=== PATIENT | male | born 1970 | race Caucasian/White ===

== ENCOUNTER 2016-02-21 12:49 | Emergency (ER) | payer OTHER ==
[2016-02-21] MEDS ORDERED: ASPIRIN 81 MG CHEW TABLET As Ordered ONE (13:20)
[2016-02-21] MEDS ORDERED: MORPHINE 2 MG/ML 1ML SYRINGE As Ordered ONE (13:23)
[2016-02-21] MEDS ORDERED: ONDANSETRON 4MG/2ML VIAL (J2405) As Ordered ONE (13:23)
[2016-02-21 13:38] LABS: BASO # 0.1 K/mm3 (0.0-0.2); BASO % 1.3 % (0.0-1.0); EOS # 0.2 K/mm3 (0.0-0.50); EOS % 2.4 % (0.0-3.0); LARGE UNSTAINED CELL # 0.2 K/mm3 (0.0-0.4); LARGE UNSTAINED CELL % 2.2 % (0.0-4.0); LYMPH # 1.9 K/mm3 (1.5-4.5); LYMPH % 17.8 % (24.0-44.0); MEAN CORPUSCULAR HEMOGLOBIN 30.2 pg (27.0-33.0); MEAN CORPUSCULAR HGB CONC 32.9 g/dl (32.0-36.5); MEAN CORPUSCULAR VOLUME 91.7 fl (80.0-96.0); MONO # 0.6 K/mm3 (0.0-0.8); MONO % 6.5 % (0.0-5.0); NEUTROPHILS # 6.6 K/mm3 (1.8-7.7); NEUTROPHILS % 69.8 % (36.0-66.0); PLATELET COUNT, AUTOMATED 184 k/mm3 (150-450); RED CELL DISTRIBUTION WIDTH 13.4 % (11.5-14.5); WHITE BLOOD COUNT 9.4 K/mm3 (4.0-10.0)
[2016-02-21 13:40] LABS: INR 0.96
[2016-02-21 13:46] LABS: ALBUMIN 4.4 GM/DL (3.2-5.2); ALBUMIN/GLOBULIN RATIO 1.76 (1.00-1.93); BILIRUBIN,DIRECT 0.2 MG/DL (0.0-0.2); BILIRUBIN,TOTAL 0.5 MG/DL (0.2-1.0); TOTAL PROTEIN 6.9 GM/DL (6.4-8.2)
[2016-02-21 13:47] LABS: ANION GAP 10 MEQ/L (8-16); BLOOD UREA NITROGEN 21 MG/DL (7-18); CALCIUM LEVEL 8.7 MG/DL (8.5-10.1); CARBON DIOXIDE LEVEL 25 MEQ/L (21-32); CHLORIDE LEVEL 108 MEQ/L (98-107); CREATININE FOR GFR 1.28 MG/DL (0.70-1.30); GLOMERULAR FILTRATION RATE > 60.0 (>60); GLUCOSE, FASTING 128 MG/DL (70-105); POTASSIUM SERUM 3.6 MEQ/L (3.5-5.1); SODIUM LEVEL 143 MEQ/L (136-145)
--- NOTE | 2016-02-21 13:57 | REP ---
Portable chest: Single view. History: Chest pain. Comparison study: October 26, 2015. Findings: EKG monitoring electrodes overlie the chest. Lungs are well inflated and clear. Heart size is normal. Pulmonary vasculature is not increased. Pleural angles are sharp. Impression: No active disease. Signed by Khanh Rizo MD 02/21/2016 01:47 P
[2016-02-21] MEDS ORDERED: ISOVUE-370 76% 100ML VIAL (Q9967) As Ordered ONE (14:23)
--- NOTE | 2016-02-21 17:08 | REP ---
CT pulmonary angiogram: With IV contrast. History: Chest pain. Comparison studies: November 20, 2013. Contrast dose: 75 cc's of Isovue [address] technique: Helical scanning is acquired and overlapping 1.5 mm and contiguous 3 mm axial images are reformatted. In addition, a 3-D work station is deployed to generate thick slab maximum intensity projection images in sagittal and coronal imaging projections. CT pulmonary angiographic findings: There is good opacification of the pulmonary arterial tree. There is no CT evidence of pulmonary embolism. Thoracic aorta enhances homogeneously and is normal in caliber and contour. There is no evidence of pleural or pericardial effusion. No hilar or mediastinal mass or adenopathy is appreciated. No extrathoracic mass or adenopathy is seen. No adrenal lesion is observed. The visualized upper abdominal structures are unremarkable. No infiltrate, atelectasis or mass lesion is seen in the lung natarajan. Bone window settings show no evidence of fracture or bony destructive lesion. Impression: Negative CT pulmonary angiogram. No CT evidence of pulmonary embolism. Signed by Khanh Rizo MD 02/21/2016 05:35 P
[2016-02-21] MEDS ORDERED: CLOPIDOGREL 300 MG TAB (PLAVIX) As Ordered ONE (18:10)
[2016-02-21] MEDS ORDERED: ENOXAPARIN 100MG/1ML SYRINGE (J1650) As Ordered ONE (18:10)
[2016-02-21] MEDS ORDERED: NITROGLYCERIN 2% OINT 1 GM *U/D* PKT As Ordered ONE (18:20)
[2016-02-21] MEDS ORDERED: LORazepam 2 MG/ML VIAL (J2060) As Ordered ONE (18:56)
--- NOTE | 2016-02-21 19:04 | EDDOCDS ---
Nurse's Notes [facility] [employer] Name: Scar Dinh Age: 45 yrs Sex: Male : 1970 Arrival Date: 02/21/2016 Time: 12:49 Bed 19 Private MD: Fernanda Chaney E Diagnosis: Non-ST elevation (NSTEMI) myocardial infarction Presentation: 02/20 12:56 Red Flag criteria, patient assessed and taken directly to a bed. dls 13:09 Presenting complaint: Patient states: Patient states he was out shoveling when at 1130 js13 he started feeling a pressure in his chest that radiated to his jaw with both arm becoming numb and tingly. Aspirin was not taken prior to arrival. Adult Sepsis Screening: The patient does not have new or worsening altered mentation. Patient's respiratory rate is less than 22. Systolic blood pressure is greater than 100. Patient has a qSOFA score of 0- Negative Sepsis Screen. Suicide/Homicide risk assessment- the patient denies having any suicidal and/or homicidal ideations and does not present with any other emotional, behavioral or mental health complaints. Status: . Transition of care: patient was not received from another setting of care. 13:09 Acuity: PITER Level 2 js13 13:09 Method Of Arrival: Walkin/Carried/Asstd js13 Triage Assessment: 13:12 General: Appears in no apparent distress, Behavior is appropriate for age, cooperative. js13 Pain: Location: chest. Pt Declines HIV testing. Neurological: Level of Consciousness is awake, alert. Cardiovascular: Rhythm is sinus rhythm Chest pain is described as mild, quality is pressure, radiates jaw(s) episodes are continuous began 2 hours prior to arrival. Respiratory: Airway is patent Respiratory effort is even, unlabored, Respiratory pattern is regular, symmetrical. Derm: Skin is pink, warm & dry. Historical: - Allergies: Codeine Sulfate (Anaphylaxis); - Home Meds: 1. Celexa 20 mg Oral tab 1 tab once daily 2. clonazepam 1 mg Oral tab 1 tab daily 3. multivitamin Oral tab 1 tab daily 4. Tricor 145 mg Oral tab 1 tab once daily - PMHx: Anxiety; Chronic Low Back Pain; Hypercholesterolemia; PTSD; - PSHx: Tonsillectomy; Hernia repair- Left inguinal; Hernia repair- Right inguinal; Arthroscopy, Knee- Right; repair right fifth finger; - Social history: Smoking status: Patient uses tobacco products, heavy tobacco smoker. No barriers to communication noted, The patient speaks fluent [place]. - Family history: Pertinent for heart disease. - : The pt / caregiver states he / she is not on anticoagulants. Home medication list is obtained from the patient. - Exposure Risk Screening:: None identified. Screenin:51 Screening information is obtained from the patient. Fall risk: No risks identified. ld5 Assistance ADL's: requires no assistance with activities of daily living. Abuse/DV Screen: The patient / caregiver reports he/she is: not in a situation that causes fear, pain or injury. Nutritional screening: No deficits noted. Advance Directives: There is no active DNR order. home support is adequate. Assessment: 13:14 General: Appears in no apparent distress, Behavior is cooperative, pleasant. Pain: ld5 Location: mid-sternal area Pain currently is 5 out of 10 on a pain scale. Pain radiates to neck Quality of pain is described as aching, pressure. Neurological: Level of Consciousness is awake, alert. 13:14 Cardiovascular: Chest pain is described as mild, quality is pressure, radiates to right ld5 to left jaw(s) began 1130. Cardiovascular: Capillary refill < 3 seconds in bilateral fingers Edema is absent. Respiratory: Airway is patent Respiratory effort is even, unlabored, Breath sounds are clear bilaterally. Reports shortness of breath. GI: Abdomen is non- distended Bowel sounds present X 4 quads. Abd is soft and non tender X 4 quads. Denies nausea, vomiting. Derm: Skin is intact, Skin is dry, flaking skin to face Skin is flushed, on face. Musculoskeletal: Range of motion intact in all extremities. 13:25 General: Pt reports headache after nitro. Will monitor to assess. ld5 14:00 General: Pt reports 0.5/10 pain. Second nitro given by Dr. Sal. Pt resting comfortably ld5 in bed. SO at bedside. Call barry within reach. Will continue to monitor. 14:45 General: Pt up to bedside to urinate. Tolerated well. Provider gave permission for ld5 clear fluids. Pt requested water and water given. Pt reports chest pressure has resolved but discomfort to jaw is back. Call barry within reach. Will continue to monitor. 15:27 General: Appears in no apparent distress, Behavior is cooperative, pleasant. ld5 Neurological: Level of Consciousness is awake, alert. Respiratory: Airway is patent Respiratory effort is even, unlabored. 15:47 General: Pt resting comfortably in bed. Aware of plan for repeat blood work and EKG. ld5 Will continue to monitor. 16:50 General: Appears in no apparent distress, Behavior is cooperative, No return of ld5 symptoms. Will continue to monitor. 17:35 General: Blood work sent to lab and EKG repeated. Pt resting comfortably in bed. Denies ld5 any needs. Will continue to monitor. 18:07 General: Pt sitting up in bed watching TV. Denies pain. SO at bedside. Will continue to ld5 monitor. 18:51 General: Pt continues to deny pain. Aware of plan for transport to [facility]. Denies any ld5 needs. Fluids started for transport. Will continue to monitor. 19:01 General: Pt appears anxious. Reports feeling nervous about the diagnosis. Requesting ld5 medication to help relax. BP elevated. Provider aware and med given. Vital Signs: 12:51 BP 169 / 108; Pulse 73; Resp 16; Pulse Ox 98% ; elp 13:22 BP 150 / 84 (auto/); ld5 13:22 Pulse 80 MON; Pulse Ox 97% ; ld5 13:34 BP 143 / 80 (auto/); ld5 13:35 Pulse 70 MON; Pulse Ox 97% ; ld5 13:47 Temp 97.6(O); Weight 97.52 kg (R); Height 72 in. (182.88 cm) (R); ct3 13:58 BP 149 / 84; Pulse 69; ld5 14:03 Pulse 68 MON; Pulse Ox 95% ; ld5 14:04 BP 138 / 80 (auto/); ld5 14:19 BP 129 / 82 (auto/); ld5 14:19 Pulse 64 MON; Pulse Ox 96% ; ld5 14:34 BP 132 / 81 (auto/); ld5 14:37 Pulse 70 MON; Pulse Ox 96% ; ld5 14:49 BP 138 / 82 (auto/); ld5 14:50 Pulse 76 MON; Pulse Ox 95% ; ld5 15:19 BP 114 / 74 (auto/); ld5 15:19 Pulse 56 MON; Pulse Ox 96% ; ld5 15:34 BP 134 / 86 (auto/); ld5 15:34 Pulse 60 MON; Pulse Ox 96% ; ld5 15:49 BP 138 / 85 (auto/); ld5 15:49 Pulse 58 MON; Pulse Ox 94% ; ld5 16:04 BP 130 / 83 (auto/); ld5 16:04 Pulse 58 MON; Resp 16; Pulse Ox 94% ; Pain 0/10; ld5 16:49 BP 126 / 75 (auto/); ld5 16:49 Pulse 58 MON; Pulse Ox 95% ; ld5 17:04 BP 119 / 75 (auto/); ld5 17:05 Pulse 58 MON; Pulse Ox 96% ; ld5 18:04 BP 128 / 83 (auto/); ld5 18:04 Pulse 58 MON; Resp 16; Temp 96.4(O); Pulse Ox 95% ; Pain 0/10; ld5 18:43 BP 164 / 102 (auto/); ld5 18:43 Pulse 64 MON; Pulse Ox 97% ; ld5 18:49 BP 166 / 104 (auto/); ld5 18:49 Pulse 64 MON; Pulse Ox 97% ; ld5 18:53 BP 167 / 102 (auto/); ld5 18:53 Pulse 64 MON; Pulse Ox 97% ; ld5 19:02 BP 161 / 101; Pulse 61; Resp 16; Temp 96.6; Pulse Ox 98% on R/A; Pain 0/10; ld5 13:47 Body Mass Index 29.16 (97.52 kg, 182.88 cm) ct3 Vitals: 12:51 Log In Time: February 21, 2016 at 12:48. RN notified that patient meets Red Flag elp criteria. ED Course: 12:51 Patient visited by Gi Byers PCA. elp 12:51 Fernanda Chaney is Private Physician. elp 12:51 Patient moved to Waiting elp 12:52 Patient visited by Gi Byers PCA. elp 12:52 Patient moved to 19 elp 12:58 Accompanied by Family Member, Patient has correct armband on for positive ct3 identification. Placed in gown. Bed in low position. Call light in reach. Side rails up X2. provisioning analyst on. Pulse ox on. NIBP on. 12:58 EKG done. (by ED staff). Reviewed by Eric Gonzalez MD. ct3 13:05 Patient visited by Maria Elena Payne PCA. ct3 13:10 Robert Roth MD is Attending Physician. ml 13:10 Patient visited by Robert Roth MD. ml 13:11 Triage Initiated js13 13:42 Inserted saline lock: 20 gauge in right antecubital area and blood collected. The ld5 patient tolerated the procedure well. Labs drawn. (by ED staff). Sent per order to lab. 13:43 Patient visited by Fernanda David RN. ld5 13:47 Patient visited by Maria Elena Payne PCA. ct3 14:12 Patient visited by Fernanda David RN. ld5 14:18 [facility] Payment Agreement was scanned into [employer] and attached to record. dm19 14:20 Patient visited by Fernanda David RN. ld5 14:30 Chest, 1 View Returned. EDMS 14:56 Patient visited by Fernanda David RN. ld5 15:03 Patient visited by Fernanda David RN. ld5 15:28 Patient visited by Fernanda David RN. ld5 15:48 Patient visited by Fernanda David RN. ld5 16:18 Patient visited by Fernanda David RN. ld5 16:51 Patient visited by Fernanda David RN. ld5 17:10 CT Chest Angio R/O PE Returned. EDMS 17:24 Patient visited by Fernanda David RN. ld5 17:33 EKG done. (by ED staff). Reviewed by Robert Roth MD. ct3 17:42 Patient visited by Maria Elena Payne PCA. ct3 18:08 Patient visited by Fernanda David RN. ld5 18:36 No procedures done that require assistance. ld5 18:54 Patient visited by Fernanda David RN. ld5 18:54 The patient / caregiver is instructed regarding the plan of care and ED course. ld5 19:02 Patient visited by Fernanda David RN. ld5 Administered Medications: 13:15 Drug: NS 0.9% 1000 ml [sodium chloride 0.9 % intravenous solution] Route: IV; Rate: ld5 bolus; Site: right antecubital; 15:03 Follow up: IV Status: Completed infusion; IV Intake: 1000ml ld5 13:20 Drug: Nitrostat 0.4 mg [Nitrostat 0.4 mg sublingual tablet (1 tabs)] Route: Sublingual; ld5 13:58 Follow up: BP 149 / 84; Pulse 69 bpm ld5 13:27 Drug: Aspirin 243 mg [aspirin 81 mg chewable tablet (3 tabs)] Route: PO; ld5 13:29 Drug: Ondansetron 4 mg [ondansetron HCl 2 mg/mL intravenous solution (2 mL)] Route: ld5 IVP; Site: right antecubital; 13:35 Drug: morphine 2 mg [morphine 2 mg/mL intravenous cartridge (1 mL)] Route: IVP; Site: ld5 right antecubital; 14:05 Follow up: Response: Pain is decreased; see vital record. Pain of 0.5/10 ld5 14:00 Drug: Nitrostat 0.4 mg [Nitrostat 0.4 mg sublingual tablet (1 tabs)] {Note: given by ld5 Dr. Sal.} Route: Sublingual; 14:18 Follow up: pt reports jaw pain has resolved but continues with some intermittent chest ld5 pressure. 3rd nitro held per Dr. Sal 18:22 Drug: Plavix - Clopidogrel 600 mg [clopidogrel 75 mg tablet (8 tabs)] {Note: 2 300 mg ld5 tablets.} Route: PO; 18:22 Drug: Enoxaparin (1mg/kg) 100 mg [enoxaparin 100 mg/mL subcutaneous syringe (1 mL)] ld5 {Co-Signature: pml (Lola Hyde RN).} Route: Sub-Q; Site: left lower abdomen; 18:51 Drug: Nitro-Bid 0.5 inches [Nitro-Bid 2 % transdermal ointment (0.5 inches)] Route: ld5 Transdermal; Site: anterior chest wall; 18:51 Drug: NS 0.9% 1000 ml [sodium chloride 0.9 % intravenous solution] Route: IV; Rate: 100 ld5 mL/hr; Site: right antecubital; 18:51 Follow up: IV Status: Infusion continued on transport ld5 19:00 Drug: LORazepam 1 mg [lorazepam 2 mg/mL injection solution (0.5 mL)] Route: IVP; Site: ld5 right antecubital; Intake: 15:03 IV: 1000.00ml; Total: 1000.00ml. ld5 Output: 14:56 Urine: 550.00ml (Voided); Total: 550.00ml. ld5 Order Results: Lab Order: CBC with Diff; SPEC'M 02/21/16 13:12 Test: WHITE BLOOD COUNT; Value: 9.4; Range: 4.0-10.0; Units: K/mm3; Status: F Test: RED BLOOD COUNT; Value: 5.24; Range: 4.30-6.10; Units: M/mm3; Status: F Test: HEMOGLOBIN; Value: 15.8; Range: 14.0-18.0; Units: g/dl; Status: F Test: HEMATOCRIT; Value: 48.0; Range: 42.0-52.0; Units: %; Status: F Test: MEAN CORPUSCULAR VOLUME; Value: 91.7; Range: 80.0-96.0; Units: fl; Status: F Test: MEAN CORPUSCULAR HEMOGLOBIN; Value: 30.2; Range: 27.0-33.0; Units: pg; Status: F Test: MEAN CORPUSCULAR HGB CONC; Value: 32.9; Range: 32.0-36.5; Units: g/dl; Status: F Test: RED CELL DISTRIBUTION WIDTH; Value: 13.4; Range: 11.5-14.5; Units: %; Status: F Test: PLATELET COUNT, AUTOMATED; Value: 184; Range: 150-450; Units: k/mm3; Status: F Test: NEUTROPHILS %; Value: 69.8; Range: 36.0-66.0; Abnormal: Above high normal; Units: %; Status: F Test: LYMPH %; Value: 17.8; Range: 24.0-44.0; Abnormal: Below low normal; Units: %; Status: F Test: MONO %; Value: 6.5; Range: 0.0-5.0; Abnormal: Above high normal; Units: %; Status: F Test: EOS %; Value: 2.4; Range: 0.0-3.0; Units: %; Status: F Test: BASO %; Value: 1.3; Range: 0.0-1.0; Abnormal: Above high normal; Units: %; Status: F Test: LARGE UNSTAINED CELL %; Value: 2.2; Range: 0.0-4.0; Units: %; Status: F Test: NEUTROPHILS #; Value: 6.6; Range: 1.8-7.7; Units: K/mm3; Status: F Test: LYMPH #; Value: 1.9; Range: 1.5-4.5; Units: K/mm3; Status: F Test: MONO #; Value: 0.6; Range: 0.0-0.8; Units: K/mm3; Status: F Test: EOS #; Value: 0.2; Range: 0.0-0.50; Units: K/mm3; Status: F Test: BASO #; Value: 0.1; Range: 0.0-0.2; Units: K/mm3; Status: F Test: LARGE UNSTAINED CELL #; Value: 0.2; Range: 0.0-0.4; Units: K/mm3; Status: F Lab Order: MED Profile; [facility]' 02/21/16 13:12 Test: GLUCOSE, FASTING; Value: 128; Range: 70-105; Abnormal: Above high normal; Units: MG/DL; Status: F Test: BLOOD UREA NITROGEN; Value: 21; Range: 7-18; Abnormal: Above high normal; Units: MG/DL; Status: F Test: CREATININE FOR GFR; Value: 1.28; Range: 0.70-1.30; Units: MG/DL; Status: F Test: GLOMERULAR FILTRATION RATE; Value: > 60.0; Range: >60; Status: F Test: SODIUM LEVEL; Value: 143; Range: 136-145; Units: MEQ/L; Status: F Test: POTASSIUM SERUM; Value: 3.6; Range: 3.5-5.1; Units: MEQ/L; Status: F Test: CHLORIDE LEVEL; Value: 108; Range: 98-107; Abnormal: Above high normal; Units: MEQ/L; Status: F Test: CARBON DIOXIDE LEVEL; Value: 25; Range: 21-32; Units: MEQ/L; Status: F Test: ANION GAP; Value: 10; Range: 8-16; Units: MEQ/L; Status: F Test: CALCIUM LEVEL; Value: 8.7; Range: 8.5-10.1; Units: MG/DL; Status: F Test Note: ; Units are mL/min/1.73 m2 Chronic Kidney Disease Staging per NKF: Stage I & II GFR >=60 Normal to Mildly Decreased Stage III GFR 30-59 Moderately Decreased Stage IV GFR 15-29 Severely Decreased Stage V GFR <15 Very Little GFR Left ESRD GFR <15 on LOT ASSOCIATE Lab Order: CIP; SPEC'02/21/16 13:12 Test: CPK CREATINE PHOSPHOKINASE; Value: 172; Range: 39-308; Units: U/L; Status: F Test: CK-MB VALUE MASS; Value: 1.3; Range: 0.0-3.6; Units: NG/ML; Status: F Test: MB/CK RELATIVE INDEX; Value: 0.75; Range: < OR =4; Status: F Test Note: ; DIAGNOSIS CRITERIA MMB ng/ml Relative Index (RI) NON-AMI < or = 5 N/A SAL ZONE > 5 < or = 4 AMI > 5 > 4 Lab Order: Troponin; SPEC02/21/16 13:12 Test: TROPONIN I; Value: < 0.02; Range: < 0.10; Units: NG/ML; Status: F Test Note: ; Troponin I Reference Interval for [place] LOCI: 99th Percentile= 0.00-0.045 ng/ml Risk Stratification: <= 0.10 ng/ml Decreased Risk for Adverse Clinical Events. 0.10-1.50 ng/ml Increased Risk for Adverse Clinical Events. Evaluation of additional criterion and/or repeat testing in 2-6 hours is suggested to rule out myocardial damage. >= 1.50 ng/ml Indicative of Myocardial Injury. Lab Order: PT/INR; SPEC02/21/16 13:12 Test: PROTHROMBIN TIME; Value: 12.9; Range: 12.3-14.5; Units: SECONDS; Status: F Test: INR; Value: 0.96; Status: F Test Note: ; THERAPUTIC HUMAN INR VALUES INDICATIONS NORMAL RANGES PROPHYLAXIS/TREATMENT OF: VENOUS THROMBOSIS 2.0-3.0 PULMONARY EMBOLISM 2.0-3.0 PREVENTION OF SYSTEMIC EMBOLISM FROM: TISSUE HEART VALVES 2.0-3.0 ACUTE MYOCARDIAL INFARCTION 2.0-3.0 VALVULAR HEART DISEASE 2.0-3.0 ATRIAL FIBRILLATION 2.0-3.0 MECHANICAL VALVES(HIGH RISK) 2.5-3.5 RECURRENT MYOCARDIAL INFARCTION 2.5-3.5 Lab Order: PTT; [facility] 02/21/16 13:12 Test: PARTIAL THROMBOPLASTIN TIME; Value: 41.4; Range: 26.6-37.1; Abnormal: Above high normal; Units: SECONDS; Status: F Lab Order: Liver Profile; [facility] 02/21/16 13:12 Test: AST/SGOT; Value: 19; Range: 15-37; Units: U/L; Status: F Test: ALT/SGPT; Value: 36; Range: 12-78; Units: U/L; Status: F Test: ALKALINE PHOSPHATASE; Value: 77; Range: 45-117; Units: U/L; Status: F Test: BILIRUBIN,TOTAL; Value: 0.5; Range: 0.2-1.0; Units: MG/DL; Status: F Test: BILIRUBIN,DIRECT; Value: 0.2; Range: 0.0-0.2; Units: MG/DL; Status: F Test: TOTAL PROTEIN; Value: 6.9; Range: 6.4-8.2; Units: GM/DL; Status: F Test: ALBUMIN; Value: 4.4; Range: 3.2-5.2; Units: GM/DL; Status: F Test: ALBUMIN/GLOBULIN RATIO; Value: 1.76; Range: 1.00-1.93; Status: F Lab Order: CARDIAC MARKER PANEL; [facility] 02/21/16 17:15 Test: CPK CREATINE PHOSPHOKINASE; Value: 180; Range: 39-308; Units: U/L; Status: F Test: CK-MB VALUE MASS; Value: 5.5; Range: 0.0-3.6; Abnormal: Above high normal; Units: NG/ML; Status: F Test: MB/CK RELATIVE INDEX; Value: 3.05; Range: < OR =4; Status: F Test: TROPONIN I; Value: 0.96; Range: < 0.10; Abnormal: High; Units: NG/ML; Status: F Test Note: ; DIAGNOSIS CRITERIA MMB ng/ml Relative Index (RI) NON-AMI < or = 5 N/A SAL ZONE > 5 < or = 4 AMI > 5 > 4 Radiology Order: Chest, 1 View Test: Chest, 1 View REASON FOR EXAMINATION: cp; Portable chest: Single view.; ; History: Chest pain.; ; Comparison study: October 26, 2015.; ; Findings: EKG monitoring electrodes overlie the chest. Lungs are well inflated; and clear. Heart size is normal. Pulmonary vasculature is not increased.; Pleural angles are sharp.; ; Impression:; ; No active disease.; ; ; Signed by; Khanh Rizo MD 02/21/2016 01:47 P; Radiology Order: CT Chest Angio R/O PE Test: CT Chest Angio R/O PE REASON FOR EXAMINATION: Chest Pain; CT pulmonary angiogram: With IV contrast.; ; History: Chest pain.; ; Comparison studies: November 20, 2013.; ; Contrast dose: 75 cc's of Isovue 370 are administered intravenously.; ; CT technique: Helical scanning is acquired and overlapping 1.5 mm and contiguous; 3 mm axial images are reformatted. In addition, a 3-D work station is deployed; to generate thick slab maximum intensity projection images in sagittal and; coronal imaging projections.; ; CT pulmonary angiographic findings: There is good opacification of the pulmonary; arterial tree. There is no CT evidence of pulmonary embolism. Thoracic aorta; enhances homogeneously and is normal in caliber and contour. There is no; evidence of pleural or pericardial effusion. No hilar or mediastinal mass or; adenopathy is appreciated. No extrathoracic mass or adenopathy is seen. No; adrenal lesion is observed. The visualized upper abdominal structures are; unremarkable. No infiltrate, atelectasis or mass lesion is seen in the lung; natarajan. Bone window settings show no evidence of fracture or bony destructive; lesion.; ; Impression:; ; Negative CT pulmonary angiogram. No CT evidence of pulmonary embolism.; ; ; Signed by; Khanh Rizo MD 02/21/2016 05:35 P; Outcome: 18:28 ER care complete, transfer ordered by Provider. ml 18:36 CT Study completed. Admission hand-off: Report called to Teena Mejia RN at [facility]. ld5 18:53 Discharge Assessment: Patient awake, alert and oriented x 3. No cognitive and/or ld5 functional deficits noted. Patient verbalized understanding of disposition instructions. patient administered narcotics - yes. Patient was admitted to the hospital or transferred to another facility. [facility] to accompanying personnel Miles Faith. Condition: stable. Property :Personal belongings accompany Pt. 19:02 Patient left the ED. ld5 Signatures: Dispatcher [employer] EDNV Robert Roth MD MD Mary Dejesus RN RN Fernanda Riddle RN RN ld5 Maria Elena Payne, DATA INTEGRATION ANALYST DATA INTEGRATION ANALYST ct3 Zaida ToureRN RN js13 Gi Byers, DATA INTEGRATION ANALYST DATA INTEGRATION ANALYST elp Kierra Gresham dm19 Lola Hyde RN pml MTDD
--- NOTE | 2016-02-21 19:04 | EDDOCDS ---
Physician Documentation [facility] Name: Scar Dinh Age: 45 yrs Sex: Male : 1970 Arrival Date: 02/21/2016 Time: 12:49 Bed 19 Private MD: Fernanda Chaney E Disposition: 02/20 18:28 Critical Care:. ml Disposition: 02/21/16 18:28 Transfer ordered to [facility]. Diagnosis is Non-ST elevation (NSTEMI) myocardial infarction. - Reason for transfer: Higher level of care. - Accepting physician is dr mortensen. - Condition is Stable. - Problem is new. - Symptoms have improved. Historical: - Allergies: Codeine Sulfate (Anaphylaxis); - Home Meds: 1. Celexa 20 mg Oral tab 1 tab once daily 2. clonazepam 1 mg Oral tab 1 tab daily 3. multivitamin Oral tab 1 tab daily 4. Tricor 145 mg Oral tab 1 tab once daily - PMHx: Anxiety; Chronic Low Back Pain; Hypercholesterolemia; PTSD; - PSHx: Tonsillectomy; Hernia repair- Left inguinal; Hernia repair- Right inguinal; Arthroscopy, Knee- Right; repair right fifth finger; - Social history: Smoking status: Patient uses tobacco products, heavy tobacco smoker. No barriers to communication noted, The patient speaks fluent Croatian. - Family history: Pertinent for heart disease. - : The pt / caregiver states he / she is not on anticoagulants. Home medication list is obtained from the patient. - Exposure Risk Screening:: None identified. Vital Signs: 12:51 BP 169 / 108; Pulse 73; Resp 16; Pulse Ox 98% ; elp 13:22 BP 150 / 84 (auto/); ld5 13:22 Pulse 80 MON; Pulse Ox 97% ; ld5 13:34 BP 143 / 80 (auto/); ld5 13:35 Pulse 70 MON; Pulse Ox 97% ; ld5 13:47 Temp 97.6(O); Weight 97.52 kg / 214.99 lbs (R); Height 72 in. (182.88 cm) (R); ct3 13:58 BP 149 / 84; Pulse 69; ld5 14:03 Pulse 68 MON; Pulse Ox 95% ; ld5 14:04 BP 138 / 80 (auto/); ld5 14:19 BP 129 / 82 (auto/); ld5 14:19 Pulse 64 MON; Pulse Ox 96% ; ld5 14:34 BP 132 / 81 (auto/); ld5 14:37 Pulse 70 MON; Pulse Ox 96% ; ld5 14:49 BP 138 / 82 (auto/); ld5 14:50 Pulse 76 MON; Pulse Ox 95% ; ld5 15:19 BP 114 / 74 (auto/); ld5 15:19 Pulse 56 MON; Pulse Ox 96% ; ld5 15:34 BP 134 / 86 (auto/); ld5 15:34 Pulse 60 MON; Pulse Ox 96% ; ld5 15:49 BP 138 / 85 (auto/); ld5 15:49 Pulse 58 MON; Pulse Ox 94% ; ld5 16:04 BP 130 / 83 (auto/); ld5 16:04 Pulse 58 MON; Resp 16; Pulse Ox 94% ; Pain 0/10; ld5 16:49 BP 126 / 75 (auto/); ld5 16:49 Pulse 58 MON; Pulse Ox 95% ; ld5 17:04 BP 119 / 75 (auto/); ld5 17:05 Pulse 58 MON; Pulse Ox 96% ; ld5 18:04 BP 128 / 83 (auto/); ld5 18:04 Pulse 58 MON; Resp 16; Temp 96.4(O); Pulse Ox 95% ; Pain 0/10; ld5 18:43 BP 164 / 102 (auto/); ld5 18:43 Pulse 64 MON; Pulse Ox 97% ; ld5 18:49 BP 166 / 104 (auto/); ld5 18:49 Pulse 64 MON; Pulse Ox 97% ; ld5 18:53 BP 167 / 102 (auto/); ld5 18:53 Pulse 64 MON; Pulse Ox 97% ; ld5 19:02 BP 161 / 101; Pulse 61; Resp 16; Temp 96.6; Pulse Ox 98% on R/A; Pain 0/10; ld5 13:47 Body Mass Index 29.16 (97.52 kg, 182.88 cm) ct3 MDM: 12:55 ECG WITH READING ER PHYS+CARDIAG ordered. EDMS 13:27 IV Saline Lock ordered. ml 13:27 Actor Understudy/Pulse Ox/q 15 min VS ordered. ml 13:27 Rhythm Strip to chart ordered. ml 13:27 Aspirin Chewable Tablet 243 mg PO once ordered. ml 13:27 Nitrostat 0.4 mg Sublingual every 5 minutes; hold if SBP<90mmHg.Document Pain Score ml Response to Each Dose x3 ordered. 13:27 morphine 2 mg IVP once ordered. ml 13:27 Ondansetron 4 mg IVP once ordered. ml 13:28 NS 0.9% 1000 ml IV at bolus once ordered. ml 13:28 Oral Temp ordered. ml 13:28 CBC with Diff Ordered. EDMS 13:28 MED Profile Ordered. EDMS 13:28 CIP Ordered. EDMS 13:29 Troponin Ordered. EDMS 13:29 PT/INR Ordered. EDMS 13:29 PTT Ordered. EDMS 13:29 Chest, 1 View Ordered. EDMS 13:29 Liver Profile Ordered. EDMS 13:52 CBC with Diff Reviewed. ml 13:52 MED Profile Reviewed. ml 13:52 PTT Reviewed. ml 13:52 CIP Reviewed. ml 13:52 Troponin Reviewed. ml 13:52 PT/INR Reviewed. ml 13:52 Liver Profile Reviewed. ml 13:53 Misc. Nursing Order ordered. ml 13:54 Repeat EKG (put time details section) ordered. ml 13:54 Redraw CIP &Troponin (put time in details section) ordered. ml 13:57 Redraw CIP &Troponin (put time in details section) complete. ar3 13:57 Repeat EKG (put time details section) complete. ar3 13:58 ECG WITH READING ER PHYS ordered. EDMS 13:58 CARDIAC MARKER PANEL Ordered. EDMS 14:17 Redraw CIP &Troponin (put time in details section) ordered. ml 14:17 Repeat EKG (put time details section) ordered. ml 14:18 [facility] [place] was scanned into [employer] and attached to record. dm19 14:18 Financial registration complete. dm19 14:18 CT Chest Angio R/O PE Ordered. EDMS 14:25 Repeat EKG (put time details section) complete. ar3 14:25 Redraw CIP &Troponin (put time in details section) complete. ar3 14:26 ECG WITH READING ER PHYS ordered. EDMS 18:03 CARDIAC MARKER PANEL Reviewed. ml 18:03 Chest, 1 View Reviewed. ml 18:03 CT Chest Angio R/O PE Reviewed. ml 18:06 Plavix - Clopidogrel 600 mg PO once ordered. ml 18:07 Enoxaparin (1mg/kg) 100 mg Sub-Q once; Ensure no Heparin in past 6hrs. Ensure any ml baseline labs are drawn. ordered. 18:44 Nitro-Bid Ointment 2 % 0.5 inches Transdermal once ordered. ml 18:51 NS 0.9% 1000 ml IV at 100 mL/hr continuous ordered. ld5 19:00 LORazepam 1 mg IVP once ordered. ld5 Administered Medications: 13:15 Drug: NS 0.9% 1000 ml [sodium chloride 0.9 % intravenous solution] Route: IV; Rate: ld5 bolus; Site: right antecubital; 15:03 Follow up: IV Status: Completed infusion; IV Intake: 1000ml ld5 13:20 Drug: Nitrostat 0.4 mg [Nitrostat 0.4 mg sublingual tablet (1 tabs)] Route: Sublingual; ld5 13:58 Follow up: BP 149 / 84; Pulse 69 bpm ld5 13:27 Drug: Aspirin 243 mg [aspirin 81 mg chewable tablet (3 tabs)] Route: PO; ld5 13:29 Drug: Ondansetron 4 mg [ondansetron HCl 2 mg/mL intravenous solution (2 mL)] Route: ld5 IVP; Site: right antecubital; 13:35 Drug: morphine 2 mg [morphine 2 mg/mL intravenous cartridge (1 mL)] Route: IVP; Site: ld5 right antecubital; 14:05 Follow up: Response: Pain is decreased; see vital record. Pain of 0.5/10 ld5 14:00 Drug: Nitrostat 0.4 mg [Nitrostat 0.4 mg sublingual tablet (1 tabs)] {Note: given by ld5 Dr. Sal.} Route: Sublingual; 14:18 Follow up: pt reports jaw pain has resolved but continues with some intermittent chest ld5 pressure. 3rd nitro held per Dr. Sal 18:22 Drug: Plavix - Clopidogrel 600 mg [clopidogrel 75 mg tablet (8 tabs)] {Note: 2 300 mg ld5 tablets.} Route: PO; 18:22 Drug: Enoxaparin (1mg/kg) 100 mg [enoxaparin 100 mg/mL subcutaneous syringe (1 mL)] ld5 {Co-Signature: pml (Lola Hyde RN).} Route: Sub-Q; Site: left lower abdomen; 18:51 Drug: Nitro-Bid 0.5 inches [Nitro-Bid 2 % transdermal ointment (0.5 inches)] Route: ld5 Transdermal; Site: anterior chest wall; 18:51 Drug: NS 0.9% 1000 ml [sodium chloride 0.9 % intravenous solution] Route: IV; Rate: 100 ld5 mL/hr; Site: right antecubital; 18:51 Follow up: IV Status: Infusion continued on transport ld5 19:00 Drug: LORazepam 1 mg [lorazepam 2 mg/mL injection solution (0.5 mL)] Route: IVP; Site: ld5 right antecubital; Critical Care Time: 18:28 Critical care time: Bedside Care: 120 minutes, Consultation: 20 minutes. Total time: ml 140 minutes Signatures: Dispatcher [employer] EDMS Rboert Roth MD MD ml Rabon, Alicia, RASHIDA CHEMOTHERAPIST ar3 Fernanda David RN RN ld5 Zaida Toure RN RN [id number] Kierra Gresham dm19 Lola Hyde RN pml The chart was reviewed and I authenticate all verbal orders and agree with the evaluation and treatment provided.Corrections: (The following items were deleted from the chart) 14:22 14:17 Repeat EKG (put time details section) ordered. ar3 14:22 14:17 Redraw CIP &Troponin (put time in details section) ordered. cox monett3 19:00 14:25 CARDIAC MARKER PANEL ordered. EDMI EDMS Attachments: 14:18 [facility] Payment Agreement dm19 MTDD
--- NOTE | 2016-02-21 23:02 | ECGEPIP ---
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
--- NOTE | 2016-02-21 23:06 | ECGEPIP ---
Stationary ECG Study [facility] - ED Test Date: 2016-02-21 Pat Name: JOHANN STOKES Department: Room: - Gender: M Deadener: ct : 1970 Requested By: Robert Roth Order Number: [id number] Reading MD: Eric Gonzalez Measurements Intervals [place] Rate: 53 P: 39 MN: 148 QRS: 20 QRSD: 88 T: 13 QT: 454 QTc: 428 Interpretive Statements SINUS BRADYCARDIA Electronically Signed On 02-21-2016 23:05:49 EST by Eric Gonzalez
--- NOTE | 2016-02-24 11:33 | EDDOCDS ---
Nurse's Notes [facility] Name: Scar Stokes Age: 45 yrs Sex: Male : 1970 Arrival Date: 02/21/2016 Time: 12:49 Bed 19 Private MD: Fernanda Chaney E Diagnosis: Non-ST elevation (NSTEMI) myocardial infarction Presentation: 02/20 12:56 Red Flag criteria, patient assessed and taken directly to a bed. dls 13:09 Presenting complaint: Patient states: Patient states he was out shoveling when at 1130 js13 he started feeling a pressure in his chest that radiated to his jaw with both arm becoming numb and tingly. Aspirin was not taken prior to arrival. Adult Sepsis Screening: The patient does not have new or worsening altered mentation. Patient's respiratory rate is less than 22. Systolic blood pressure is greater than 100. Patient has a qSOFA score of 0- Negative Sepsis Screen. Suicide/Homicide risk assessment- the patient denies having any suicidal and/or homicidal ideations and does not present with any other emotional, behavioral or mental health complaints. Status: . Transition of care: patient was not received from another setting of care. 13:09 Acuity: PITER Level 2 js13 13:09 Method Of Arrival: Walkin/Carried/Asstd js13 Triage Assessment: 13:12 General: Appears in no apparent distress, Behavior is appropriate for age, cooperative. js13 Pain: Location: chest. Pt Declines HIV testing. Neurological: Level of Consciousness is awake, alert. Cardiovascular: Rhythm is sinus rhythm Chest pain is described as mild, quality is pressure, radiates jaw(s) episodes are continuous began 2 hours prior to arrival. Respiratory: Airway is patent Respiratory effort is even, unlabored, Respiratory pattern is regular, symmetrical. Derm: Skin is pink, warm & dry. Historical: - Allergies: Codeine Sulfate (Anaphylaxis); - Home Meds: 1. Celexa 20 mg Oral tab 1 tab once daily 2. clonazepam 1 mg Oral tab 1 tab daily 3. multivitamin Oral tab 1 tab daily 4. Tricor 145 mg Oral tab 1 tab once daily - PMHx: Anxiety; Chronic Low Back Pain; Hypercholesterolemia; PTSD; - PSHx: Tonsillectomy; Hernia repair- Left inguinal; Hernia repair- Right inguinal; Arthroscopy, Knee- Right; repair right fifth finger; - Social history: Smoking status: Patient uses tobacco products, heavy tobacco smoker. No barriers to communication noted, The patient speaks fluent Polish. - Family history: Pertinent for heart disease. - : The pt / caregiver states he / she is not on anticoagulants. Home medication list is obtained from the patient. - Exposure Risk Screening:: None identified. Screenin:51 Screening information is obtained from the patient. Fall risk: No risks identified. ld5 Assistance ADL's: requires no assistance with activities of daily living. Abuse/DV Screen: The patient / caregiver reports he/she is: not in a situation that causes fear, pain or injury. Nutritional screening: No deficits noted. Advance Directives: There is no active DNR order. home support is adequate. Assessment: 13:14 General: Appears in no apparent distress, Behavior is cooperative, pleasant. Pain: ld5 Location: mid-sternal area Pain currently is 5 out of 10 on a pain scale. Pain radiates to neck Quality of pain is described as aching, pressure. Neurological: Level of Consciousness is awake, alert. 13:14 Cardiovascular: Chest pain is described as mild, quality is pressure, radiates to right ld5 to left jaw(s) began 1130. Cardiovascular: Capillary refill < 3 seconds in bilateral fingers Edema is absent. Respiratory: Airway is patent Respiratory effort is even, unlabored, Breath sounds are clear bilaterally. Reports shortness of breath. GI: Abdomen is non- distended Bowel sounds present X 4 quads. Abd is soft and non tender X 4 quads. Denies nausea, vomiting. Derm: Skin is intact, Skin is dry, flaking skin to face Skin is flushed, on face. Musculoskeletal: Range of motion intact in all extremities. 13:25 General: Pt reports headache after nitro. Will monitor to assess. ld5 14:00 General: Pt reports 0.5/10 pain. Second nitro given by Dr. Sal. Pt resting comfortably ld5 in bed. SO at bedside. Call barry within reach. Will continue to monitor. 14:45 General: Pt up to bedside to urinate. Tolerated well. Provider gave permission for ld5 clear fluids. Pt requested water and water given. Pt reports chest pressure has resolved but discomfort to jaw is back. Call barry within reach. Will continue to monitor. 15:27 General: Appears in no apparent distress, Behavior is cooperative, pleasant. ld5 Neurological: Level of Consciousness is awake, alert. Respiratory: Airway is patent Respiratory effort is even, unlabored. 15:47 General: Pt resting comfortably in bed. Aware of plan for repeat blood work and EKG. ld5 Will continue to monitor. 16:50 General: Appears in no apparent distress, Behavior is cooperative, No return of ld5 symptoms. Will continue to monitor. 17:35 General: Blood work sent to lab and EKG repeated. Pt resting comfortably in bed. Denies ld5 any needs. Will continue to monitor. 18:07 General: Pt sitting up in bed watching TV. Denies pain. SO at bedside. Will continue to ld5 monitor. 18:51 General: Pt continues to deny pain. Aware [facility]. Denies any ld5 needs. Fluids started for transport. Will continue to monitor. 19:01 General: Pt appears anxious. Reports feeling nervous about the diagnosis. Requesting ld5 medication to help relax. BP elevated. Provider aware and med given. Vital Signs: 12:51 BP 169 / 108; Pulse 73; Resp 16; Pulse Ox 98% ; elp 13:22 BP 150 / 84 (auto/); ld5 13:22 Pulse 80 MON; Pulse Ox 97% ; ld5 13:34 BP 143 / 80 (auto/); ld5 13:35 Pulse 70 MON; Pulse Ox 97% ; ld5 13:47 Temp 97.6(O); Weight 97.52 kg (R); Height 72 in. (182.88 cm) (R); ct3 13:58 BP 149 / 84; Pulse 69; ld5 14:03 Pulse 68 MON; Pulse Ox 95% ; ld5 14:04 BP 138 / 80 (auto/); ld5 14:19 BP 129 / 82 (auto/); ld5 14:19 Pulse 64 MON; Pulse Ox 96% ; ld5 14:34 BP 132 / 81 (auto/); ld5 14:37 Pulse 70 MON; Pulse Ox 96% ; ld5 14:49 BP 138 / 82 (auto/); ld5 14:50 Pulse 76 MON; Pulse Ox 95% ; ld5 15:19 BP 114 / 74 (auto/); ld5 15:19 Pulse 56 MON; Pulse Ox 96% ; ld5 15:34 BP 134 / 86 (auto/); ld5 15:34 Pulse 60 MON; Pulse Ox 96% ; ld5 15:49 BP 138 / 85 (auto/); ld5 15:49 Pulse 58 MON; Pulse Ox 94% ; ld5 16:04 BP 130 / 83 (auto/); ld5 16:04 Pulse 58 MON; Resp 16; Pulse Ox 94% ; Pain 0/10; ld5 16:49 BP 126 / 75 (auto/); ld5 16:49 Pulse 58 MON; Pulse Ox 95% ; ld5 17:04 BP 119 / 75 (auto/); ld5 17:05 Pulse 58 MON; Pulse Ox 96% ; ld5 18:04 BP 128 / 83 (auto/); ld5 18:04 Pulse 58 MON; Resp 16; Temp 96.4(O); Pulse Ox 95% ; Pain 0/10; ld5 18:43 BP 164 / 102 (auto/); ld5 18:43 Pulse 64 MON; Pulse Ox 97% ; ld5 18:49 BP 166 / 104 (auto/); ld5 18:49 Pulse 64 MON; Pulse Ox 97% ; ld5 18:53 BP 167 / 102 (auto/); ld5 18:53 Pulse 64 MON; Pulse Ox 97% ; ld5 19:02 BP 161 / 101; Pulse 61; Resp 16; Temp 96.6; Pulse Ox 98% on R/A; Pain 0/10; ld5 13:47 Body Mass Index 29.16 (97.52 kg, 182.88 cm) ct3 Vitals: 12:51 Log In Time: February 21, 2016 at 12:48. RN notified that patient meets Red Flag elp criteria. ED Course: 12:51 Patient visited by Gi Byers PCA. elp 12:51 Fernanda Chaney is Private Physician. elp 12:51 Patient moved to Waiting elp 12:52 Patient visited by Gi Byers PCA. elp 12:52 Patient moved to 19 elp 12:58 Accompanied by Family Member, Patient has correct armband on for positive ct3 identification. Placed in gown. Bed in low position. Call light in reach. Side rails up X2. quality assurance monitor on. Pulse ox on. NIBP on. 12:58 EKG done. (by ED staff). Reviewed by Eric Gonzalez MD. ct3 13:05 Patient visited by Maria Elena Payne PCA. ct3 13:10 Robert Roth MD is Attending Physician. ml 13:10 Patient visited by Robert Roth MD. ml 13:11 Triage Initiated js13 13:42 Inserted saline lock: 20 gauge in right antecubital area and blood collected. The ld5 patient tolerated the procedure well. Labs drawn. (by ED staff). Sent per order to lab. 13:43 Patient visited by Fernanda David RN. ld5 13:47 Patient visited by Maria Elena Payne PCA. ct3 14:12 Patient visited by Fernanda David RN. ld5 14:18 [facility] Payment Agreement was scanned into [employer] and attached to record. dm19 14:20 Patient visited by Fernanda David RN. ld5 14:30 Chest, 1 View Returned. EDMS 14:56 Patient visited by Fernanda David RN. ld5 15:03 Patient visited by Fernanda David RN. ld5 15:28 Patient visited by Fernanda David RN. ld5 15:48 Patient visited by Fernanda David RN. ld5 16:18 Patient visited by Fernanda David RN. ld5 16:51 Patient visited by Fernanda David RN. ld5 17:10 CT Chest Angio R/O PE Returned. EDMS 17:24 Patient visited by Fernanda David RN. ld5 17:33 EKG done. (by ED staff). Reviewed by Robert Roth MD. ct3 17:42 Patient visited by Maria Elena Payne PCA. ct3 18:08 Patient visited by Fernanda David RN. ld5 18:36 No procedures done that require assistance. ld5 18:54 Patient visited by Fernanda David RN. ld5 18:54 The patient / caregiver is instructed regarding the plan of care and ED course. ld5 19:02 Patient visited by Fernanda David RN. ld5 20:40 T-Sheet-- Draft Copy was scanned into [employer] and attached to record. klr 23:42 EKG-ADULT Returned. EDMS 23:42 ECG WITH READING ER PHYS Returned. EDMS 02/21 09:15 ECG/EKG was scanned into [employer] and attached to record. gb Administered Medications: 02/20 13:15 Drug: NS 0.9% 1000 ml [sodium chloride 0.9 % intravenous solution] Route: IV; Rate: ld5 bolus; Site: right antecubital; 15:03 Follow up: IV Status: Completed infusion; IV Intake: 1000ml ld5 13:20 Drug: Nitrostat 0.4 mg [Nitrostat 0.4 mg sublingual tablet (1 tabs)] Route: Sublingual; ld5 13:58 Follow up: BP 149 / 84; Pulse 69 bpm ld5 13:27 Drug: Aspirin 243 mg [aspirin 81 mg chewable tablet (3 tabs)] Route: PO; ld5 13:29 Drug: Ondansetron 4 mg [ondansetron HCl 2 mg/mL intravenous solution (2 mL)] Route: ld5 IVP; Site: right antecubital; 13:35 Drug: morphine 2 mg [morphine 2 mg/mL intravenous cartridge (1 mL)] Route: IVP; Site: ld5 right antecubital; 14:05 Follow up: Response: Pain is decreased; see vital record. Pain of 0.5/10 ld5 14:00 Drug: Nitrostat 0.4 mg [Nitrostat 0.4 mg sublingual tablet (1 tabs)] {Note: given by ld5 Dr. Sal.} Route: Sublingual; 14:18 Follow up: pt reports jaw pain has resolved but continues with some intermittent chest ld5 pressure. 3rd nitro held per Dr. Sal 18:22 Drug: Plavix - Clopidogrel 600 mg [clopidogrel 75 mg tablet (8 tabs)] {Note: 2 300 mg ld5 tablets.} Route: PO; 18:22 Drug: Enoxaparin (1mg/kg) 100 mg [enoxaparin 100 mg/mL subcutaneous syringe (1 mL)] ld5 {Co-Signature: pml (Lola Hyde RN).} Route: Sub-Q; Site: left lower abdomen; 18:51 Drug: Nitro-Bid 0.5 inches [Nitro-Bid 2 % transdermal ointment (0.5 inches)] Route: ld5 Transdermal; Site: anterior chest wall; 18:51 Drug: NS 0.9% 1000 ml [sodium chloride 0.9 % intravenous solution] Route: IV; Rate: 100 ld5 mL/hr; Site: right antecubital; 18:51 Follow up: IV Status: Infusion continued on transport ld5 19:00 Drug: LORazepam 1 mg [lorazepam 2 mg/mL injection solution (0.5 mL)] Route: IVP; Site: ld5 right antecubital; Intake: 15:03 IV: 1000.00ml; Total: 1000.00ml. ld5 Output: 14:56 Urine: 550.00ml (Voided); Total: 550.00ml. ld5 Order Results: Lab Order: CBC with Diff; SPEC'M 02/21/16 13:12 Test: WHITE BLOOD COUNT; Value: 9.4; Range: 4.0-10.0; Units: K/mm3; Status: F Test: RED BLOOD COUNT; Value: 5.24; Range: 4.30-6.10; Units: M/mm3; Status: F Test: HEMOGLOBIN; Value: 15.8; Range: 14.0-18.0; Units: g/dl; Status: F Test: HEMATOCRIT; Value: 48.0; Range: 42.0-52.0; Units: %; Status: F Test: MEAN CORPUSCULAR VOLUME; Value: 91.7; Range: 80.0-96.0; Units: fl; Status: F Test: MEAN CORPUSCULAR HEMOGLOBIN; Value: 30.2; Range: 27.0-33.0; Units: pg; Status: F Test: MEAN CORPUSCULAR HGB CONC; Value: 32.9; Range: 32.0-36.5; Units: g/dl; Status: F Test: RED CELL DISTRIBUTION WIDTH; Value: 13.4; Range: 11.5-14.5; Units: %; Status: F Test: PLATELET COUNT, AUTOMATED; Value: 184; Range: 150-450; Units: k/mm3; Status: F Test: NEUTROPHILS %; Value: 69.8; Range: 36.0-66.0; Abnormal: Above high normal; Units: %; Status: F Test: LYMPH %; Value: 17.8; Range: 24.0-44.0; Abnormal: Below low normal; Units: %; Status: F Test: MONO %; Value: 6.5; Range: 0.0-5.0; Abnormal: Above high normal; Units: %; Status: F Test: EOS %; Value: 2.4; Range: 0.0-3.0; Units: %; Status: F Test: BASO %; Value: 1.3; Range: 0.0-1.0; Abnormal: Above high normal; Units: %; Status: F Test: LARGE UNSTAINED CELL %; Value: 2.2; Range: 0.0-4.0; Units: %; Status: F Test: NEUTROPHILS #; Value: 6.6; Range: 1.8-7.7; Units: K/mm3; Status: F Test: LYMPH #; Value: 1.9; Range: 1.5-4.5; Units: K/mm3; Status: F Test: MONO #; Value: 0.6; Range: 0.0-0.8; Units: K/mm3; Status: F Test: EOS #; Value: 0.2; Range: 0.0-0.50; Units: K/mm3; Status: F Test: BASO #; Value: 0.1; Range: 0.0-0.2; Units: K/mm3; Status: F Test: LARGE UNSTAINED CELL #; Value: 0.2; Range: 0.0-0.4; Units: K/mm3; Status: F Lab Order: [facility] Profile; [facility]'M 02/21/16 13:12 Test: GLUCOSE, FASTING; Value: 128; Range: 70-105; Abnormal: Above high normal; Units: MG/DL; Status: F Test: BLOOD UREA NITROGEN; Value: 21; Range: 7-18; Abnormal: Above high normal; Units: MG/DL; Status: F Test: CREATININE FOR GFR; Value: 1.28; Range: 0.70-1.30; Units: MG/DL; Status: F Test: GLOMERULAR FILTRATION RATE; Value: > 60.0; Range: >60; Status: F Test: SODIUM LEVEL; Value: 143; Range: 136-145; Units: MEQ/L; Status: F Test: POTASSIUM SERUM; Value: 3.6; Range: 3.5-5.1; Units: MEQ/L; Status: F Test: CHLORIDE LEVEL; Value: 108; Range: 98-107; Abnormal: Above high normal; Units: MEQ/L; Status: F Test: CARBON DIOXIDE LEVEL; Value: 25; Range: 21-32; Units: MEQ/L; Status: F Test: ANION GAP; Value: 10; Range: 8-16; Units: MEQ/L; Status: F Test: CALCIUM LEVEL; Value: 8.7; Range: 8.5-10.1; Units: MG/DL; Status: F Test Note: ; Units are mL/min/1.73 m2 Chronic Kidney Disease Staging per NKF: Stage I & II GFR >=60 Normal to Mildly Decreased Stage III GFR 30-59 Moderately Decreased Stage IV GFR 15-29 Severely Decreased Stage V GFR <15 Very Little GFR Left ESRD GFR <15 on DIRECTOR OF BLOOD Lab Order: CIP; SPEC' 02/21/16 13:12 Test: CPK CREATINE PHOSPHOKINASE; Value: 172; Range: 39-308; Units: U/L; Status: F Test: CK-MB VALUE MASS; Value: 1.3; Range: 0.0-3.6; Units: NG/ML; Status: F Test: MB/CK RELATIVE INDEX; Value: 0.75; Range: < OR =4; Status: F Test Note: ; DIAGNOSIS CRITERIA MMB ng/ml Relative Index (RI) NON-AMI < or = 5 N/A SAL ZONE > 5 < or = 4 AMI > 5 > 4 Lab Order: Troponin; SPEC' 02/21/16 13:12 Test: TROPONIN I; Value: < 0.02; Range: < 0.10; Units: NG/ML; Status: F Test Note: ; Troponin I Reference Interval for [place] LOCI: 99th Percentile= 0.00-0.045 ng/ml Risk Stratification: <= 0.10 ng/ml Decreased Risk for Adverse Clinical Events. 0.10-1.50 ng/ml Increased Risk for Adverse Clinical Events. Evaluation of additional criterion and/or repeat testing in 2-6 hours is suggested to rule out myocardial damage. >= 1.50 ng/ml Indicative of Myocardial Injury. Lab Order: PT/INR; SPEC' 02/21/16 13:12 Test: PROTHROMBIN TIME; Value: 12.9; Range: 12.3-14.5; Units: SECONDS; Status: F Test: INR; Value: 0.96; Status: F Test Note: ; THERAPUTIC HUMAN INR VALUES INDICATIONS NORMAL RANGES PROPHYLAXIS/TREATMENT OF: VENOUS THROMBOSIS 2.0-3.0 PULMONARY EMBOLISM 2.0-3.0 PREVENTION OF SYSTEMIC EMBOLISM FROM: TISSUE HEART VALVES 2.0-3.0 ACUTE MYOCARDIAL INFARCTION 2.0-3.0 VALVULAR HEART DISEASE 2.0-3.0 ATRIAL FIBRILLATION 2.0-3.0 MECHANICAL VALVES(HIGH RISK) 2.5-3.5 RECURRENT MYOCARDIAL INFARCTION 2.5-3.5 Lab Order: PTT; [facility]' 02/21/16 13:12 Test: PARTIAL THROMBOPLASTIN TIME; Value: 41.4; Range: 26.6-37.1; Abnormal: Above high normal; Units: SECONDS; Status: F Lab Order: Liver Profile; [facility]' 02/21/16 13:12 Test: AST/SGOT; Value: 19; Range: 15-37; Units: U/L; Status: F Test: ALT/SGPT; Value: 36; Range: 12-78; Units: U/L; Status: F Test: ALKALINE PHOSPHATASE; Value: 77; Range: 45-117; Units: U/L; Status: F Test: BILIRUBIN,TOTAL; Value: 0.5; Range: 0.2-1.0; Units: MG/DL; Status: F Test: BILIRUBIN,DIRECT; Value: 0.2; Range: 0.0-0.2; Units: MG/DL; Status: F Test: TOTAL PROTEIN; Value: 6.9; Range: 6.4-8.2; Units: GM/DL; Status: F Test: ALBUMIN; Value: 4.4; Range: 3.2-5.2; Units: GM/DL; Status: F Test: ALBUMIN/GLOBULIN RATIO; Value: 1.76; Range: 1.00-1.93; Status: F Lab Order: CARDIAC MARKER PANEL; [facility] 02/21/16 17:15 Test: CPK CREATINE PHOSPHOKINASE; Value: 180; Range: 39-308; Units: U/L; Status: F Test: CK-MB VALUE MASS; Value: 5.5; Range: 0.0-3.6; Abnormal: Above high normal; Units: NG/ML; Status: F Test: MB/CK RELATIVE INDEX; Value: 3.05; Range: < OR =4; Status: F Test: TROPONIN I; Value: 0.96; Range: < 0.10; Abnormal: High; Units: NG/ML; Status: F Test Note: ; DIAGNOSIS CRITERIA MMB ng/ml Relative Index (RI) NON-AMI < or = 5 N/A SAL ZONE > 5 < or = 4 AMI > 5 > 4 Radiology Order: EKG-ADULT Test: EKG-ADULT REASON FOR EXAMINATION: Chest Pain; Stationary ECG Study; [facility] ED; ; Test Date: 2016-02-21; Pat Name: SCAR STOKES Department:; Room: -; 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 Lungs are well inflated; and clear. Heart size is normal. 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; : 1970 Requested By: Robert Roth; Order Number: [id number] Reading MD: Eric Gonzalez; Measurements; Intervals [place]; Rate: 53 P: 39; MN: 148 QRS: 20; QRSD: 88 T: 13; QT: 454; QTc: 428; Interpretive Statements; SINUS BRADYCARDIA; ; Electronically Signed On 02-21-2016 23:05:49 EST by Eric Gonzalez; Radiology Order: CT Chest Angio R/O PE Test: CT Chest Angio R/O PE REASON FOR EXAMINATION: Chest Pain; CT pulmonary angiogram: With IV contrast.; ; History: Chest pain.; ; Comparison studies: November 20, 2013.; ; Contrast dose: 75 cc's of Isovue 370 are administered intravenously.; ; CT technique: Helical scanning is acquired and overlapping 1.5 mm and contiguous; 3 mm axial images are reformatted. In addition, a 3-D work station is deployed; to generate thick slab maximum intensity projection images in sagittal and; coronal imaging projections.; ; CT pulmonary angiographic findings: There is good opacification of the pulmonary; arterial tree. There is no CT evidence of pulmonary embolism. Thoracic aorta; enhances homogeneously and is normal in caliber and contour. There is no; evidence of pleural or pericardial effusion. No hilar or mediastinal mass or; adenopathy is appreciated. No extrathoracic mass or adenopathy is seen. No; adrenal lesion is observed. The visualized upper abdominal structures are; unremarkable. No infiltrate, atelectasis or mass lesion is seen in the lung; natarajan. Bone window settings show no evidence of fracture or bony destructive; lesion.; ; Impression:; ; Negative CT pulmonary angiogram. No CT evidence of pulmonary embolism.; ; ; Signed by; Khanh Rizo MD 02/21/2016 05:35 P; Outcome: 18:28 ER care complete, transfer ordered by Provider. ml 18:36 CT Study completed. Admission hand-off: Report called to Teena Mejia RN at [facility]. ld5 18:53 Discharge Assessment: Patient awake, alert and oriented x 3. No cognitive and/or ld5 functional deficits noted. Patient verbalized understanding of disposition instructions. patient administered narcotics - yes. Patient was admitted to the hospital or transferred to another facility. Transferred to [facility]. by EMS ground [place] ambulance report to accompanying personnel Miles Faith. Condition: stable. Property :Personal belongings accompany Pt. 19:02 Patient left the ED. ld5 Signatures: Dispatcher [employer] [facility] Robert Roth MD MD ml Scott, Debra, RN RN dls Alyce Moraes, Fernanda Winslow RN RN ld5 Maria Elena Payne, INSULATION MECHANIC INSULATION MECHANIC ct3 [place],MAT Cerda RN js13 Gi Byers, INSULATION MECHANIC INSULATION MECHANIC elp Thelma Mora, Kierra dm19 Lola Hyde RN pml Chart Complete MTDD
--- NOTE | 2016-02-24 11:33 | EDDOCDS ---
Physician Documentation [facility] Name: Scar Dinh Age: 45 yrs Sex: Male : 1970 Arrival Date: 02/21/2016 Time: 12:49 Bed 19 Private MD: Fernanda Chaney E Disposition: 02/20 18:28 Critical Care:. ml Disposition: 02/21/16 18:28 Transfer ordered to [facility]. Diagnosis is Non-ST elevation (NSTEMI) myocardial infarction. - Reason for transfer: Higher level of care. - Accepting physician is dr mortensen. - Condition is Stable. - Problem is new. - Symptoms have improved. Historical: - Allergies: Codeine Sulfate (Anaphylaxis); - Home Meds: 1. Celexa 20 mg Oral tab 1 tab once daily 2. clonazepam 1 mg Oral tab 1 tab daily 3. multivitamin Oral tab 1 tab daily 4. Tricor 145 mg Oral tab 1 tab once daily - PMHx: Anxiety; Chronic Low Back Pain; Hypercholesterolemia; PTSD; - PSHx: Tonsillectomy; Hernia repair- Left inguinal; Hernia repair- Right inguinal; Arthroscopy, Knee- Right; repair right fifth finger; - Social history: Smoking status: Patient uses tobacco products, heavy tobacco smoker. No barriers to communication noted, The patient speaks fluent Mexican. - Family history: Pertinent for heart disease. - : The pt / caregiver states he / she is not on anticoagulants. Home medication list is obtained from the patient. - Exposure Risk Screening:: None identified. Vital Signs: 12:51 BP 169 / 108; Pulse 73; Resp 16; Pulse Ox 98% ; elp 13:22 BP 150 / 84 (auto/); ld5 13:22 Pulse 80 MON; Pulse Ox 97% ; ld5 13:34 BP 143 / 80 (auto/); ld5 13:35 Pulse 70 MON; Pulse Ox 97% ; ld5 13:47 Temp 97.6(O); Weight 97.52 kg / 214.99 lbs (R); Height 72 in. (182.88 cm) (R); ct3 13:58 BP 149 / 84; Pulse 69; ld5 14:03 Pulse 68 MON; Pulse Ox 95% ; ld5 14:04 BP 138 / 80 (auto/); ld5 14:19 BP 129 / 82 (auto/); ld5 14:19 Pulse 64 MON; Pulse Ox 96% ; ld5 14:34 BP 132 / 81 (auto/); ld5 14:37 Pulse 70 MON; Pulse Ox 96% ; ld5 14:49 BP 138 / 82 (auto/); ld5 14:50 Pulse 76 MON; Pulse Ox 95% ; ld5 15:19 BP 114 / 74 (auto/); ld5 15:19 Pulse 56 MON; Pulse Ox 96% ; ld5 15:34 BP 134 / 86 (auto/); ld5 15:34 Pulse 60 MON; Pulse Ox 96% ; ld5 15:49 BP 138 / 85 (auto/); ld5 15:49 Pulse 58 MON; Pulse Ox 94% ; ld5 16:04 BP 130 / 83 (auto/); ld5 16:04 Pulse 58 MON; Resp 16; Pulse Ox 94% ; Pain 0/10; ld5 16:49 BP 126 / 75 (auto/); ld5 16:49 Pulse 58 MON; Pulse Ox 95% ; ld5 17:04 BP 119 / 75 (auto/); ld5 17:05 Pulse 58 MON; Pulse Ox 96% ; ld5 18:04 BP 128 / 83 (auto/); ld5 18:04 Pulse 58 MON; Resp 16; Temp 96.4(O); Pulse Ox 95% ; Pain 0/10; ld5 18:43 BP 164 / 102 (auto/); ld5 18:43 Pulse 64 MON; Pulse Ox 97% ; ld5 18:49 BP 166 / 104 (auto/); ld5 18:49 Pulse 64 MON; Pulse Ox 97% ; ld5 18:53 BP 167 / 102 (auto/); ld5 18:53 Pulse 64 MON; Pulse Ox 97% ; ld5 19:02 BP 161 / 101; Pulse 61; Resp 16; Temp 96.6; Pulse Ox 98% on R/A; Pain 0/10; ld5 13:47 Body Mass Index 29.16 (97.52 kg, 182.88 cm) ct3 MDM: 12:55 ECG WITH READING ER PHYS+CARDIAG ordered. EDMS 13:27 IV Saline Lock ordered. ml 13:27 Emergency Department Clinician/Pulse Ox/q 15 min VS ordered. ml 13:27 Rhythm Strip to chart ordered. ml 13:27 Aspirin Chewable Tablet 243 mg PO once ordered. ml 13:27 Nitrostat 0.4 mg Sublingual every 5 minutes; hold if SBP<90mmHg.Document Pain Score ml Response to Each Dose x3 ordered. 13:27 morphine 2 mg IVP once ordered. ml 13:27 Ondansetron 4 mg IVP once ordered. ml 13:28 NS 0.9% 1000 ml IV at bolus once ordered. ml 13:28 Oral Temp ordered. ml 13:28 CBC with Diff Ordered. EDMS 13:28 MED Profile Ordered. EDMS 13:28 CIP Ordered. EDMS 13:29 Troponin Ordered. EDMS 13:29 PT/INR Ordered. EDMS 13:29 PTT Ordered. EDMS 13:29 Chest, 1 View Ordered. EDMS 13:29 Liver Profile Ordered. EDMS 13:52 CBC with Diff Reviewed. ml 13:52 MED Profile Reviewed. ml 13:52 PTT Reviewed. ml 13:52 CIP Reviewed. ml 13:52 Troponin Reviewed. ml 13:52 PT/INR Reviewed. ml 13:52 Liver Profile Reviewed. ml 13:53 Misc. Nursing Order ordered. ml 13:54 Repeat EKG (put time details section) ordered. ml 13:54 Redraw CIP &Troponin (put time in details section) ordered. ml 13:57 Redraw CIP &Troponin (put time in details section) complete. ar3 13:57 Repeat EKG (put time details section) complete. ar3 13:58 ECG WITH READING ER PHYS ordered. EDMS 13:58 CARDIAC MARKER PANEL Ordered. EDMS 14:17 Redraw CIP &Troponin (put time in details section) ordered. ml 14:17 Repeat EKG (put time details section) ordered. ml 14:18 [facility] Payment Agreement was scanned into [employer] and attached to record. dm19 14:18 Financial registration complete. dm19 14:18 CT Chest Angio R/O PE Ordered. EDMS 14:25 Repeat EKG (put time details section) complete. ar3 14:25 Redraw CIP &Troponin (put time in details section) complete. ar3 14:26 ECG WITH READING ER PHYS ordered. EDMS 18:03 CARDIAC MARKER PANEL Reviewed. ml 18:03 Chest, 1 View Reviewed. ml 18:03 CT Chest Angio R/O PE Reviewed. ml 18:06 Plavix - Clopidogrel 600 mg PO once ordered. ml 18:07 Enoxaparin (1mg/kg) 100 mg Sub-Q once; Ensure no Heparin in past 6hrs. Ensure any ml baseline labs are drawn. ordered. 18:44 Nitro-Bid Ointment 2 % 0.5 inches Transdermal once ordered. ml 18:51 NS 0.9% 1000 ml IV at 100 mL/hr continuous ordered. ld5 19:00 LORazepam 1 mg IVP once ordered. ld5 20:40 T-Sheet-- Draft Copy was scanned into [employer] and attached to record. klr 02/21 09:15 ECG/EKG was scanned into [employer] and attached to record. gb Administered Medications: 02/20 13:15 Drug: NS 0.9% 1000 ml [sodium chloride 0.9 % intravenous solution] Route: IV; Rate: ld5 bolus; Site: right antecubital; 15:03 Follow up: IV Status: Completed infusion; IV Intake: 1000ml ld5 13:20 Drug: Nitrostat 0.4 mg [Nitrostat 0.4 mg sublingual tablet (1 tabs)] Route: Sublingual; ld5 13:58 Follow up: BP 149 / 84; Pulse 69 bpm ld5 13:27 Drug: Aspirin 243 mg [aspirin 81 mg chewable tablet (3 tabs)] Route: PO; ld5 13:29 Drug: Ondansetron 4 mg [ondansetron HCl 2 mg/mL intravenous solution (2 mL)] Route: ld5 IVP; Site: right antecubital; 13:35 Drug: morphine 2 mg [morphine 2 mg/mL intravenous cartridge (1 mL)] Route: IVP; Site: ld5 right antecubital; 14:05 Follow up: Response: Pain is decreased; see vital record. Pain of 0.5/10 ld5 14:00 Drug: Nitrostat 0.4 mg [Nitrostat 0.4 mg sublingual tablet (1 tabs)] {Note: given by ld5 Dr. Sal.} Route: Sublingual; 14:18 Follow up: pt reports jaw pain has resolved but continues with some intermittent chest ld5 pressure. 3rd nitro held per Dr. Sal 18:22 Drug: Plavix - Clopidogrel 600 mg [clopidogrel 75 mg tablet (8 tabs)] {Note: 2 300 mg ld5 tablets.} Route: PO; 18:22 Drug: Enoxaparin (1mg/kg) 100 mg [enoxaparin 100 mg/mL subcutaneous syringe (1 mL)] ld5 {Co-Signature: pml (Lola Hyde RN).} Route: Sub-Q; Site: left lower abdomen; 18:51 Drug: Nitro-Bid 0.5 inches [Nitro-Bid 2 % transdermal ointment (0.5 inches)] Route: ld5 Transdermal; Site: anterior chest wall; 18:51 Drug: NS 0.9% 1000 ml [sodium chloride 0.9 % intravenous solution] Route: IV; Rate: 100 ld5 mL/hr; Site: right antecubital; 18:51 Follow up: IV Status: Infusion continued on transport ld5 19:00 Drug: LORazepam 1 mg [lorazepam 2 mg/mL injection solution (0.5 mL)] Route: IVP; Site: ld5 right antecubital; Critical Care Time: 18:28 Critical care time: Bedside Care: 120 minutes, Consultation: 20 minutes. Total time: ml 140 minutes Signatures: Dispatcher [employer] EDMS Robert Roth MD MD ml Alyce Moraes, Reg Reg gb Dhruv, Stefany, EQUIPMENT MECHANIC SPECIALIST EQUIPMENT MECHANIC SPECIALIST ar3 Fernanda DavidRN RN ld5 Zaida Toure RN RN [id number] Thelma Mora Diane [id number] Lola grimes The chart was reviewed and I authenticate all verbal orders and agree with the evaluation and treatment provided.Corrections: (The following items were deleted from the chart) 14: 14:17 Repeat EKG (put time details section) ordered. ar3 14:22 14:17 Redraw CIP &Troponin (put time in details section) ordered. ar3 19:00 14:25 CARDIAC MARKER PANEL ordered. EDID EDMS Attachments: 14:18 [facility] Payment Agreement dm19 20:40 T-Sheet-- Draft Copy r 02/21 09:15 ECG/EKG gb Chart Complete MTDD
--- NOTE | 2016-02-24 11:33 | EDDOCDS ---
Physician Documentation [facility] Name: Scar Dinh Age: 45 yrs Sex: Male : 1970 Arrival Date: 02/21/2016 Time: 12:49 Bed 19 Private MD: Fernanda Chaney E Disposition: 02/20 18:28 Critical Care:. ml Disposition: 02/21/16 18:28 Transfer ordered to [facility]. Diagnosis is Non-ST elevation (NSTEMI) myocardial infarction. - Reason for transfer: Higher level of care. - Accepting physician is dr mortensen. - Condition is Stable. - Problem is new. - Symptoms have improved. Historical: - Allergies: Codeine Sulfate (Anaphylaxis); - Home Meds: 1. Celexa 20 mg Oral tab 1 tab once daily 2. clonazepam 1 mg Oral tab 1 tab daily 3. multivitamin Oral tab 1 tab daily 4. Tricor 145 mg Oral tab 1 tab once daily - PMHx: Anxiety; Chronic Low Back Pain; Hypercholesterolemia; PTSD; - PSHx: Tonsillectomy; Hernia repair- Left inguinal; Hernia repair- Right inguinal; Arthroscopy, Knee- Right; repair right fifth finger; - Social history: Smoking status: Patient uses tobacco products, heavy tobacco smoker. No barriers to communication noted, The patient speaks fluent [place]. - Family history: Pertinent for heart disease. - : The pt / caregiver states he / she is not on anticoagulants. Home medication list is obtained from the patient. - Exposure Risk Screening:: None identified. Vital Signs: 12:51 BP 169 / 108; Pulse 73; Resp 16; Pulse Ox 98% ; elp 13:22 BP 150 / 84 (auto/); ld5 13:22 Pulse 80 MON; Pulse Ox 97% ; ld5 13:34 BP 143 / 80 (auto/); ld5 13:35 Pulse 70 MON; Pulse Ox 97% ; ld5 13:47 Temp 97.6(O); Weight 97.52 kg / 214.99 lbs (R); Height 72 in. (182.88 cm) (R); ct3 13:58 BP 149 / 84; Pulse 69; ld5 14:03 Pulse 68 MON; Pulse Ox 95% ; ld5 14:04 BP 138 / 80 (auto/); ld5 14:19 BP 129 / 82 (auto/); ld5 14:19 Pulse 64 MON; Pulse Ox 96% ; ld5 14:34 BP 132 / 81 (auto/); ld5 14:37 Pulse 70 MON; Pulse Ox 96% ; ld5 14:49 BP 138 / 82 (auto/); ld5 14:50 Pulse 76 MON; Pulse Ox 95% ; ld5 15:19 BP 114 / 74 (auto/); ld5 15:19 Pulse 56 MON; Pulse Ox 96% ; ld5 15:34 BP 134 / 86 (auto/); ld5 15:34 Pulse 60 MON; Pulse Ox 96% ; ld5 15:49 BP 138 / 85 (auto/); ld5 15:49 Pulse 58 MON; Pulse Ox 94% ; ld5 16:04 BP 130 / 83 (auto/); ld5 16:04 Pulse 58 MON; Resp 16; Pulse Ox 94% ; Pain 0/10; ld5 16:49 BP 126 / 75 (auto/); ld5 16:49 Pulse 58 MON; Pulse Ox 95% ; ld5 17:04 BP 119 / 75 (auto/); ld5 17:05 Pulse 58 MON; Pulse Ox 96% ; ld5 18:04 BP 128 / 83 (auto/); ld5 18:04 Pulse 58 MON; Resp 16; Temp 96.4(O); Pulse Ox 95% ; Pain 0/10; ld5 18:43 BP 164 / 102 (auto/); ld5 18:43 Pulse 64 MON; Pulse Ox 97% ; ld5 18:49 BP 166 / 104 (auto/); ld5 18:49 Pulse 64 MON; Pulse Ox 97% ; ld5 18:53 BP 167 / 102 (auto/); ld5 18:53 Pulse 64 MON; Pulse Ox 97% ; ld5 19:02 BP 161 / 101; Pulse 61; Resp 16; Temp 96.6; Pulse Ox 98% on R/A; Pain 0/10; ld5 13:47 Body Mass Index 29.16 (97.52 kg, 182.88 cm) ct3 MDM: 12:55 ECG WITH READING ER PHYS+CARDIAG ordered. EDMS 13:27 IV Saline Lock ordered. ml 13:27 Die Casting Machine Operator/Pulse Ox/q 15 min VS ordered. ml 13:27 Rhythm Strip to chart ordered. ml 13:27 Aspirin Chewable Tablet 243 mg PO once ordered. ml 13:27 Nitrostat 0.4 mg Sublingual every 5 minutes; hold if SBP<90mmHg.Document Pain Score ml Response to Each Dose x3 ordered. 13:27 morphine 2 mg IVP once ordered. ml 13:27 Ondansetron 4 mg IVP once ordered. ml 13:28 NS 0.9% 1000 ml IV at bolus once ordered. ml 13:28 Oral Temp ordered. ml 13:28 CBC with Diff Ordered. EDMS 13:28 MED Profile Ordered. EDMS 13:28 CIP Ordered. EDMS 13:29 Troponin Ordered. EDMS 13:29 PT/INR Ordered. EDMS 13:29 PTT Ordered. EDMS 13:29 Chest, 1 View Ordered. EDMS 13:29 Liver Profile Ordered. EDMS 13:52 CBC with Diff Reviewed. ml 13:52 MED Profile Reviewed. ml 13:52 PTT Reviewed. ml 13:52 CIP Reviewed. ml 13:52 Troponin Reviewed. ml 13:52 PT/INR Reviewed. ml 13:52 Liver Profile Reviewed. ml 13:53 Misc. Nursing Order ordered. ml 13:54 Repeat EKG (put time details section) ordered. ml 13:54 Redraw CIP &Troponin (put time in details section) ordered. ml 13:57 Redraw CIP &Troponin (put time in details section) complete. ar3 13:57 Repeat EKG (put time details section) complete. ar3 13:58 ECG WITH READING ER PHYS ordered. EDMS 13:58 CARDIAC MARKER PANEL Ordered. EDMS 14:17 Redraw CIP &Troponin (put time in details section) ordered. ml 14:17 Repeat EKG (put time details section) ordered. ml 14:18 [facility] Payment Agreement was scanned into [employer] and attached to record. dm19 14:18 Financial registration complete. dm19 14:18 CT Chest Angio R/O PE Ordered. EDMS 14:25 Repeat EKG (put time details section) complete. ar3 14:25 Redraw CIP &Troponin (put time in details section) complete. ar3 14:26 ECG WITH READING ER PHYS ordered. EDMS 18:03 CARDIAC MARKER PANEL Reviewed. ml 18:03 Chest, 1 View Reviewed. ml 18:03 CT Chest Angio R/O PE Reviewed. ml 18:06 Plavix - Clopidogrel 600 mg PO once ordered. ml 18:07 Enoxaparin (1mg/kg) 100 mg Sub-Q once; Ensure no Heparin in past 6hrs. Ensure any ml baseline labs are drawn. ordered. 18:44 Nitro-Bid Ointment 2 % 0.5 inches Transdermal once ordered. ml 18:51 NS 0.9% 1000 ml IV at 100 mL/hr continuous ordered. ld5 19:00 LORazepam 1 mg IVP once ordered. ld5 20:40 T-Sheet-- Draft Copy was scanned into [employer] and attached to record. klr 02/21 09:15 ECG/EKG was scanned into [employer] and attached to record. gb Administered Medications: 02/20 13:15 Drug: NS 0.9% 1000 ml [sodium chloride 0.9 % intravenous solution] Route: IV; Rate: ld5 bolus; Site: right antecubital; 15:03 Follow up: IV Status: Completed infusion; IV Intake: 1000ml ld5 13:20 Drug: Nitrostat 0.4 mg [Nitrostat 0.4 mg sublingual tablet (1 tabs)] Route: Sublingual; ld5 13:58 Follow up: BP 149 / 84; Pulse 69 bpm ld5 13:27 Drug: Aspirin 243 mg [aspirin 81 mg chewable tablet (3 tabs)] Route: PO; ld5 13:29 Drug: Ondansetron 4 mg [ondansetron HCl 2 mg/mL intravenous solution (2 mL)] Route: ld5 IVP; Site: right antecubital; 13:35 Drug: morphine 2 mg [morphine 2 mg/mL intravenous cartridge (1 mL)] Route: IVP; Site: ld5 right antecubital; 14:05 Follow up: Response: Pain is decreased; see vital record. Pain of 0.5/10 ld5 14:00 Drug: Nitrostat 0.4 mg [Nitrostat 0.4 mg sublingual tablet (1 tabs)] {Note: given by ld5 Dr. Sal.} Route: Sublingual; 14:18 Follow up: pt reports jaw pain has resolved but continues with some intermittent chest ld5 pressure. 3rd nitro held per Dr. Sal 18:22 Drug: Plavix - Clopidogrel 600 mg [clopidogrel 75 mg tablet (8 tabs)] {Note: 2 300 mg ld5 tablets.} Route: PO; 18:22 Drug: Enoxaparin (1mg/kg) 100 mg [enoxaparin 100 mg/mL subcutaneous syringe (1 mL)] ld5 {Co-Signature: pml (Lola Hyde RN).} Route: Sub-Q; Site: left lower abdomen; 18:51 Drug: Nitro-Bid 0.5 inches [Nitro-Bid 2 % transdermal ointment (0.5 inches)] Route: ld5 Transdermal; Site: anterior chest wall; 18:51 Drug: NS 0.9% 1000 ml [sodium chloride 0.9 % intravenous solution] Route: IV; Rate: 100 ld5 mL/hr; Site: right antecubital; 18:51 Follow up: IV Status: Infusion continued on transport ld5 19:00 Drug: LORazepam 1 mg [lorazepam 2 mg/mL injection solution (0.5 mL)] Route: IVP; Site: ld5 right antecubital; Critical Care Time: 18:28 Critical care time: Bedside Care: 120 minutes, Consultation: 20 minutes. Total time: ml 140 minutes Signatures: Dispatcher [employer] EDMS Robert Roth MD MD ml Alyce Moraes, Reg Reg gb Dhruv, Stefany, CASTING MOLDER CASTING MOLDER ar3 Fernanda DavidRN RN ld5 Zaida Toure RN RN [id number] Thelma Mora Diane [id number] Lola grimes The chart was reviewed and I authenticate all verbal orders and agree with the evaluation and treatment provided.Corrections: (The following items were deleted from the chart) 14: 14:17 Repeat EKG (put time details section) ordered. ar3 14:22 14:17 Redraw CIP &Troponin (put time in details section) ordered. ar3 19:00 14:25 CARDIAC MARKER PANEL ordered. EDCA EDMS Attachments: 14:18 [facility] Payment Agreement dm19 20:40 T-Sheet-- Draft Copy r 02/21 09:15 ECG/EKG gb Chart Complete MTDD
== END 2016-02-21 19:02 | disposition short-term general hospital (02) ==
LOC: M ED 12:49
DX: I21.4 Non-ST elevation (NSTEMI) myocardial infarction (principal); E78.5 Hyperlipidemia, unspecified; M54.5 Low back pain; G89.29 Other chronic pain; F41.9 Anxiety disorder, unspecified; F43.10 Post-traumatic stress disorder, unspecified; Z79.899 Other long term (current) drug therapy; Z88.2 Allergy status to sulfonamides; Z88.5 Allergy status to narcotic agent; F17.210 Nicotine dependence, cigarettes, uncomplicated
CPT/HCPCS: 36415; 71010; 71275; 80048; 80076; 82550; 82553; 85025; 85610; 85730; 93005; 93041; 96361; 96372; 96374; 96375; 99285; J1650; J2060; J2405; Q9967

== ENCOUNTER 2016-03-15 14:19 | Outpatient (RCR) | payer OTHER | END 2016-03-16 | LOC: M CR 14:19 | PROVIDERS: ATTEND Internal Medicine Cardiovascular Disease | DX: Z51.89 Encounter for other specified aftercare (principal); Z98.61 Coronary angioplasty status ==

== ENCOUNTER 2016-04-09 08:54 | Outpatient (RCR) | payer OTHER | END 2016-04-13 | LOC: M CR 08:54 | PROVIDERS: ATTEND Internal Medicine Cardiovascular Disease | DX: Z51.89 Encounter for other specified aftercare (principal); Z98.61 Coronary angioplasty status ==

== ENCOUNTER 2016-04-30 19:37 | Emergency (ER) | payer OTHER ==
[~2016-04-30] VITALS: Ht 188 cm; Wt 99.8 kg
[2016-04-30 20:15] LABS: BASO # 0.1 K/mm3 (0.0-0.2); BASO % 0.9 % (0.0-1.0); EOS # 0.3 K/mm3 (0.0-0.50); EOS % 3.8 % (0.0-3.0); LARGE UNSTAINED CELL # 0.2 K/mm3 (0.0-0.4); LARGE UNSTAINED CELL % 2.2 % (0.0-4.0); LYMPH % 29.5 % (24.0-44.0); MEAN CORPUSCULAR HEMOGLOBIN 30.9 pg (27.0-33.0); MEAN CORPUSCULAR HGB CONC 35.7 g/dl (32.0-36.5); MEAN CORPUSCULAR VOLUME 86.5 fl (80.0-96.0); MONO # 0.6 K/mm3 (0.0-0.8); NEUTROPHILS # 3.7 K/mm3 (1.8-7.7); NEUTROPHILS % 54.6 % (36.0-66.0); PLATELET COUNT, AUTOMATED 197 k/mm3 (150-450); WHITE BLOOD COUNT 6.8 K/mm3 (4.0-10.0)
[2016-04-30 20:36] LABS: ANION GAP 8 MEQ/L (8-16); BLOOD UREA NITROGEN 14 MG/DL (7-18); CALCIUM LEVEL 8.6 MG/DL (8.5-10.1); CARBON DIOXIDE LEVEL 30 MEQ/L (21-32); CHLORIDE LEVEL 104 MEQ/L (98-107); CREATININE FOR GFR 1.34 MG/DL (0.70-1.30); GLOMERULAR FILTRATION RATE > 60.0 (>60); GLUCOSE, FASTING 146 MG/DL (70-105); SODIUM LEVEL 142 MEQ/L (136-145)
[2016-04-30] MEDS ORDERED: ASPIRIN 325 MG TAB PO ONE (21:15)
[2016-04-30] MEDS ORDERED: METOCLOPRAMIDE INJ 10MG/2ML VIAL (J2765) IV ONE (21:30)
[2016-04-30] MEDS ORDERED: NS 1,000 ML IV ONE (21:30)
[2016-04-30 22:19] LABS: ALBUMIN 3.9 GM/DL (3.2-5.2); ALKALINE PHOSPHATASE 110 U/L (45-117); AMYLASE 46 U/L (25-115); AST/SGOT 45 U/L (15-37); BILIRUBIN,DIRECT 0.1 MG/DL (0.0-0.2); BILIRUBIN,TOTAL 0.7 MG/DL (0.2-1.0)
[2016-04-30 22:47] LABS: ALBUMIN/GLOBULIN RATIO 1.34 (1.00-1.93); ALT/SGPT 75 U/L (12-78); TOTAL PROTEIN 6.8 GM/DL (6.4-8.2)
[2016-05-01] MEDS ORDERED: ISOVUE-370 76% 100ML VIAL (Q9967) As Ordered ONE (00:30)
--- NOTE | 2016-05-01 02:10 | REPUSA ---
CLINICAL HISTORY: Dyspnea, exclude PE. TECHNIQUE: Multiple incremental axial, coronal and oblique images are obtained from the thoracic inle t to the upper abdomen. Intravenous contrast material was administered as per pulmonary embolism prot ocol. COMMENTS: Comparison is made to the prior exam performed on 02/21/2016. There is excellent opacification of pulmonary arterial system without evidence for pulmonary embolism . Aorta is of normal caliber without evidence for dissection or aneurysm. There is no evidence of pleural or parenchymal mass. There are no pleural effusions. There is no evid ence of hilar or mediastinal lymphadenopathy. The heart and great vessels are within normal limits. Images of the upper abdomen demonstrate no evidence of adrenal mass. The bony structures are free of lytic or blastic lesions. Bilateral basilar atelectatic pulmonary coty nges with mild associated groundglass densities. IMPRESSION: No evidence for pulmonary embolism. Bilateral basilar atelectatic pulmonary changes with mild associated groundglass densities. Please evaluate to exclude a superimposed infection. Thank you for your kind referral of this patient.
[2016-05-01 03:06] VITALS: BP 123/86
--- NOTE | 2016-05-01 09:34 | REP ---
Sitting portable chest x-ray: Single view. History: Chest pain. Comparison chest x-ray February 21, 2016. Findings: EKG monitoring electrodes overlie the chest. The lungs are well inflated and clear. Pleural angles are sharp. Heart size is normal. No significant bony abnormality. Impression: No active disease. Signed by Khanh Rizo MD 05/01/2016 09:39 A
--- NOTE | 2016-05-01 19:54 | ECGEPIP ---
Stationary ECG Study [facility] - ED Test Date: 2016-04-30 Pat Name: JOHANN STOKES Department: Room: - Gender: M Clerk Supervisor: pieter : 1970 Requested By: OMARI CID Order Number: [id number] Reading MD: Zaira Austin Measurements Intervals [place] Rate: 60 P: 58 MS: 150 QRS: 38 QRSD: 91 T: 24 QT: 432 QTc: 433 Interpretive Statements SINUS RHYTHM SIMILAR 02/21/16 Electronically Signed On 05-01-2016 19:53:51 EDT by Zaira Austin
--- NOTE | 2016-05-01 19:56 | ECGEPIP ---
Stationary ECG Study [facility] - ED Test Date: 2016-05-01 Pat Name: JOHANN STOKES Department: Room: - Gender: M Spanish Literature Professor: pieter : 1970 Requested By: OMARI CID Order Number: [id number] Reading MD: Zaira Austin Measurements Intervals [place] Rate: 59 P: 63 RI: 155 QRS: 30 QRSD: 94 T: 20 QT: 459 QTc: 456 Interpretive Statements SINUS BRADYCARDIA PROLONGED QTC COMPARED 04/30/16 Electronically Signed On 05-01-2016 19:56:30 EDT by Zaira Austin
== END 2016-05-01 03:09 | disposition home or self-care (01) ==
LOC: M ED 20:11
DX: R11.0 Nausea (principal); R07.9 Chest pain, unspecified
CPT/HCPCS: 36415; 71010; 71275; 80048; 80076; 82150; 82550; 82553; 83690; 85025; 93005; 93041; 94760; 96361; 96374; 99285; J2765; Q9967

== ENCOUNTER 2016-05-12 12:51 | Outpatient (RCR) | payer OTHER | END 2016-05-14 | LOC: M CR 12:51 | PROVIDERS: ATTEND Internal Medicine Cardiovascular Disease | DX: Z51.89 Encounter for other specified aftercare (principal); Z98.61 Coronary angioplasty status ==

== ENCOUNTER → 2016-05-12 | Outpatient (REF) | payer OTHER | LOC: M LAB REF 12:29 | PROVIDERS: ATTEND Internal Medicine | DX: N17.9 Acute kidney failure, unspecified (principal); G25.81 Restless legs syndrome; R53.83 Other fatigue ==

== ENCOUNTER 2016-05-31 08:08 | Outpatient (RCR) | payer OTHER | END 2016-06-13 | LOC: M CR 08:08 | PROVIDERS: ATTEND Internal Medicine Cardiovascular Disease | DX: Z51.89 Encounter for other specified aftercare (principal); Z98.61 Coronary angioplasty status ==

== ENCOUNTER 2016-06-14 13:17 | Outpatient (RCR) | payer SELFPAY | END 2016-07-14 | LOC: M CR 13:17 | PROVIDERS: ATTEND Internal Medicine Cardiovascular Disease | DX: Z71.89 Other specified counseling (principal) ==

== ENCOUNTER → 2016-07-07 | Outpatient (CLI) | payer OTHER, SELFPAY ==
--- NOTE | 2016-07-08 12:40 | SLEEPCENT ---
DATE OF PROCEDURE: 07/07/2016 REQUESTING PROVIDER: Ramona Lopez NP INTERPRETATION: Nocturnal polysomnography was performed for evaluation of sleep apnea syndrome symptoms in this patient with a history of excessive somnolence and nonrestorative sleep. 6 hours and 3 minutes of data were reviewed. There were 296 minutes of sleep identified. Sleep latency was normal at 10 minutes. Rapid eye movement (REM) latency was normal at 69 minutes. Sleep architecture showed some fragmentation late in the study. Overall sleep efficiency was 83.5%. Electrocardiogram (EKG) showed a sinus rhythm with an average heart rate of 50 beats per minute. Electroencephalogram (EEG) showed normal waveforms for awake and sleep. There were 19 respiratory events identified of 10 seconds in duration or greater for an apnea-hypopnea index within normal limits at 3.8. The events identified were seen only in the supine posture. Arousals from respiratory events, when arousals from snoring were included, occurred only 1.2 times per hour with minimal activity. Limb movement arousal index was 3.4. Oxygen saturations remained 90% plus throughout the study. IMPRESSION: Normal nocturnal polysomnography with snoring.
== END ==
LOC: M SLEEP 19:27
PROVIDERS: ATTEND Nurse Practitioner Adult Health
DX: G47.30 Sleep apnea, unspecified (principal)

== ENCOUNTER → 2016-07-16 | Outpatient (REF) | LOC: M LAB 10:02 | PROVIDERS: ATTEND Nurse Practitioner Adult Health | DX: Z02.89 Encounter for other administrative examinations (principal) ==

== ENCOUNTER → 2017-04-17 | Outpatient (REF) | payer OTHER ==
[2017-04-17 21:50] LABS: APPEARANCE, URINE HAZY (CLEAR); BACTERIA, URINE AUTO NEGATIVE (NEGATIVE); BILIRUBIN, URINE AUTO NEGATIVE (NEGATIVE); BLOOD, URINE BLOOD 3+ (NEGATIVE); COLOR, URINE YELLOW (YELLOW); GLUCOSE, URINE (UA) AUTO NEGATIVE (NEGATIVE); KETONE, URINE AUTO NEGATIVE (NEGATIVE); LEUKOCYTE ESTERASE, URINE AUTO NEGATIVE (NEGATIVE); MUCUS, URINE SMALL (NEGATIVE); NITRITE, URINE AUTO NEGATIVE (NEGATIVE); PROTEIN, URINE AUTO NEGATIVE (NEGATIVE); RBC, URINE AUTO TNTC /HPF (0-3); SPECIFIC GRAVITY URINE AUTO 1.012 (1.002-1.035); SQUAMOUS EPITHELIAL CELL UR AU 0 /HPF (0-6); UROBILINOGEN, URINE AUTO 0.2 mg/dL (0.0-2.0); WBC, URINE AUTO 2 /HPF (0-3)
== END ==
LOC: M LAB REF 09:23
DX: N39.0 Urinary tract infection, site not specified (principal)
CPT/HCPCS: 81001

== ENCOUNTER 2017-08-20 20:16 | Inpatient (IN) | payer OTHER ==
[2017-08-20] MEDS: NS 1,000 ML IV (20:57)
[2017-08-20 21:00] LABS: BASO # 0.1 10^3/uL (0.0-0.2); BASO % 0.5 % (0.0-1.0); EOS # 0.3 10^3/uL (0.0-0.50); EOS % 1.7 % (0.0-3.0); HEMATOCRIT 39.2 % (42.0-52.0); HEMOGLOBIN 13.3 g/dl (13.5-17.5); IMMATURE GRANULOCYTE % 0.3 % (0-3.0); LYMPH # 1.8 10^3/uL (1.5-4.5); LYMPH % 12.3 % (24.0-44.0); MEAN CORPUSCULAR HEMOGLOBIN 29.4 pg (27.0-33.0); MEAN CORPUSCULAR HGB CONC 33.9 g/dl (32.0-36.5); MEAN CORPUSCULAR VOLUME 86.5 fl (80.0-96.0); MONO % 14.8 % (0.0-5.0); NEUTROPHILS # 10.1 10^3/uL (1.8-7.7); NEUTROPHILS % 70.4 % (36.0-66.0); PLATELET COUNT, AUTOMATED 299 10^3/uL (150-450); RED BLOOD COUNT 4.53 10^6/uL (4.30-6.10); RED CELL DISTRIBUTION WIDTH 12.4 % (11.5-14.5); WHITE BLOOD COUNT 14.4 10^3/uL (4.0-10.0)
[2017-08-20] MEDS ORDERED: clonazePAM 1 MG TAB PO (21:00)
[2017-08-20] MEDS: HYDROMORPHONE HCL 0.5 MG/ 0.5 ML SYRINGE (J1170 PER 1) IV ×2 (21:08→22:11)
[2017-08-20 21:31] LABS: LACTIC ACID SEPSIS PROTOCOL 0.8 MMOL/L (0.4-2.0)
[2017-08-20 21:36] LABS: MONO # 2.1 10^3/uL (0.0-0.8); POSITIVE DIFF POS FLAG
[2017-08-20 21:37] LABS: ALBUMIN 3.3 GM/DL (3.2-5.2); ALKALINE PHOSPHATASE 170 U/L (45-117); ALT/SGPT 38 U/L (12-78); ANION GAP 6 MEQ/L (8-16); AST/SGOT 28 U/L (7-37); BILIRUBIN,DIRECT 0.2 MG/DL (0.0-0.2); BILIRUBIN,TOTAL 0.5 MG/DL (0.2-1.0); BLOOD UREA NITROGEN 19 MG/DL (7-18); CALCIUM LEVEL 8.7 MG/DL (8.5-10.1); CARBON DIOXIDE LEVEL 29 MEQ/L (21-32); CHLORIDE LEVEL 103 MEQ/L (98-107); GLOMERULAR FILTRATION RATE 57.3 (>60); GLUCOSE, FASTING 101 MG/DL (70-100); LIPASE 176 U/L (73-393); POTASSIUM SERUM 3.3 MEQ/L (3.5-5.1); SODIUM LEVEL 138 MEQ/L (136-145); TOTAL PROTEIN 7.4 GM/DL (6.4-8.2)
[2017-08-20] MEDS ORDERED: ISOVUE-370 76% 100ML VIAL (Q9967) As Ordered (21:38)
[2017-08-20] MEDS: PIPERACILLIN/TAZOBACTAM SOD 3.375 GM in D5W MINI-BAG PLUS 50 ML IV (23:06)
[2017-08-21] MEDS: HYDROMORPHONE HCL 0.5 MG/ 0.5 ML SYRINGE (J1170 PER 1) IV ×5 (00:10→21:16)
[2017-08-21] MEDS ORDERED: MONTELUKAST 10 MG TAB PO (00:30)
[2017-08-21] MEDS ORDERED: ACETAMINOPHEN 325 MG TAB PO (00:30)
[2017-08-21] MEDS ORDERED: fentaNYL 100 MCG/2 ML INJECTION (J3010) IV (00:45)
[2017-08-21] MEDS: FENOFIBRATE 145 MG TAB (TRICOR) PO ×2 (02:54→20:55)
[2017-08-21] MEDS: CitaloPRAM (CeleXA) 20 MG TAB PO ×2 (02:54→22:14)
[2017-08-21] MEDS: valACYclovir HCL 500 MG TAB PO ×2 (02:54→20:56)
[2017-08-21] MEDS: NS 1,000 ML IV (02:56)
[2017-08-21] MEDS: clonazePAM 0.5 MG TAB PO ×2 (02:56→20:55)
[2017-08-21 06:48] LABS: HEMATOCRIT 40.8 % (42.0-52.0); HEMOGLOBIN 13.6 g/dl (13.5-17.5); MEAN CORPUSCULAR HEMOGLOBIN 28.9 pg (27.0-33.0); MEAN CORPUSCULAR HGB CONC 33.3 g/dl (32.0-36.5); MEAN CORPUSCULAR VOLUME 86.8 fl (80.0-96.0); PLATELET COUNT, AUTOMATED 277 10^3/uL (150-450); RED CELL DISTRIBUTION WIDTH 12.4 % (11.5-14.5); WHITE BLOOD COUNT 16.3 10^3/uL (4.0-10.0)
[2017-08-21 07:06] LABS: ANION GAP 6 MEQ/L (8-16); BLOOD UREA NITROGEN 15 MG/DL (7-18); CALCIUM LEVEL 8.3 MG/DL (8.5-10.1); CARBON DIOXIDE LEVEL 31 MEQ/L (21-32); CHLORIDE LEVEL 104 MEQ/L (98-107); CREATININE FOR GFR 1.18 MG/DL (0.70-1.30); GLOMERULAR FILTRATION RATE > 60.0 (>60); GLUCOSE, FASTING 101 MG/DL (70-100); POTASSIUM SERUM 3.9 MEQ/L (3.5-5.1); SODIUM LEVEL 141 MEQ/L (136-145)
[2017-08-21] MEDS ORDERED: PIPERACILLIN/TAZOBACTAM SOD 2.25 GM in D5W MINI-BAG PLUS 50 ML IV (07:30)
[2017-08-21] MEDS: KCL 20MEQ IN D5/0.45NS 1000ML 1,000 ML IV ×2 (09:12→18:02)
[2017-08-21] MEDS: PIPERACILLIN/TAZOBACTAM SOD 3.375 GM in D5W MINI-BAG PLUS 50 ML IV ×3 (09:13→20:56)
[2017-08-21] MEDS: OMEPRAZOLE 20 MG CAP PO (09:13)
[2017-08-21] MEDS: ASPIRIN 81 MG ENTERIC TAB PO (09:13)
[2017-08-21] MEDS: HEPARIN SOD (PORCINE) 5000 UNITS/ML VIAL SQ ×2 (09:14→20:56)
[2017-08-21] MEDS: PERCOCET 5MG/325MG TAB PO (18:03)
[2017-08-21] MEDS ORDERED: PIPERACILLIN/TAZOBACTAM SOD 3.375 GM in D5W MINI-BAG PLUS 50 ML IV (23:00)
[2017-08-22] MEDS: KCL 20MEQ IN D5/0.45NS 1000ML 1,000 ML IV ×4 (01:43→18:09)
[2017-08-22] MEDS: PIPERACILLIN/TAZOBACTAM SOD 3.375 GM in D5W MINI-BAG PLUS 50 ML IV ×4 (02:50→20:58)
[2017-08-22] MEDS: HYDROMORPHONE HCL 0.5 MG/ 0.5 ML SYRINGE (J1170 PER 1) IV ×6 (02:50→20:41)
[2017-08-22 07:08] LABS: HEMATOCRIT 39.9 % (42.0-52.0); HEMOGLOBIN 12.8 g/dl (13.5-17.5); MEAN CORPUSCULAR HEMOGLOBIN 28.8 pg (27.0-33.0); MEAN CORPUSCULAR HGB CONC 32.1 g/dl (32.0-36.5); MEAN CORPUSCULAR VOLUME 89.9 fl (80.0-96.0); PLATELET COUNT, AUTOMATED 296 10^3/uL (150-450); RED BLOOD COUNT 4.44 10^6/uL (4.30-6.10); RED CELL DISTRIBUTION WIDTH 12.5 % (11.5-14.5); WHITE BLOOD COUNT 11.7 10^3/uL (4.0-10.0)
[2017-08-22 07:28] LABS: ALBUMIN 2.7 GM/DL (3.2-5.2); ALBUMIN/GLOBULIN RATIO 0.66 (1.00-1.93); ALKALINE PHOSPHATASE 138 U/L (45-117); ALT/SGPT 25 U/L (12-78); ANION GAP 5 MEQ/L (8-16); AST/SGOT 12 U/L (7-37); BILIRUBIN,TOTAL 0.5 MG/DL (0.2-1.0); BLOOD UREA NITROGEN 11 MG/DL (7-18); CALCIUM LEVEL 8.5 MG/DL (8.5-10.1); CARBON DIOXIDE LEVEL 31 MEQ/L (21-32); CHLORIDE LEVEL 106 MEQ/L (98-107); CREATININE FOR GFR 1.06 MG/DL (0.70-1.30); GLOMERULAR FILTRATION RATE > 60.0 (>60); GLUCOSE, FASTING 126 MG/DL (70-100); MAGNESIUM LEVEL 2.2 MG/DL (1.8-2.4); SODIUM LEVEL 142 MEQ/L (136-145); TOTAL PROTEIN 6.8 GM/DL (6.4-8.2)
[2017-08-22] MEDS: HEPARIN SOD (PORCINE) 5000 UNITS/ML VIAL SQ ×2 (09:00→21:36)
[2017-08-22] MEDS: ASPIRIN 81 MG ENTERIC TAB PO (09:24)
[2017-08-22] MEDS: OMEPRAZOLE 20 MG CAP PO (09:24)
[2017-08-22] MEDS: clonazePAM 0.5 MG TAB PO (21:36)
[2017-08-22] MEDS: FENOFIBRATE 145 MG TAB (TRICOR) PO (21:36)
[2017-08-22] MEDS: CitaloPRAM (CeleXA) 20 MG TAB PO (21:36)
[2017-08-22] MEDS: valACYclovir HCL 500 MG TAB PO (21:36)
[2017-08-23] MEDS: KCL 20MEQ IN D5/0.45NS 1000ML 1,000 ML IV ×2 (03:00→14:38)
[2017-08-23] MEDS: PIPERACILLIN/TAZOBACTAM SOD 3.375 GM in D5W MINI-BAG PLUS 50 ML IV ×4 (03:00→20:19)
[2017-08-23 06:55] LABS: BASO # 0.1 10^3/uL (0.0-0.2); BASO % 0.7 % (0.0-1.0); EOS # 0.3 10^3/uL (0.0-0.50); HEMOGLOBIN 13.1 g/dl (13.5-17.5); IMMATURE GRANULOCYTE % 0.6 % (0-3.0); LYMPH % 10.2 % (24.0-44.0); MEAN CORPUSCULAR HEMOGLOBIN 28.9 pg (27.0-33.0); MEAN CORPUSCULAR HGB CONC 32.8 g/dl (32.0-36.5); MEAN CORPUSCULAR VOLUME 88.3 fl (80.0-96.0); MONO % 10.2 % (0.0-5.0); NEUTROPHILS # 7.5 10^3/uL (1.8-7.7); NEUTROPHILS % 75.3 % (36.0-66.0); PLATELET COUNT, AUTOMATED 317 10^3/uL (150-450); RED BLOOD COUNT 4.53 10^6/uL (4.30-6.10); RED CELL DISTRIBUTION WIDTH 12.2 % (11.5-14.5)
[2017-08-23 07:17] LABS: ALBUMIN 2.8 GM/DL (3.2-5.2); ALBUMIN/GLOBULIN RATIO 0.67 (1.00-1.93); ALKALINE PHOSPHATASE 135 U/L (45-117); ALT/SGPT 22 U/L (12-78); ANION GAP 5 MEQ/L (8-16); AST/SGOT 12 U/L (7-37); BILIRUBIN,TOTAL 0.4 MG/DL (0.2-1.0); BLOOD UREA NITROGEN 9 MG/DL (7-18); CALCIUM LEVEL 8.8 MG/DL (8.5-10.1); CARBON DIOXIDE LEVEL 29 MEQ/L (21-32); CHLORIDE LEVEL 108 MEQ/L (98-107); CREATININE FOR GFR 1.17 MG/DL (0.70-1.30); GLOMERULAR FILTRATION RATE > 60.0 (>60); GLUCOSE, FASTING 121 MG/DL (70-100); MAGNESIUM LEVEL 2.1 MG/DL (1.8-2.4); POTASSIUM SERUM 4.3 MEQ/L (3.5-5.1); SODIUM LEVEL 142 MEQ/L (136-145)
[2017-08-23] MEDS: HYDROMORPHONE HCL 0.5 MG/ 0.5 ML SYRINGE (J1170 PER 1) IV ×5 (08:13→20:27)
[2017-08-23] MEDS: HEPARIN SOD (PORCINE) 5000 UNITS/ML VIAL SQ ×2 (08:56→20:19)
[2017-08-23] MEDS: OMEPRAZOLE 20 MG CAP PO (08:56)
[2017-08-23] MEDS: ASPIRIN 81 MG ENTERIC TAB PO (08:56)
[2017-08-23] MEDS: PERCOCET 5MG/325MG TAB PO (13:40)
[2017-08-23] MEDS: valACYclovir HCL 500 MG TAB PO (20:18)
[2017-08-23] MEDS: CitaloPRAM (CeleXA) 20 MG TAB PO (20:18)
[2017-08-23] MEDS: FENOFIBRATE 145 MG TAB (TRICOR) PO (20:18)
[2017-08-23] MEDS: clonazePAM 0.5 MG TAB PO (20:19)
[2017-08-24] MEDS: HYDROMORPHONE HCL 0.5 MG/ 0.5 ML SYRINGE (J1170 PER 1) IV ×3 (00:43→15:19)
[2017-08-24] MEDS: PIPERACILLIN/TAZOBACTAM SOD 3.375 GM in D5W MINI-BAG PLUS 50 ML IV ×4 (03:00→20:51)
[2017-08-24 07:34] LABS: HEMATOCRIT 38.5 % (42.0-52.0); HEMOGLOBIN 12.7 g/dl (13.5-17.5); MEAN CORPUSCULAR HEMOGLOBIN 28.7 pg (27.0-33.0); MEAN CORPUSCULAR VOLUME 86.9 fl (80.0-96.0); PLATELET COUNT, AUTOMATED 328 10^3/uL (150-450); RED BLOOD COUNT 4.43 10^6/uL (4.30-6.10); RED CELL DISTRIBUTION WIDTH 12.3 % (11.5-14.5); WHITE BLOOD COUNT 7.2 10^3/uL (4.0-10.0)
[2017-08-24 07:44] LABS: ALBUMIN 2.8 GM/DL (3.2-5.2); ALKALINE PHOSPHATASE 113 U/L (45-117); ALT/SGPT 20 U/L (12-78); ANION GAP 6 MEQ/L (8-16); AST/SGOT 12 U/L (7-37); BILIRUBIN,TOTAL 0.4 MG/DL (0.2-1.0); BLOOD UREA NITROGEN 10 MG/DL (7-18); CALCIUM LEVEL 8.9 MG/DL (8.5-10.1); CARBON DIOXIDE LEVEL 28 MEQ/L (21-32); CHLORIDE LEVEL 109 MEQ/L (98-107); CREATININE FOR GFR 1.13 MG/DL (0.70-1.30); GLOMERULAR FILTRATION RATE > 60.0 (>60); GLUCOSE, FASTING 104 MG/DL (70-100); MAGNESIUM LEVEL 2.1 MG/DL (1.8-2.4); POTASSIUM SERUM 4.4 MEQ/L (3.5-5.1); SODIUM LEVEL 143 MEQ/L (136-145); TOTAL PROTEIN 6.8 GM/DL (6.4-8.2)
[2017-08-24] MEDS: OMEPRAZOLE 20 MG CAP PO (08:23)
[2017-08-24] MEDS: ASPIRIN 81 MG ENTERIC TAB PO (08:23)
[2017-08-24] MEDS: HEPARIN SOD (PORCINE) 5000 UNITS/ML VIAL SQ ×2 (08:23→20:51)
[2017-08-24] MEDS: PERCOCET 5MG/325MG TAB PO ×2 (12:19→20:10)
[2017-08-24] MEDS: KCL 20MEQ IN D5/0.45NS 1000ML 1,000 ML IV (14:06)
[2017-08-24] MEDS: clonazePAM 0.5 MG TAB PO (20:51)
[2017-08-24] MEDS: CitaloPRAM (CeleXA) 20 MG TAB PO (20:52)
[2017-08-24] MEDS: valACYclovir HCL 500 MG TAB PO (20:52)
[2017-08-24] MEDS: FENOFIBRATE 145 MG TAB (TRICOR) PO (20:52)
[2017-08-25] MEDS: KCL 20MEQ IN D5/0.45NS 1000ML 1,000 ML IV (02:37)
[2017-08-25] MEDS: PIPERACILLIN/TAZOBACTAM SOD 3.375 GM in D5W MINI-BAG PLUS 50 ML IV ×4 (02:37→20:10)
[2017-08-25] MEDS: GASTROGRAFIN SOLUTION 30ML PO ×2 (07:02→08:00)
[2017-08-25 07:34] LABS: HEMATOCRIT 43.4 % (42.0-52.0); HEMOGLOBIN 14.1 g/dl (13.5-17.5); MEAN CORPUSCULAR HGB CONC 32.5 g/dl (32.0-36.5); MEAN CORPUSCULAR VOLUME 89.3 fl (80.0-96.0); PLATELET COUNT, AUTOMATED 356 10^3/uL (150-450); RED BLOOD COUNT 4.86 10^6/uL (4.30-6.10); RED CELL DISTRIBUTION WIDTH 12.2 % (11.5-14.5); WHITE BLOOD COUNT 6.5 10^3/uL (4.0-10.0)
[2017-08-25 08:01] LABS: ALBUMIN 2.9 GM/DL (3.2-5.2); ALBUMIN/GLOBULIN RATIO 0.69 (1.00-1.93); ALKALINE PHOSPHATASE 108 U/L (45-117); ALT/SGPT 25 U/L (12-78); ANION GAP 6 MEQ/L (8-16); AST/SGOT 21 U/L (7-37); BILIRUBIN,TOTAL 0.4 MG/DL (0.2-1.0); BLOOD UREA NITROGEN 9 MG/DL (7-18); CALCIUM LEVEL 9.5 MG/DL (8.5-10.1); CARBON DIOXIDE LEVEL 28 MEQ/L (21-32); CHLORIDE LEVEL 112 MEQ/L (98-107); CREATININE FOR GFR 1.23 MG/DL (0.70-1.30); GLOMERULAR FILTRATION RATE > 60.0 (>60); GLUCOSE, FASTING 99 MG/DL (70-100); MAGNESIUM LEVEL 2.3 MG/DL (1.8-2.4); POTASSIUM SERUM 4.7 MEQ/L (3.5-5.1); SODIUM LEVEL 146 MEQ/L (136-145); TOTAL PROTEIN 7.1 GM/DL (6.4-8.2)
[2017-08-25] MEDS: HEPARIN SOD (PORCINE) 5000 UNITS/ML VIAL SQ ×2 (08:22→21:13)
[2017-08-25] MEDS: OMEPRAZOLE 20 MG CAP PO (08:22)
[2017-08-25] MEDS: ASPIRIN 81 MG ENTERIC TAB PO (08:22)
[2017-08-25] MEDS: PERCOCET 5MG/325MG TAB PO ×3 (08:24→20:13)
[2017-08-25] MEDS ORDERED: HYDROMORPHONE HCL 0.5 MG/ 0.5 ML SYRINGE (J1170 PER 1) IV (08:30)
[2017-08-25] MEDS ORDERED: ISOVUE-370 76% 100ML VIAL (Q9967) As Ordered (08:46)
[2017-08-25] MEDS: D5W/0.45% SODIUM CHLORIDE 1,000 ML IV (11:43)
[2017-08-25] MEDS: valACYclovir HCL 500 MG TAB PO (21:14)
[2017-08-25] MEDS: FENOFIBRATE 145 MG TAB (TRICOR) PO (21:14)
[2017-08-25] MEDS: CitaloPRAM (CeleXA) 20 MG TAB PO (21:14)
[2017-08-25] MEDS: clonazePAM 0.5 MG TAB PO (21:17)
[2017-08-26] MEDS: PIPERACILLIN/TAZOBACTAM SOD 3.375 GM in D5W MINI-BAG PLUS 50 ML IV ×4 (02:21→20:17)
[2017-08-26 07:47] LABS: HEMATOCRIT 43.6 % (42.0-52.0); HEMOGLOBIN 14.4 g/dl (13.5-17.5); MEAN CORPUSCULAR HEMOGLOBIN 28.9 pg (27.0-33.0); MEAN CORPUSCULAR VOLUME 87.4 fl (80.0-96.0); PLATELET COUNT, AUTOMATED 384 10^3/uL (150-450); RED BLOOD COUNT 4.99 10^6/uL (4.30-6.10); RED CELL DISTRIBUTION WIDTH 12.4 % (11.5-14.5); WHITE BLOOD COUNT 6.7 10^3/uL (4.0-10.0)
[2017-08-26] MEDS: OMEPRAZOLE 20 MG CAP PO (08:10)
[2017-08-26] MEDS: ASPIRIN 81 MG ENTERIC TAB PO (08:10)
[2017-08-26] MEDS: HEPARIN SOD (PORCINE) 5000 UNITS/ML VIAL SQ ×2 (08:11→20:17)
[2017-08-26 08:22] LABS: ALBUMIN/GLOBULIN RATIO 0.73 (1.00-1.93); ALKALINE PHOSPHATASE 100 U/L (45-117); ALT/SGPT 35 U/L (12-78); ANION GAP 9 MEQ/L (8-16); AST/SGOT 35 U/L (7-37); BILIRUBIN,TOTAL 0.3 MG/DL (0.2-1.0); BLOOD UREA NITROGEN 11 MG/DL (7-18); CARBON DIOXIDE LEVEL 26 MEQ/L (21-32); CHLORIDE LEVEL 111 MEQ/L (98-107); GLOMERULAR FILTRATION RATE 57.3 (>60); GLUCOSE, FASTING 94 MG/DL (70-100); MAGNESIUM LEVEL 2.1 MG/DL (1.8-2.4); SODIUM LEVEL 146 MEQ/L (136-145); TOTAL PROTEIN 7.1 GM/DL (6.4-8.2)
[2017-08-26] MEDS: PERCOCET 5MG/325MG TAB PO (10:34)
[2017-08-26] MEDS: valACYclovir HCL 500 MG TAB PO (20:18)
[2017-08-26] MEDS: FENOFIBRATE 145 MG TAB (TRICOR) PO (20:18)
[2017-08-26] MEDS: CitaloPRAM (CeleXA) 20 MG TAB PO (20:18)
[2017-08-26] MEDS: clonazePAM 0.5 MG TAB PO (20:18)
[2017-08-27] MEDS: PIPERACILLIN/TAZOBACTAM SOD 3.375 GM in D5W MINI-BAG PLUS 50 ML IV ×4 (02:09→20:31)
[2017-08-27 07:13] LABS: HEMATOCRIT 44.1 % (42.0-52.0); HEMOGLOBIN 14.5 g/dl (13.5-17.5); MEAN CORPUSCULAR HGB CONC 32.9 g/dl (32.0-36.5); MEAN CORPUSCULAR VOLUME 88.2 fl (80.0-96.0); PLATELET COUNT, AUTOMATED 367 10^3/uL (150-450); RED CELL DISTRIBUTION WIDTH 12.4 % (11.5-14.5); WHITE BLOOD COUNT 7.8 10^3/uL (4.0-10.0)
[2017-08-27 07:39] LABS: ALBUMIN/GLOBULIN RATIO 0.73 (1.00-1.93); ALKALINE PHOSPHATASE 106 U/L (45-117); ALT/SGPT 42 U/L (12-78); ANION GAP 10 MEQ/L (8-16); AST/SGOT 35 U/L (7-37); BILIRUBIN,TOTAL 0.3 MG/DL (0.2-1.0); BLOOD UREA NITROGEN 14 MG/DL (7-18); CALCIUM LEVEL 8.6 MG/DL (8.5-10.1); CARBON DIOXIDE LEVEL 24 MEQ/L (21-32); CHLORIDE LEVEL 112 MEQ/L (98-107); CREATININE FOR GFR 1.41 MG/DL (0.70-1.30); GLOMERULAR FILTRATION RATE 56.9 (>60); GLUCOSE, FASTING 136 MG/DL (70-100); POTASSIUM SERUM 3.9 MEQ/L (3.5-5.1); SODIUM LEVEL 146 MEQ/L (136-145); TOTAL PROTEIN 7.1 GM/DL (6.4-8.2)
[2017-08-27] MEDS: OMEPRAZOLE 20 MG CAP PO (08:21)
[2017-08-27] MEDS: ASPIRIN 81 MG ENTERIC TAB PO (08:21)
[2017-08-27] MEDS: HEPARIN SOD (PORCINE) 5000 UNITS/ML VIAL SQ ×2 (08:22→20:33)
[2017-08-27 13:46] LABS: KETONE, URINE AUTO RFX NEGATIVE (NEGATIVE); LEUKOCYTE ESTERASE UR AUTO RFX NEGATIVE (NEGATIVE); NITRITE, URINE AUTO RFX NEGATIVE (NEGATIVE); RBC, URINE AUTO RFX 0 /HPF (0-3); SPECIFIC GRAVITY UR AUTO RFX 1.009 (1.002-1.035); SQUAM EPITHELIAL CELL UR AURFX 0 /HPF (0-6); WBC, URINE AUTO RFX 0 /HPF (0-3)
[2017-08-27] MEDS: FENOFIBRATE 145 MG TAB (TRICOR) PO (20:32)
[2017-08-27] MEDS: valACYclovir HCL 500 MG TAB PO (20:32)
[2017-08-27] MEDS: CitaloPRAM (CeleXA) 20 MG TAB PO (20:32)
[2017-08-27] MEDS: clonazePAM 0.5 MG TAB PO (20:32)
[2017-08-28] MEDS: PIPERACILLIN/TAZOBACTAM SOD 3.375 GM in D5W MINI-BAG PLUS 50 ML IV ×4 (02:13→20:35)
[2017-08-28 06:51] LABS: HEMATOCRIT 46.7 % (42.0-52.0); HEMOGLOBIN 15.3 g/dl (13.5-17.5); MEAN CORPUSCULAR HEMOGLOBIN 28.7 pg (27.0-33.0); MEAN CORPUSCULAR HGB CONC 32.8 g/dl (32.0-36.5); MEAN CORPUSCULAR VOLUME 87.6 fl (80.0-96.0); PLATELET COUNT, AUTOMATED 365 10^3/uL (150-450); RED BLOOD COUNT 5.33 10^6/uL (4.30-6.10); RED CELL DISTRIBUTION WIDTH 12.4 % (11.5-14.5); WHITE BLOOD COUNT 7.6 10^3/uL (4.0-10.0)
[2017-08-28 07:12] LABS: ALBUMIN 3.4 GM/DL (3.2-5.2); ALBUMIN/GLOBULIN RATIO 0.94 (1.00-1.93); ALKALINE PHOSPHATASE 96 U/L (45-117); ALT/SGPT 45 U/L (12-78); ANION GAP 9 MEQ/L (8-16); AST/SGOT 30 U/L (7-37); BILIRUBIN,TOTAL 0.3 MG/DL (0.2-1.0); BLOOD UREA NITROGEN 16 MG/DL (7-18); CALCIUM LEVEL 8.9 MG/DL (8.5-10.1); CARBON DIOXIDE LEVEL 26 MEQ/L (21-32); CHLORIDE LEVEL 112 MEQ/L (98-107); GLOMERULAR FILTRATION RATE 57.3 (>60); GLUCOSE, FASTING 106 MG/DL (70-100); MAGNESIUM LEVEL 2.1 MG/DL (1.8-2.4); POTASSIUM SERUM 4.3 MEQ/L (3.5-5.1); SODIUM LEVEL 147 MEQ/L (136-145)
[2017-08-28] MEDS: HEPARIN SOD (PORCINE) 5000 UNITS/ML VIAL SQ ×2 (08:59→20:35)
[2017-08-28] MEDS: ASPIRIN 81 MG ENTERIC TAB PO (09:00)
[2017-08-28] MEDS: OMEPRAZOLE 20 MG CAP PO (09:00)
[2017-08-28] MEDS: clonazePAM 0.5 MG TAB PO (20:36)
[2017-08-28] MEDS: FENOFIBRATE 145 MG TAB (TRICOR) PO (20:36)
[2017-08-28] MEDS: valACYclovir HCL 500 MG TAB PO (20:36)
[2017-08-28] MEDS: CitaloPRAM (CeleXA) 20 MG TAB PO (20:36)
[2017-08-29] MEDS: PIPERACILLIN/TAZOBACTAM SOD 3.375 GM in D5W MINI-BAG PLUS 50 ML IV ×2 (02:47→08:51)
[2017-08-29] MEDS: ASPIRIN 81 MG ENTERIC TAB PO (08:51)
[2017-08-29] MEDS: OMEPRAZOLE 20 MG CAP PO (08:51)
== END 2017-08-29 10:27 | disposition home or self-care (01) | DRG 392 ==
LOC: M ED INP 08-21 00:16 → M PED 08-21 02:21 → M ED 20:16
DX: K57.20 Diverticulitis of large intestine with perforation and abscess without bleeding (principal); N17.9 Acute kidney failure, unspecified; G43.909 Migraine, unspecified, not intractable, without status migrainosus; E78.5 Hyperlipidemia, unspecified; F17.210 Nicotine dependence, cigarettes, uncomplicated; F32.9 Major depressive disorder, single episode, unspecified; F43.10 Post-traumatic stress disorder, unspecified; I25.10 Atherosclerotic heart disease of native coronary artery without angina pectoris; B00.9 Herpesviral infection, unspecified; Z98.61 Coronary angioplasty status; Z79.82 Long term (current) use of aspirin; Z79.899 Other long term (current) drug therapy; I25.2 Old myocardial infarction; Z88.5 Allergy status to narcotic agent

== ENCOUNTER → 2017-10-20 | Outpatient (CLI) | payer OTHER ==
[2017-10-20 09:37] LABS: BASO # 0.1 10^3/uL (0.0-0.2); BASO % 1.4 % (0.0-1.0); EOS # 0.2 10^3/uL (0.0-0.50); EOS % 3.9 % (0.0-3.0); HEMATOCRIT 48.1 % (42.0-52.0); HEMOGLOBIN 16.1 g/dl (13.5-17.5); IMMATURE GRANULOCYTE % 0.5 % (0-3.0); LYMPH # 1.4 10^3/uL (1.5-4.5); MEAN CORPUSCULAR HEMOGLOBIN 29.2 pg (27.0-33.0); MEAN CORPUSCULAR HGB CONC 33.5 g/dl (32.0-36.5); MEAN CORPUSCULAR VOLUME 87.3 fl (80.0-96.0); MONO # 0.6 10^3/uL (0.0-0.8); MONO % 10.7 % (0.0-5.0); NEUTROPHILS # 3.3 10^3/uL (1.8-7.7); NEUTROPHILS % 58.5 % (36.0-66.0); PLATELET COUNT, AUTOMATED 202 10^3/uL (150-450); RED BLOOD COUNT 5.51 10^6/uL (4.30-6.10); RED CELL DISTRIBUTION WIDTH 13.9 % (11.5-14.5); WHITE BLOOD COUNT 5.6 10^3/uL (4.0-10.0)
[2017-10-20 09:54] LABS: ESTIMATED AVERAGE GLUCOSE 126 MG/DL (60-110)
[2017-10-20 10:27] LABS: ALBUMIN 4.1 GM/DL (3.2-5.2); ALBUMIN/GLOBULIN RATIO 1.32 (1.00-1.93); ALKALINE PHOSPHATASE 81 U/L (45-117); ALT/SGPT 68 U/L (12-78); ANION GAP 8 MEQ/L (8-16); AST/SGOT 41 U/L (7-37); BILIRUBIN,TOTAL 0.8 MG/DL (0.2-1.0); BLOOD UREA NITROGEN 14 MG/DL (7-18); CALCIUM LEVEL 9.1 MG/DL (8.5-10.1); CARBON DIOXIDE LEVEL 28 MEQ/L (21-32); CHLORIDE LEVEL 107 MEQ/L (98-107); CHOLESTEROL LEVEL 155 MG/DL (<200); CHOLESTEROL RISK RATIO 4.558 (<5); CREATININE FOR GFR 1.07 MG/DL (0.70-1.30); GLOMERULAR FILTRATION RATE > 60.0 (>60); GLUCOSE, FASTING 118 MG/DL (70-100); HDL CHOLESTEROL 34 MG/DL (>40); LDL CHOLESTEROL 70.2 MG/DL (<100); NON-HDL-C 121 MG/DL; POTASSIUM SERUM 4.4 MEQ/L (3.5-5.1); SODIUM LEVEL 143 MEQ/L (136-145); TOTAL PROTEIN 7.2 GM/DL (6.4-8.2); TRIGLYCERIDES LEVEL 254 MG/DL (<150)
[2017-10-22 14:10] LABS: PSA TOTAL 0.9 ng/mL (0.0-4.0)
== END ==
LOC: M LAB 08:09
DX: R73.01 Impaired fasting glucose (principal); E78.2 Mixed hyperlipidemia; I25.10 Atherosclerotic heart disease of native coronary artery without angina pectoris; Z12.5 Encounter for screening for malignant neoplasm of prostate
CPT/HCPCS: 80053

== ENCOUNTER 2017-12-06 07:37 | Day surgery (SDC) | payer OTHER ==
[~2017-12-06 07:37] MED LIST: LIDOCAINE 2% INJ 100 MG/5 ML SDV (FOR ANES.) As Ordered; PROPOFOL 200 MG/20 ML VIAL As Ordered
[2017-12-06] MEDS: NS 1,000 ML IV (08:22)
== END 2017-12-06 09:56 | disposition home or self-care (01) ==
LOC: M OPP 07:37
DX: K57.92 Diverticulitis of intestine, part unspecified, without perforation or abscess without bleeding (principal); K62.1 Rectal polyp; K57.30 Diverticulosis of large intestine without perforation or abscess without bleeding; Z95.5 Presence of coronary angioplasty implant and graft; I25.10 Atherosclerotic heart disease of native coronary artery without angina pectoris; I25.2 Old myocardial infarction; E78.5 Hyperlipidemia, unspecified; M19.90 Unspecified osteoarthritis, unspecified site; K21.9 Gastro-esophageal reflux disease without esophagitis; M54.2 Cervicalgia; M54.89 Other dorsalgia; L30.9 Dermatitis, unspecified; F41.9 Anxiety disorder, unspecified; F32.9 Major depressive disorder, single episode, unspecified; F43.10 Post-traumatic stress disorder, unspecified; F17.210 Nicotine dependence, cigarettes, uncomplicated; Z79.82 Long term (current) use of aspirin; Z79.899 Other long term (current) drug therapy
CPT/HCPCS: 45380

== ENCOUNTER → 2018-02-02 | Outpatient (CLI) | payer OTHER ==
[~2018-02-02] MED LIST changes: +ASPI1TAB PO; +BUPR15TA PO; +CEFD300CAP PO; +CIPR-249 PO; +CITA-230 PO; +CLON1TAB8 PO; +CLOP75TA2; +COQ-100C2 PO; +CQ10; +D 50CAP PO; +EXCEDTAB PO; +EZET10TA PO; +FENO145T13 PO; +FLAG500T PO; +IBUPOTC PO; -LIDOCAINE 2% INJ 100 MG/5 ML SDV (FOR ANES.) As Ordered; +LIVA4TAB PO; +MONT10TA2 PO; +MULTTAB23 PO; +NORCOTAB PO; +OMEP20CA3 PO; +ONETAB9 PO; +PROB1TAB PO; -PROPOFOL 200 MG/20 ML VIAL As Ordered; +TYLE325T5 PO; +VALA1TAB2 PO; +VITATAB11 PO
== END ==
LOC: M RAD 14:48
PROVIDERS: ATTEND Physician Assistant
DX: R06.2 Wheezing (principal)

== ENCOUNTER → 2018-02-06 | Outpatient (CLI) | payer OTHER ==
[2018-02-06 09:08] LABS: BLOOD UREA NITROGEN 17 MG/DL (7-18); CALCIUM LEVEL 8.9 MG/DL (8.5-10.1); CARBON DIOXIDE LEVEL 28 MEQ/L (21-32); CHLORIDE LEVEL 110 MEQ/L (98-107); CHOLESTEROL LEVEL 141 MG/DL (<200); CHOLESTEROL RISK RATIO 4.862 (<5); CREATININE FOR GFR 1.26 MG/DL (0.70-1.30); GLOMERULAR FILTRATION RATE > 60.0 (>60); GLUCOSE, FASTING 163 MG/DL (70-100); HDL CHOLESTEROL 29 MG/DL (>40); LDL CHOLESTEROL 49 MG/DL (<100); NON-HDL-C 112 MG/DL; POTASSIUM SERUM 4.2 MEQ/L (3.5-5.1); RHEUMATOID FACTOR QUANT < 10.0 IU/ML (<15.0); SODIUM LEVEL 142 MEQ/L (136-145); TRIGLYCERIDES LEVEL 313 MG/DL (<150)
[2018-02-06 09:27] LABS: HEMOGLOBIN A1c 6.4 %
== END ==
LOC: M LAB 08:16
PROVIDERS: ATTEND Physician Assistant
DX: R73.01 Impaired fasting glucose (principal); I25.10 Atherosclerotic heart disease of native coronary artery without angina pectoris; M25.562 Pain in left knee

== ENCOUNTER 2019-07-24 08:21 | Inpatient (IN) | payer OTHER ==
[~2019-07-24] VITALS: Ht 188 cm; Wt 99.4 kg
[~2019-07-24 08:21] MED LIST changes: -ASPI1TAB PO; +ASPI81TA26 PO; -CITA-230 PO; +CITA20TA7 PO; -EZET10TA PO; +EZET10TA21 PO; -FENO145T13 PO; +FENO145T7 PO; +HYDR-3715 PO; -MONT10TA2 PO; +MONT10TA4 PO; -NORCOTAB PO; +OMEP1CAP73 PO; -OMEP20CA3 PO; -VALA1TAB2 PO; +VALA1TAB5 PO
[2019-07-24] MEDS ORDERED: ZOFR4TAB16 IV (08:30)
[2019-07-24] MEDS ORDERED: [UNRECOGNIZED DRUG - CODE] IV (08:30)
[2019-07-24] MEDS ORDERED: VARE05TA PO (08:31)
[2019-07-24] MEDS ORDERED: NS 1,000 ML IV ONE (09:00)
[2019-07-24 09:25] LABS: BASO # 0.1 10^3/uL (0.0-0.2); BASO % 0.3 % (0.0-1.0); HEMATOCRIT 49.2 % (42.0-52.0); LYMPH # 0.6 10^3/uL (1.5-5.0); LYMPH % 2.8 % (24.0-44.0); MEAN CORPUSCULAR HEMOGLOBIN 29.8 pg (27.0-33.0); MEAN CORPUSCULAR HGB CONC 34.6 g/dl (32.0-36.5); MEAN CORPUSCULAR VOLUME 86.2 fl (80.0-96.0); MONO # 1.4 10^3/uL (0.0-0.8); NEUTROPHILS # 17.4 10^3/uL (1.5-8.5); NEUTROPHILS % 89.3 % (36.0-66.0); PLATELET COUNT, AUTOMATED 194 10^3/uL (150-450); RED BLOOD COUNT 5.71 10^6/uL (4.30-6.10); WHITE BLOOD COUNT 19.5 10^3/uL (4.0-10.0)
[2019-07-24] MEDS ORDERED: PROMETHAZINE INJ 25 MG/ML VIAL (J2550) IV ONE (09:30)
[2019-07-24] MEDS ORDERED: MORPHINE 4 MG/ML 1ML VIAL/SYRINGE (J2270) IV ONE ×2 (09:30→11:45)
[2019-07-24 09:50] LABS: ALBUMIN 3.9 GM/DL (3.2-5.2); ALT/SGPT 43 U/L (12-78); AMYLASE 33 U/L (25-115); BILIRUBIN,DIRECT 0.3 MG/DL (0.0-0.2); BILIRUBIN,TOTAL 1.2 MG/DL (0.2-1.0); BLOOD UREA NITROGEN 13 MG/DL (7-18); CALCIUM LEVEL 8.7 MG/DL (8.5-10.1); CARBON DIOXIDE LEVEL 27 MEQ/L (21-32); CHLORIDE LEVEL 102 MEQ/L (98-107); CK-MB VALUE MASS < 1.0 NG/ML (<3.6); CPK CREATINE PHOSPHOKINASE 61 U/L (39-308); CREATININE FOR GFR 1.24 MG/DL (0.70-1.30); GLOMERULAR FILTRATION RATE > 60.0 (>56); GLUCOSE, FASTING 252 MG/DL (70-100); LIPASE 77 U/L (73-393); MB/CK RELATIVE INDEX 1.64 (< OR =4); POTASSIUM SERUM 4.1 MEQ/L (3.5-5.1); SODIUM LEVEL 139 MEQ/L (136-145); TOTAL PROTEIN 6.7 GM/DL (6.4-8.2); TROPONIN I < 0.02 NG/ML (< 0.10)
[2019-07-24] MEDS ORDERED: PIPERACILLIN/TAZOBACTAM SOD 4.5 GM in D5W MINI-BAG PLUS 50 ML IV ONE (10:15)
[2019-07-24] MEDS ORDERED: NS IV ONE (10:15)
[2019-07-24] MEDS ORDERED: HYDR2.5C TOP (10:28)
[2019-07-24] MEDS ORDERED: VALT1TAB PO (10:28)
[2019-07-24] MEDS ORDERED: VARE1TA PO (10:28)
[2019-07-24] MEDS ORDERED: REPA140I2 SC (10:28)
[2019-07-24] MEDS ORDERED: CELE40TA PO (10:28)
[2019-07-24] MEDS ORDERED: FLUN25SP NARES (10:28)
[2019-07-24] MEDS ORDERED: SILD100T PO (10:28)
[2019-07-24] MEDS ORDERED: ONDANSETRON 4MG/2ML VIAL IV PRN (12:30)
[2019-07-24 12:53] VITALS: BP 154/91
[2019-07-24] MEDS: ENOXAPARIN 40MG/0.4ML SYRINGE (J1650 PER 10MG) SC SCH (13:08)
[2019-07-24] MEDS: PANTOPRAZOLE 40MG VIAL (C9113 PER 1) IV SCH (13:08)
[2019-07-24] MEDS: LR 1,000 ML IV SCH ×2 (13:08→22:01)
--- NOTE | 2019-07-24 15:25 | REP ---
CT ABDOMEN AND PELVIS WITHOUT CONTRAST: CT abdomen and pelvis performed without oral or IV contrast. Sagittal and coronal reconstruction images are performed. The visualized lung bases demonstrate mild fibroatelectatic change. The liver is grossly unremarkable. There is density in the gallbladder which may represent sludge. There is no evidence of gallbladder wall edema. The spleen is normal in size with no gross abnormality. The adrenal glands are normal. The pancreas demonstrates no gross abnormalities. There is no hydronephrosis bilaterally. Two punctate calcifications are seen in the left renal collecting system. There is mild atherosclerotic calcification of the abdominal aorta without aneurysm. No adenopathy is seen. There is no evidence of appendicitis. There are multiple sigmoid diverticula present. There is segmental thickening of the sigmoid colon which projects into the right lower quadrant. There is surrounding pericolonic inflammation of fat. There are a few tiny foci of extraluminal air in this region as well suggesting microperforation. There is mild free fluid in the pelvis. The urinary bladder is grossly unremarkable. There are small bilateral inguinal hernias containing fat. IMPRESSION: Sigmoid diverticulitis. A few tiny foci of extraluminal air is seen adjacent to the sigmoid is compatible with microperforation. There is mild adjacent free fluid in the pelvis. Elda Sorensen was informed of these findings by telephone at the time of the exam at 12:50 p.m. on 07/24/2019. Electronically Signed by Reymundo Sal MD 07/26/2019 12:44 A
[2019-07-24] MEDS: PIPERACILLIN/TAZOBACTAM SOD 3.375 GM in D5W MINI-BAG PLUS 50 ML IV SCH ×2 (15:31→22:01)
[2019-07-24 15:33] VITALS: BP 142/88
--- NOTE | 2019-07-24 17:27 | HPEPDOC ---
General Date of Admission 07/24/19 Date of Service: Jul 24, 2019 Chief Complaint The patient is a 49-year-old male admitted with a reason for visit of Abdominal Pain. Source: Patient History of Present Illness This is a 49-year-old male patient with underlying medical history of myocardial infarction (PA) with stents, hyperlipidemia, Gerd, PTSD, anxiety, depression, chronic neck pain, history of herpes, migraine headaches, and sigmoid diverticulitis in 2018 presented to the hospital with Abdominal pain, nausea , vomiting and diarrhea with 2 blood streaked stools. His symptoms started 1 day ago. He was helping a friend move up from [place]. He had gone down there last w [place] and was driving up from there when his symptoms started while he was passing through [place]. He went to an ER in [facility] where he was diagnosed with diverticulitis, without abscess or perforation. He got a dose of oral antibiotics in the ER there. He did not want to get admitted there. He continued to drive up here and immediately came to our ED after arrival here. Here complained of severe sharp pain all over the abdomen most in the left lower quadrants and hypogastrium. Moving was making the pain worse so he was laying down still in the bed. Pain was 8/[address] here showed acute sigmoid dirverticulitis with possible microperforations. Home Medications Scheduled Aspirin (Aspirin EC) 81 Mg Tab, 81 MG PO QHS, (Reported) Citalopram Hydrobromide (Celexa) 40 Mg Tablet, 40 MG PO QHS, (Reported) Evolocumab (Repatha Sureclick) 140 Mg/1 Ml Pen.injctr, 140 MG SC Q2WK, (Reported) Pitavastatin Calcium (Livalo) 4 Mg Tab, 4 MG PO QHS, (Reported) Varenicline (Chantix) 1 Mg Tablet, 1 MG PO BID, (Reported) Scheduled PRN Flunisolide (Flunisolide) 25 Ml Anthony, 1 SPRAY NARES BID PRN for ALLERGIES, (Reported) Hydrocortisone (Hydrocortisone) 453.6 Gm Cream..g., 1 APLCT TOP BID PRN for RASH/ITCHING, (Reported) APPLIES TO HANDS Omeprazole (Omeprazole) 20 Mg Cap, 20 MG PO BID PRN for HEARTBURN, (Reported) Sildenafil Citrate (Sildenafil Citrate) 100 Mg Tablet, 100 MG PO ASDIRECTED PRN for ERECTILE DYSFUNCTION, (Reported) Valacyclovir HCl (Valtrex) 1,000 Mg Tablet, 1 GM PO DAILY PRN for HERPES OUTBREAK, (Reported) Allergies Coded Allergies: No Known Allergies (Unverified , 12/05/17) Past Medical History Medical History Myocardial infarction (PA) with stents, hyperlipidemia, Gerd, PTSD, anxiety, depression, chronic neck pain, history of herpes, migraine headaches, and sigmoid diverticulitis in 2018 , seasonal allergies Surgical History cardiac stents 2016 Bilateral hernia surgery at 3 years age Another hernia surgery later Family History Significant Family History: No pertinent family hx (discussed with pateint) Social History * Smoker: former Smoker Alcohol: Denies Drugs: denies A-FIB/CHADSVASC A-FIB History Current/History of A-Fib/PAF?: No Review of Systems Constitutional: Denies: Chills, Fever, Night Sweats Eyes: Denies: Pain, Vision change ENT: Denies: Head Aches, Ear Pain, Dysphagia Skin: Denies: Rash, Lesions, Breakdown Pulmonary: Denies: Dyspnea, Cough Cardiovascular: Denies: Chest Pain, Palpitations, Orthopnea, Paroxysmal Noc. Dyspnea, Lt Headedness Gastrointestinal: Reports: Nausea, Vomiting, Abdominal Pain, Diarrhea, Hematochezia Genitourinary: Denies: Dysuria, Frequency, Incontinence, Retention Hematologic: Denies: Bruising, Bleeding Excessively Musculoskeletal: Reports: Neck Pain Psych: Reports: Anxiety, Depression Physical Examination General Exam: Positive: Alert, Cooperative, Mild Distress Eye Exam: Positive: PERRLA, Conjunctiva & lids normal, EOMI; Negative: Sclera icteric ENT Exam: Positive: Atraumatic, Mucous membr. moist/pink, Pharynx Normal Neck Exam: Positive: Supple; Negative: JVD, thyromegaly Chest Exam: Positive: Clear to auscultation, Normal air movement Heart Exam: Positive: Rate Normal, Regular Rhythm, Normal S1, Normal S2; Negative: Murmurs, Rubs Abdomen Exam: Positive: BS Hypoactive, Tenderness (all over max in the LLQ and hypogastrium ), Other (rebound tenderness present.) Extremity Exam: Positive: Normal pulses; Negative: Clubbing, Cyanosis, Edema Skin Exam: Negative: Breakdown, Lesion Neuro Exam: Positive: Normal Speech, Strength at 5/5 X4 ext, Normal Tone Vital Signs Vital Signs Date Time Temp Pulse Resp B/P (MAP) Pulse Ox O2 Delivery O2 Flow Rate FiO2 07/24/19 10:54 144/78 (100) 07/24/19 10:18 99.5 107 18 100 07/24/19 10:07 Room Air Laboratory Data Labs 24H Laboratory Tests 2 07/24/19 08:53: Immature Granulocyte % (Auto) 0.6, Neutrophils (%) (Auto) 89.3H, Lymphocytes (%) (Auto) 2.8L, Monocytes (%) (Auto) 7.0H, Eosinophils (%) (Auto) 0.0, Basophils (%) (Auto) 0.3, Neutrophils # (Auto) 17.4H, Lymphocytes # (Auto) 0.6L, Monocytes # (Auto) 1.4H, Eosinophils # (Auto) 0.0, Basophils # (Auto) 0.1, Nucleated Red Blood Cells % (auto) 0.0, Anion Gap 10, Glomerular Filtration Rate > 60.0, Lactic Acid Level 3.4*H, Calcium Level 8.7, Total Bilirubin 1.2H, Direct Bilir ubin 0.3H, Aspartate Amino Transf (AST/SGOT) 14, Alanine Aminotransferase (ALT/SGPT) 43, Alkaline Phosphatase 88, Total Creatine Kinase 61, Creatine Kinase MB < 1.0, Creatine Kinase MB Relative Index 1.64, Troponin I < 0.02, Total Protein 6.7, Albumin 3.9, Albumin/Globulin Ratio 1.4, Amylase Level 33, Lipase 77 CBC/BMP Laboratory Tests 07/24/19 08:53 Microbiology Microbiology 07/24/19 Blood Culture, Received Pending 07/24/19 Blood Culture, Received Pending Assessment/Plan This is a 49-year-old male patient with underlying medical history of myocardial infarction (PA) with stents, hyperlipidemia, Gerd, PTSD, anxiety, depression, chronic neck pain, history of herpes, migraine headaches, and sigmoid diverticulitis in 2018 presented to the hospital with Abdominal pain, nausea , vomiting and diarrhea with 2 blood streaked stools. His symptoms started 1 day ago. He was helping a friend move up from [place]. He had gone down there last week and was driving up from there when his symptoms started while he was [place]. He went to an ER in [facility] where he was diagnosed with diverticulitis, without abscess or perforation. He got a dose of oral antibiotics in the ER there. He did not want to get admitted there. He continued to drive up here and immediately came to our ED after arrival here. Here complained of severe sharp pain all over the abdomen most in the left lower quadrants and hypogastrium. Moving was making the pain worse so he was laying down still in the bed. Pain was 8/[address] here showed acute sigmoid dirverticulitis with possible microperforations. Acute Sigmoid diverticulitis with microperforation and with sepsis Continue Zosyn NPO IVF, got sepsis protocol IVF in ED morphine, zofran , toradol for symptomatic relief. Surgical consult [place]. Lactic acidosis due to sepsis. CAD/PA s/p PCI/stent continue aspirin hold statin History of herpes. Continue home medication. GERD Continue proton pump inhibitor. Depression./ anxiety/PTSD: will hold med till able to take po. Deep vein thrombosis (DVT) prophylaxis. Heparin subcutaneous. Plan / VTE VTE Prophylaxis Ordered?: Yes WILLIE EMMANUEL MD Jul 24, 2019 11:13
[2019-07-24] MEDS: ASPIRIN 81 MG ENTERIC TAB PO SCH (19:59)
[2019-07-24] MEDS: ACETAMINOPHEN TAB 650MG DOSE (2X325MG) PO PRN (19:59)
[2019-07-24 20:00] VITALS: BP 132/83
[2019-07-24] MEDS: KETOROLAC 30 MG/ML 1ML VIAL IV PRN (20:02)
[2019-07-24] MEDS ORDERED: CitaloPRAM (CeleXA) 20 MG TAB PO SCH (21:00)
[2019-07-24 21:30] VITALS: BP 106/66
[2019-07-25 02:00] VITALS: BP 127/74
[2019-07-25] MEDS: KETOROLAC 30 MG/ML 1ML VIAL IV PRN ×3 (02:36→17:23)
[2019-07-25] MEDS: LR 1,000 ML IV SCH ×3 (03:00→17:15)
[2019-07-25] MEDS: PIPERACILLIN/TAZOBACTAM SOD 3.375 GM in D5W MINI-BAG PLUS 50 ML IV SCH ×4 (04:40→21:14)
[2019-07-25 05:59] LABS: ALT/SGPT 41 U/L (12-78); BILIRUBIN,TOTAL 1.9 MG/DL (0.2-1.0); BLOOD UREA NITROGEN 16 MG/DL (7-18); CARBON DIOXIDE LEVEL 29 MEQ/L (21-32); CHLORIDE LEVEL 106 MEQ/L (98-107); CREATININE FOR GFR 1.18 MG/DL (0.70-1.30); GLOMERULAR FILTRATION RATE > 60.0 (>56); GLUCOSE, FASTING 133 MG/DL (70-100); POTASSIUM SERUM 3.5 MEQ/L (3.5-5.1); SODIUM LEVEL 143 MEQ/L (136-145); TOTAL PROTEIN 5.4 GM/DL (6.4-8.2)
[2019-07-25 06:00] VITALS: BP 130/77
--- NOTE | 2019-07-25 06:47 | CR ---
DATE OF CONSULTATION: 07/24/2019 CONSULTATION FOR: Hospitalist service. REASON FOR CONSULTATION: Diverticulitis. HISTORY OF PRESENT ILLNESS: The patient is a 49-year-old man who presented to the emergency at approximately 8:20 in the morning of July 23 complaining of severe abdominal pain. He reported that this had started at about noon on July 22. He had been [place] when the pain began and actually drove [place]. He was seen in an emergency department in [place] yesterday and apparently had a CT scan which was interpreted as showing some diverticulitis without evidence of free air. He declined treatment there and continued on the road today arriving in the diplomatic interpreter/translator at [facility] for evaluation. He does have a history of a prior episode of diverticulitis. He had presented in July 2017 and was found to have diverticulitis. He was treated with antibiotics, but returned shortly thereafter with persistent disease with a small abscess. This resolved with continuing antibiotic therapy. He had a colonoscopy done in November 2017 which revealed diverticulosis of the sigmoid colon with a small adenoma resected from the rectum. He has apparently not had any symptoms since then. He did have some mild nausea with the onset of his pain, but that resolved. He reports that the pain had started when he had a strong urge to have a bowel movement and he tried to strain some, but had very little stool output and noted onset of the pain thereafter. He has not noticed any blood. In the emergency department, he had a CT scan of the abdomen and pelvis that showed some inflammatory changes in the sigmoid colon in the right lower quadrant. There was some surrounding inflammation of pericolonic fat. The radiologist felt that there might be a few tiny foci of extraluminal air. My interpretation was that the only air outside the bowel could well be within the patient's appendix. The patient was admitted by the hospitalist for management of his diverticulitis and I was asked to consult. ALLERGIES: The patient denies any known drug allergies. MEDICATIONS: Include a baby aspirin daily, Celexa, Repatha SureClick injector, totavastatin, and Chantix. MEDICAL HISTORY: Significant for a myocardial infarction with placement of stents. He has a history of hyperlipidemia, gastroesophageal reflux disease and post traumatic stress disorder. He has some anxiety and depression as well as some chronic neck pain. He has some seasonal allergies and had sigmoid diverticulitis in 2018. SURGICAL HISTORY: Significant for bilateral hernia repair surgery at age 3 years. He subsequently had another hernia repair and then underwent coronary stenting in 2005. FAMILY HISTORY: Significant for diverticular disease in other family members. SOCIAL HISTORY: He is a former smoker. Denies any significant alcohol. REVIEW OF SYSTEMS: He is not having any chest pain or palpitations. He has no respiratory symptoms. He denies dysuria or hematuria. He has had no melena or hematochezia. He denies any new bone or joint issues. There is no history of deep vein thrombosis (DVT) or pulmonary embolus. PHYSICAL EXAMINATION: Most recent vital signs show a temperature of 99.2, although he had spiked a temperature to 103 degrees at 8:00 p.m. on the . His pulse is 82 with a respiratory rate of 19 and a blood pressure of 106/66. The patient is alert after being aroused from sleep. He is appropriate and answers questions willingly and knowledgeably. Skin is warm and dry at this time. Neck is supple. Sclerae are anicteric. Mucous membranes are moist. There are no cervical bruits. Heart exam shows a regular rhythm. The lungs are clear to auscultation bilaterally. The abdomen is perhaps mildly protuberant. There is no sign of hernia, either umbilical or inguinal. He does have some bowel sounds, primarily in the lower quadrants. There is no tympany to percussion. There is some mild tenderness to percussion, primarily in the lower abdomen. On palpation, he has moderate direct tenderness in the right lower quadrant at about the mid clavicular line. There is no mass palpable. There is some milder tenderness across the left lower portion of the abdomen as well. Extremities are without edema. LABORATORY STUDIES: Today, showed a white count of 20,000 with a hemoglobin of 17, hematocrit of 49 and a platelet count of 194,000. Differential count shows 89% neutrophils, 3% lymphocytes and 7% monocytes. Hemoglobin is 17 with a hematocrit of 49 and the platelet count is 194,000. Chemistry profile showed normal electrolytes, BUN and creatinine, and a glucose of 252 when he presented. His lactic acid was 3.4 with a 4-hour followup of 2.2. Total bilirubin was 1.2 with a direct of 0.3, which are both slightly elevated, but the AST, ALT and alkaline phosphatase were all normal. Amylase and lipase were normal. Troponin was less than 0.02. IMAGING STUDIES: Consisted of a CT scan of the abdomen and pelvis. This showed some inflammation of a portion of the sigmoid colon which was slightly to the right of the midline in the pelvis. There were a few small air bubbles to the right of the inflamed area, but these to my interpretation seem to lie in the area of the appendix and may well represent intra-appendiceal air. IMPRESSION AND RECOMMENDATION: The patient clearly has diverticulitis involving a portion of the sigmoid colon. He has quite severe pain with the onset of his diverticulitis. He is feeling a little better now since being admitted to the hospital. He should remain nothing by mouth (n.p.o.) at this point and receive IV hydration. He is on piperacillin-tazobactam and that looks like a good antibacterial agent for his problem. He should receive analgesics as necessary. I will be happy to follow him over the next few days to see if he shows appropriate resolution of his symptoms with antibiotic therapy. The patient was counseled regarding the diverticulitis and the need for antibiotics and he desires to proceed. WILL
[2019-07-25] MEDS: ACETAMINOPHEN TAB 650MG DOSE (2X325MG) PO PRN ×2 (08:40→17:22)
[2019-07-25] MEDS: ENOXAPARIN 40MG/0.4ML SYRINGE (J1650 PER 10MG) SC SCH (08:41)
--- NOTE | 2019-07-25 10:58 | IPNPDOC ---
Subjective Date Seen The patient was seen on 07/25/19. Subjective Chief Complaint/HPI Patient feeling a little bit better today but still has abdominal pain, no nausea, vomiting General: Denies: ROS Unobtainable, Chills, Night Sweats, Fatigue, Malaise, Normal Appetite, Other Symptoms Constitutional: Denies: Chills, Fever, Malaise, Night Sweats, Weakness, Fatigue, Weight Loss, Lethargy, Other Eyes: Denies: Pain, Vision change, Conjunctivae inflammation, Eyelid i nflammation, Redness, Other ENT: Denies: Head Aches, Ear Pain, Dysphagia, Sinus Congestion, Post Nasal Drip, Sore Throat, Epistaxis, Other Symptoms Skin: Denies: Rash, Lesions, Jaundice, Bruising, Itching, Dry, Breakdown, Nail Changes, Other Pulmonary: Denies: Dyspnea, Cough, Pleuritic Chest Pain, Other Symptoms Cardiovascular: Denies: Chest Pain, Palpitations, Orthopnea, Paroxysmal Noc. Dyspnea, Edema, Lt Headedness, Other Symptoms Gastrointestinal: Reports: Abdominal Pain Hematologic: Denies: Bruising, Bleeding Excessively, Petecchia, Purpura, Enlarged Lymph Nodes, Other Hematologic Endocrine: Denies: Polydipsia, Polyphagia, Polyuria, Heat Intolerance, Cold Intolerance, Other Endocrine Sx Musculoskeletal: Denies: Neck Pain, Back Pain, Shoulder Pain, Arm Pain, Hand Pain, Leg Pain, Foot Pain, Joint Pain, Muscle Pain, Spasms, Other Symptoms Neurological: Denies: Weakness, Numbness, Incoordination, Change in speech, Confusion, Seizures, Other Symptoms Psych: Denies: Mood Normal, Anxiety, Depression, Memory Issues, Thoughts of Self Harm, Anger, Thoughts of Harming Other, Other Psych Objective Physical Examination General Exam: Positive: Alert, Cooperative, Mild Distress Eye Exam: Positive: PERRLA, Conjunctiva & lids normal, EOMI; Negative: Sclera icteric ENT Exam: Positive: Atraumatic, Mucous membr. moist/pink, Pharynx Normal Neck Exam: Positive: Supple; Negative: JVD, thyromegaly Chest Exam: Positive: Clear to auscultation, Normal air movement Heart Exam: Positive: Rate Normal, Regular Rhythm, Normal S1, Normal S2; Negative: Murmurs, Rubs Abdomen Exam: Positive: BS Hypoactive, Tenderness (all over max in the LLQ and hypogastrium ), Other (rebound tenderness present.) Extremity Exam: Positive: Normal pulses; Negative: Clubbing, Cyanosis, Edema Skin Exam: Negative: Breakdown, Lesion Neuro Exam: Positive: Normal Speech, Strength at 5/5 X4 ext, Normal Tone Assessment /Plan Problems (1) Acute diverticulitis Status: Acute Problem Text: This is a 49-year-old male patient with underlying medical history of myocardial infarction ([place]) with stents, hyperlipidemia, Gerd, PTSD, anxiety, depression, chronic neck pain, history of herpes, migraine headaches, and sigmoid diverticulitis in 2018 presented to the hospital with Abdominal pain, nausea , vomiting and diarrhea with 2 blood streaked stools. His symptoms started 1 day ago. He was helping a friend move up from [place]. He had gone down there last week and was driving up from there when his symptoms started while he was passing through [place]. He went to an ER in [facility] where he was diagnosed with diverticulitis, without abscess or perforation. He got a dose of oral antibiotics in the ER there. He did not want to get admitted there. He continued to drive up here and immediately came to our ED after arrival here. Here complained of severe sharp pain all over the abdomen most in the left lower quadrants and hypogastrium. Moving was making the pain worse so he was laying down still in the bed. Pain was 8/[address] here showed acute sigmoid dirverticulitis with possible microperforations. Acute Sigmoid diverticulitis with microperforation and with sepsis Continue Zosyn Patient is still nothing by mouth Continue IV fluids as per orders Continue morphine, Zofran and Toradol as per orders. When necessary. Surgical consult appreciated. We will follow their recommendations A.m. level work ordered (2) Depression Status: Chronic Problem Text: Continue home meds (3) GERD (gastroesophageal reflux disease) Status: Chronic Problem Text: Continue home meds (4) CAD (coronary artery disease) Status: Chronic Problem Text: Stable continue home meds Plan/VTE VTE Prophylaxis Ordered?: Yes VS, I&O, 24H, Fishbone Vital Signs/I&O Vital Signs Date Time Temp Pulse Resp B/P (MAP) Pulse Ox O2 Delivery O2 Flow Rate FiO2 07/25/19 06:00 99.9 94 17 130/77 (94) 95 Room Air I&O- Last 24 Hours up to 6 AM0 07/25/19 05:59 Intake Total 3145 ml Output Total 1525 ml Balance 1620 ml Laboratory Data 24H LABS Laboratory Tests 2 07/24/19 11:30: Urine Color STRAW, Urine Appearance CLEAR, Urine pH 7.0, Urine Specific [place] 1.007, Urine Protein 1+H, Urine Glucose (UA) 3+H, Urine Ketones NEGATIVE, Urine Blood 1+H, Urine Nitrite NEGATIVE, Urine Bilirubin NEGATIVE, Urine Urobilinogen 0.2, Urine Leukocyte Esterase NEGATIVE, Urine WBC (Auto) 0, Urine RBC (Auto) 2, Urine Hyaline Casts (Auto) 0, Urine Bacteria (Auto) NEGATIVE, Urine Squamous Epithelial Cells 0, Urine Sperm (Auto) 07/24/19 13:55: Lactic Acid Followup at 4 Hours 2.2*H 07/25/19 05:14: Anion Gap 8, Glomerular Filtration Rate > 60.0, Lactic Acid Level 1.1, Calcium Level 8.0L, Total Bilirubin 1.9#H, Aspartate Amino Transf (AST/SGOT) 25, Alanine Aminotransferase (ALT/SGPT) 41, Alkaline Phosphatase 71, Total Protein 5.4L, Albumin 3.0#L, Albumin/Globulin Ratio 1.3 CBC/BMP Laboratory Tests 07/25/19 05:14 Microbiology Microbiology 07/24/19 Blood Culture - Preliminary, Resulted No growth after 24 hours . All specim... 07/24/19 Blood Culture - Preliminary, Resulted No growth after 24 hours . All specim... ERMIAS ALAN MD Jul 25, 2019 10:58
[2019-07-25 12:46] VITALS: BP 131/78
[2019-07-25] MEDS: PANTOPRAZOLE 40MG VIAL (C9113 PER 1) IV SCH (13:51)
[2019-07-25 14:13] LABS: BASO % 0.4 % (0.0-1.0); EOS # 0.1 10^3/uL (0.0-0.5); EOS % 1.1 % (0.0-3.0); HEMATOCRIT 42.3 % (42.0-52.0); LYMPH % 9.8 % (24.0-44.0); MEAN CORPUSCULAR HEMOGLOBIN 29.1 pg (27.0-33.0); MEAN CORPUSCULAR HGB CONC 33.1 g/dl (32.0-36.5); MEAN CORPUSCULAR VOLUME 87.9 fl (80.0-96.0); MONO # 1.2 10^3/uL (0.0-0.8); MONO % 11.1 % (0.0-5.0); NEUTROPHILS % 77.2 % (36.0-66.0); PLATELET COUNT, AUTOMATED 137 10^3/uL (150-450); RED BLOOD COUNT 4.81 10^6/uL (4.30-6.10); WHITE BLOOD COUNT 10.3 10^3/uL (4.0-10.0)
--- NOTE | 2019-07-25 15:07 | IPN ---
DATE: 07/25/2019 HISTORY: Patient was admitted yesterday by the hospitalists with evidence for acute sigmoid diverticulitis. He had approximately a day to a day and half history of pain when he was admitted. He has been receiving piperacillin-tazobactam. He reports that his discomfort is somewhat diminished but that he remains quite uncomfortable. Vital signs show that his temperature peaked at 103 degrees at 8 p.m. last night, but he has had temperatures in the low 99s ever since. His pulses in the 80s and 90s. His blood pressure is good. Intake and output shows that he has had 1000 of urine output today. He has not had any bowel output. PHYSICAL EXAMINATION: The patient is lying quietly on the hospital bed. Heart exam shows a regular rate and rhythm. The abdomen appears mildly distended. He does have some bowel sounds present. There is some tenderness to percussion in the mid abdomen both on the left and right sides. The abdomen is somewhat full to palpation. He has fairly marked tenderness in the right lower quadrant. LABORATORY STUDIES: His only lab today was a chemistry profile at 5 o'clock in the morning. His electrolytes, BUN, and creatinine are normal and stable. His blood sugar is down to 133 from 252 yesterday. Total bilirubin is slightly up to 1.9, but his other LFTs are normal. Protein and albumin are low at 5.4 and 3.0. He did have repeat lactic acid this morning that was normal at 1.1. IMPRESSION: Patient has documented diverticulitis from CT scan yesterday. There was a question of whether he had one or two very small air bubbles in the area around the involved segment of colon. He is quite tender still today. He does report that he feels better. We do not have any followup complete blood count (CBC) to see if his white count is improved from his level of 20,000 yesterday. PLAN: I am going to order a CBC with a differential right now to followup on his white count. I will also order a CBC with diff and a med profile for tomorrow morning. If his white count has increased, I think it may be prudent to consider repeating his CT scan to look and see if there is further evidence or more definitive evidence of a bowel perforation. WILL
[2019-07-25 17:20] VITALS: BP 163/99
[2019-07-25 18:25] VITALS: BP 156/93
[2019-07-25] MEDS: ASPIRIN 81 MG ENTERIC TAB PO SCH (21:14)
[2019-07-25 22:00] VITALS: BP 147/97
[2019-07-26] MEDS: KETOROLAC 30 MG/ML 1ML VIAL IV PRN ×2 (00:49→18:11)
[2019-07-26] MEDS: PIPERACILLIN/TAZOBACTAM SOD 3.375 GM in D5W MINI-BAG PLUS 50 ML IV SCH ×4 (04:12→22:37)
[2019-07-26] MEDS: ACETAMINOPHEN TAB 650MG DOSE (2X325MG) PO PRN ×3 (05:30→20:00)
[2019-07-26 06:00] VITALS: BP 147/91
[2019-07-26 06:00] LABS: HEMATOCRIT 40.3 % (42.0-52.0); HEMOGLOBIN 13.5 g/dl (13.5-17.5); MEAN CORPUSCULAR HEMOGLOBIN 29.3 pg (27.0-33.0); MEAN CORPUSCULAR HGB CONC 33.5 g/dl (32.0-36.5); MEAN CORPUSCULAR VOLUME 87.4 fl (80.0-96.0); PLATELET COUNT, AUTOMATED 147 10^3/uL (150-450); RED BLOOD COUNT 4.61 10^6/uL (4.30-6.10); WHITE BLOOD COUNT 8.8 10^3/uL (4.0-10.0)
[2019-07-26 06:24] LABS: BLOOD UREA NITROGEN 17 MG/DL (7-18); CALCIUM LEVEL 8.4 MG/DL (8.5-10.1); CARBON DIOXIDE LEVEL 28 MEQ/L (21-32); CHLORIDE LEVEL 105 MEQ/L (98-107); CREATININE FOR GFR 0.98 MG/DL (0.70-1.30); GLOMERULAR FILTRATION RATE > 60.0 (>56); GLUCOSE, FASTING 124 MG/DL (70-100); POTASSIUM SERUM 3.3 MEQ/L (3.5-5.1); SODIUM LEVEL 140 MEQ/L (136-145)
[2019-07-26 06:33] LABS: LYMPHOCYTES 8 % (16-44); MONOCYTES 2 % (0-5); NEUTROPHILS 90 % (28-66)
[2019-07-26 06:34] LABS: PLATELET ESTIMATE NORMAL (NORMAL)
[2019-07-26] MEDS: KCL 10MEQ/100ML SWI (KRUN) 10 MEQ in IV 1 EA IV SCH ×2 (08:20→09:27)
[2019-07-26] MEDS: LR 1,000 ML IV SCH ×3 (09:26→19:55)
[2019-07-26] MEDS: ENOXAPARIN 40MG/0.4ML SYRINGE (J1650 PER 10MG) SC SCH (09:27)
[2019-07-26] MEDS: GASTROGRAFIN SOLUTION 30ML PO SCH ×2 (09:27→10:27)
[2019-07-26] MEDS ORDERED: ISOVUE-370 76% 100ML VIAL As Ordered ONE (09:36)
[2019-07-26] MEDS: MORPHINE 4 MG/ML 1ML VIAL/SYRINGE (J2270) IV PRN ×2 (11:35→20:00)
--- NOTE | 2019-07-26 11:45 | IPNPDOC ---
Subjective Date Seen The patient was seen on 07/26/19. Subjective Chief Complaint/HPI Patient was febrile yesterday with 101, still has generalized abdominal pain General: Reports: Other Symptoms (fever); Denies: ROS Unobtainable, Chills, Night Sweats, Fatigue, Malaise, Normal Appetite Constitutional: Denies: Chills, Fever, Malaise, Night Sweats, Weakness, Fatigue, Weight Loss, Lethargy, Other Pulmonary: Denies: Dyspnea, Cough, Pleuritic Chest Pain, Other Symptoms Cardiovascular: Denies: Chest Pain, Palpitations, Orthopnea, Paroxysmal Noc. Dyspnea, Edema, Lt Headedness, Other Symptoms Gastrointestinal: Reports: Abdominal Pain Genitourinary: Denies: Dysuria, Frequency, Incontinence, Hematuria, Retention, Other Symptoms Hematologic: Denies: Bruising, Bleeding Excessively, Petecchia, Purpura, Enlarged Lymph Nodes, Other Hematologic Neurological: Denies: Weakness, Numbness, Incoordination, Change in speech, Confusion, Seizures, Other Symptoms Objective Physical Examination General Exam: Positive: Alert, Cooperative, Mild Distress Eye Exam: Positive: PERRLA, Conjunctiva & lids normal, EOMI; Negative: Sclera icteric ENT Exam: Positive: Atraumatic, Mucous membr. moist/pink, Pharynx Normal Neck Exam: Positive: Supple; Negative: JVD, thyromegaly Chest Exam: Positive: Clear to auscultation, Normal air movement Heart Exam: Positive: Rate Normal, Regular Rhythm, Normal S1, Normal S2; Negative: Murmurs, Rubs Abdomen Exam: Positive: BS Hypoactive, Tenderness (all over max in the LLQ and hypogastrium ), Other (rebound tenderness present.) Extremity Exam: Positive: Normal pulses; Negative: Clubbing, Cyanosis, Edema Skin Exam: Negative: Breakdown, Lesion Neuro Exam: Positive: Normal Speech, Strength at 5/5 X4 ext, Normal Tone Assessment /Plan Problems (1) Acute diverticulitis Status: Acute Problem Text: This is a 49-year-old male patient with underlying medical history of myocardial infarction ([place]) with stents, hyperlipidemia, Gerd, PTSD, anxiety, depression, chronic neck pain, history of herpes, migraine headaches, and sigmoid diverticulitis in 2018 presented to the hospital with Abdominal pain, nausea , vomiting and diarrhea with 2 blood streaked stools. His symptoms started 1 day ago. He was helping a friend move up from [place]. He had gone down there last week and was driving up from there when his symptoms started while he was passing through [place]. He went to an ER in [facility] where he was diagnosed with diverticulitis, without abscess or perforation. He got a dose of oral antibiotics in the ER there. He did not want to get admitted there. He continued to drive up here and immediately came to our ED after arrival here. Here complained of severe sharp pain all over the abdomen most in the left lower quadrants and hypogastrium. Moving was making the pain worse so he was laying down still in the bed. Pain was 8/[address] here showed acute sigmoid dirverticulitis with possible microperforations. Acute Sigmoid diverticulitis with microperforation and with sepsis Patient was febrile yesterday with 101 Blood culture from admissions are negative so far Will continue IV Zosyn and follow CBC We will also request a repeat CT of the abdomen and pelvis to rule out abscess or perforation Continue morphine, Zofran and Toradol PRN Surgical follow-up awaited (2) Depression Status: Chronic Problem Text: Continue home meds (3) GERD (gastroesophageal reflux disease) Status: Chronic Problem Text: Continue home meds (4) CAD (coronary artery disease) Status: Chronic Problem Text: Stable continue home meds Plan/VTE VTE Prophylaxis Ordered?: Yes VS, I&O, 24H, Fishbone Vital Signs/I&O Vital Signs Date Time Temp Pulse Resp B/P (MAP) Pulse Ox O2 Delivery O2 Flow Rate FiO2 07/26/19 11:35 99.1 07/26/19 11:35 16 07/26/19 06:00 88 147/91 (109) 94 Room Air I&O- Last 24 Hours up to 6 AM 07/26/19 05:59 Intake Total 50 ml Output Total 600 ml Balance -550 ml Laboratory Data 24H LABS Laboratory Tests 2 07/25/19 13:57: Immature Granulocyte % (Auto) 0.4, Neutrophils (%) (Auto) 77.2H, Lymphocytes (%) (Auto) 9.8L, Monocytes (%) (Auto) 11.1H, Eosinophils (%) (Auto) 1.1, Basophils (%) (Auto) 0.4, Neutrophils # (Auto) 8.0, Lymphocytes # (Auto) 1.0L, Monocytes # (Auto) 1.2H, Eosinophils # (Auto) 0.1, Basophils # (Auto) 0.0, Nucleated Red Blood Cells % (auto) 0.0 07/26/19 05:17: Neutrophils (%) (Auto) , Nucleated Red Blood Cells % (auto) 0.0, Neutrophils 90H, Lymphocytes (Manual) 8L, Monocytes (Manual) 2, Red Blood Cell Morphology NORMAL, Platelet Estimate NORMAL, Anion Gap 7L, Glomerular Filtration Rate > 60.0, Calcium Level 8.4L 07/26/19 08:34: Urine Color YELLOW, Urine Appearance CLEAR, Urine pH 7.0, Urine Specific [place] 1.014, Urine Protein NEGATIVE, Urine Glucose (UA) NEGATIVE, Urine Ketones TRACEH, Urine Blood NEGATIVE, Urine Nitrite NEGATIVE, Urine Bilirubin NEGATIVE, Urine Urobilinogen 4.0H, Urine Leukocyte Esterase NEGATIVE, Urine WBC (Auto) 1, Urine RBC (Auto) 1, Urine Hyaline Casts (Auto) 0, Urine Bacteria (Auto) NEGATIVE, Urine Squamous Epithelial Cells 0, Urine Sperm (Auto) CBC/BMP Laboratory Tests 07/25/19 13:57 07/26/19 05:17 Microbiology Microbiology 07/24/19 Blood Culture - Preliminary, Resulted No Growth after 48 hours. All Specime... 07/24/19 Blood Culture - Preliminary, Resulted No Growth after 48 hours. All Specime... ERMIAS ALAN MD Jul 26, 2019 11:45
[2019-07-26] MEDS: PANTOPRAZOLE 40MG VIAL (C9113 PER 1) IV SCH (13:30)
[2019-07-26 13:57] VITALS: BP 165/90
[2019-07-26 16:23] VITALS: BP 143/82
[2019-07-26] MEDS: ASPIRIN 81 MG ENTERIC TAB PO SCH (20:00)
[2019-07-26 20:41] VITALS: BP 155/90
[2019-07-26] MEDS: MIRALAX *UNIT DOSE* 17GM PACKET PO SCH ×3 (22:37→23:46)
--- NOTE | 2019-07-26 22:57 | IPN ---
DATE: 07/26/2019 HISTORY: The patient was admitted with acute diverticulitis on 07/24/2019. He appeared to have a few very small air bubbles near the area of the diverticulitis. He seemed to be improving nicely with antibiotics with a rapid fall in his white blood cell count, but he has remained quite tender crosses lower abdomen. He had a repeat CT scan today. Vital signs: Show that he had a maximum temperature (T max) of 101.3 on 07/25/2019, but then has had another fever up to 101.5 at approximately 1400 today, 07/26/2019. His pulse has generally been in the 80s and 90s and his blood pressure is good. Intake and output: The patient has had poor recording of his IV intake. His urine output has been brisk, and he has had several bowel movements today after his oral contrast. PHYSICAL EXAMINATION: The patient is alert and oriented. He appears somewhat uncomfortable, although seems better than he did the last 2 days. Heart exam shows a regular rate and rhythm. The lungs are clear. The abdomen is mildly protuberant. He does have some bowel sounds present. He does have some mild to moderate direct tenderness across the lower abdomen, most pronounced in the midline and slightly to the right of the midline lower abdomen. Laboratory studies today showed a white count of 9, hemoglobin of 14, hematocrit of 40 and a platelet count of 147,000. His differential count showed 90% neutrophils, 8 lymphocytes and 2 monocytes. Chemistry profile showed a sodium of 140, potassium 3.3, chloride 105, CO2 of 28, BUN of 17, creatinine 0.98 and a glucose of 124. His CT scan today has not been read by radiology yet, but he does have some increased free air, which appears to have tracked to the right and is lying lateral to his terminal ileum with some fluid in this area as well. There is no free air higher up in the abdomen. The pelvis is without any significant free fluid. I did review CT scans from when he was admitted in July and August of 2017 for diverticulitis, and it is the same segment of the midsigmoid that is inflamed and causing the problem. IMPRESSION: Sigmoid diverticulitis with limited perforation and small developing abscess. PLAN: I discussed with the patient that we may be able to avoid the colostomy by proceeding with a semi-elective or semi-urgent, depending on your point of view, sigmoid resection with an anastomosis. If there is little enough contamination that his risk for an anastomosis would not be significantly elevated, then I would reconnect him. It looks as if his contamination is likely limited only to the area around the midsigmoid and not down in the pelvis where the anastomosis would be. He had several bowel movements today after his oral contrast. I discussed with him that we could try watching him just on antibiotics, but I suspect he is going to fail this treatment at some point soon. We could also consider placing a percutaneous drain to the collection by the terminal ileum, but this will not prevent further leakage; it will only try to address what has already leaked. The patient had an opportunity to ask questions. After some discussion, we agreed that we will add him onto the operating room schedule for the 07/27/2019. I will try to effect a limited bowel prep this evening. I will give him several doses of MiraLax as well as some neomycin and Flagyl. He does not appear to have much residual colonic content on his most recent CT, and the contrast has served some laxative effect. He will continue his Zosyn for now. I will hold his Lovenox in the morning.
[2019-07-27] MEDS: PIPERACILLIN/TAZOBACTAM SOD 3.375 GM in D5W MINI-BAG PLUS 50 ML IV SCH ×4 (04:10→22:00)
[2019-07-27] MEDS: KETOROLAC 30 MG/ML 1ML VIAL IV PRN ×2 (04:10→14:15)
[2019-07-27 05:32] VITALS: BP 158/90
[2019-07-27] MEDS: metroNIDAZOLE (FLAGYL) 500 MG TAB PO SCH ×2 (06:39→14:48)
[2019-07-27] MEDS: NEOMYCIN SULFATE 500 MG TAB PO SCH ×2 (06:40→14:48)
--- NOTE | 2019-07-27 07:05 | REP ---
Clinical: Sigmoid diverticulitis. Technique: Axial contrast enhanced images from the lung bases to the pubic symphysis with coronal and sagittal re-formations using 100 ml Isovue 370 intravenous contrast material. Comparison: 07/24/2019. Findings: Mucosal thickening of the sigmoid colon which appears somewhat redundant and extends into the right lower quadrant adjacent to the cecum and appendix with surrounding right lower quadrant inflammatory stranding and small foci of suspected at extraluminal gas are again noted. These findings are consistent with the given history of perforated sigmoid diverticulitis with contained microperforation. There is an area of gas in the right lower quadrant which is inseparable from the cecum, very distal terminal ileum, and tip of the appendix (images 105 - 126) which is difficult to determine whether this represents extraluminal gas or gas within a folded portion of the cecum. There is no evidence for bowel obstruction. Liver, spleen, pancreas, distended gallbladder, bilateral adrenal glands and kidneys are normal. Pelvis demonstrates normal bladder and age appropriate prostate/seminal vesicles along with fat containing inguinal hernias. No significant ascites. Reactive mesenteric adenopathy in the right lower quadrant noted without retroperitoneal adenopathy. No obvious mass. Atherosclerotic changes to the aorta and vasculature noted without aneurysm or dissection. Musculoskeletal structures demonstrate age-related changes. Lung bases demonstrate bibasilar atelectasis increased from prior examination. Impression: 1. Findings described above are similar to prior examination and consistent with the given history of sigmoid diverticulitis with small contained microperforation. There is a new somewhat larger focus of gas in the right lower quadrant described above which may represent intraluminal gas in a very irregular distal cecal base or possibly enlarging extraluminal focal gas. Close clinical observation and follow-up is recommended. 2. Bibasilar atelectasis increased from prior examination. Electronically Signed by William Sullivan MD 07/27/2019 06:57 A
[2019-07-27 07:18] LABS: HEMATOCRIT 37.3 % (42.0-52.0); HEMOGLOBIN 12.5 g/dl (13.5-17.5); MEAN CORPUSCULAR HEMOGLOBIN 29.1 pg (27.0-33.0); MEAN CORPUSCULAR HGB CONC 33.5 g/dl (32.0-36.5); MEAN CORPUSCULAR VOLUME 86.7 fl (80.0-96.0); PLATELET COUNT, AUTOMATED 180 10^3/uL (150-450)
[2019-07-27 07:42] LABS: EOSINOPHILS 1 % (0-3); LYMPHOCYTES 7 % (16-44); MONOCYTES 10 % (0-5); NEUTROPHILS 82 % (28-66); PLATELET ESTIMATE NORMAL (NORMAL)
[2019-07-27 07:46] LABS: ALBUMIN 2.6 GM/DL (3.2-5.2); ALT/SGPT 27 U/L (12-78); BILIRUBIN,TOTAL 1.3 MG/DL (0.2-1.0); BLOOD UREA NITROGEN 16 MG/DL (7-18); CALCIUM LEVEL 8.6 MG/DL (8.5-10.1); CARBON DIOXIDE LEVEL 28 MEQ/L (21-32); CHLORIDE LEVEL 105 MEQ/L (98-107); CREATININE FOR GFR 0.93 MG/DL (0.70-1.30); GLOMERULAR FILTRATION RATE > 60.0 (>56); GLUCOSE, FASTING 111 MG/DL (70-100); POTASSIUM SERUM 3.2 MEQ/L (3.5-5.1); SODIUM LEVEL 140 MEQ/L (136-145); TOTAL PROTEIN 6.1 GM/DL (6.4-8.2)
--- NOTE | 2019-07-27 10:23 | IPNPDOC ---
Subjective Date Seen The patient was seen on 07/27/19. Subjective Chief Complaint/HPI Patient is comfortable stable. Some abdominal pain, scheduled for surgery today General: Denies: ROS Unobtainable, Chills, Night Sweats, Fatigue, Malaise, Normal Appetite, Other Symptoms Constitutional: Denies: Chills, Fever, Malaise, Night Sweats, Weakness, Fatigue, Weight Loss, Lethargy, Other Pulmonary: Denies: Dyspnea, Cough, Pleuritic Chest Pain, Other Symptoms Cardiovascular: Denies: Chest Pain, Palpitations, Orthopnea, Paroxysmal Noc. Dyspnea, Edema, Lt Headedness, Other Symptoms Gastrointestinal: Reports: Abdominal Pain Hematologic: Denies: Bruising, Bleeding Excessively, Petecchia, Purpura, Enlarg ed Lymph Nodes, Other Hematologic Endocrine: Denies: Polydipsia, Polyphagia, Polyuria, Heat Intolerance, Cold Intolerance, Other Endocrine Sx Musculoskeletal: Denies: Neck Pain, Back Pain, Shoulder Pain, Arm Pain, Hand Pain, Leg Pain, Foot Pain, Joint Pain, Muscle Pain, Spasms, Other Symptoms Neurological: Denies: Weakness, Numbness, Incoordination, Change in speech, Confusion, Seizures, Other Symptoms Objective Physical Examination General Exam: Positive: Alert, Cooperative, Mild Distress Chest Exam: Positive: Clear to auscultation, Normal air movement Heart Exam: Positive: Rate Normal, Normal S1, Normal S2 Abdomen Exam: Positive: Tenderness (. Positive tenderness left lower quadrant), Other Extremity Exam: Positive: Normal pulses Assessment /Plan Problems (1) Acute diverticulitis Status: Acute Problem Text: This is a 49-year-old male patient with underlying medical history of myocardial infarction ([place]) with stents, hyperlipidemia, Gerd, PTSD, anxiety, depression, chronic neck pain, history of herpes, migraine headaches, and sigmoid diverticulitis in 2018 presented to the hospital with Abdominal pain, nausea , vomiting and diarrhea with 2 blood streaked stools. His symptoms started 1 day ago. He was helping a friend move up from [place]. He had gone down there last week and was driving up from there when his symptoms started while he was passing through [place]. He went to an ER in [facility] where he was diagnosed with diverticulitis, without abscess or perforation. He got a dose of oral antibiotics in the ER there. He did not want to get admitted there. He continued to drive up here and immediately came to our ED after arrival here. Here complained of severe sharp pain all over the abdomen most in the left lower quadrants and hypogastrium. Moving was making the pain worse so he was laying down still in the bed. Pain was 8/[address] here showed acute sigmoid dirverticulitis with possible microperforations. Acute Sigmoid diverticulitis with microperforation and with sepsis Patient continued to have a low-grade fever today with a WBC count of 9000 Blood culture from admissions are negative so far Repeat CAT scan of the abdomen and pelvis shows: 1. Findings described above are similar to prior examination and consistent with the given history of sigmoid diverticulitis with small contained microperforation. There is a new somewhat larger focus of gas in the right lower quadrant described above which may represent intraluminal gas in a very irregular distal cecal base or possibly enlarging extraluminal focal gas. Close clinical observation and follow-up is recommended. 2. Bibasilar atelectasis increased from prior examination. Surgical follow-up appreciated. Patient is scheduled for surgical intervention today with possible resection and placement of colostomy Continue pain management with morphine and antiemetics such as Zofran Postop care as per surgery (2) Depression Status: Chronic Problem Text: Continue home meds (3) GERD (gastroesophageal reflux disease) Status: Chronic Problem Text: Continue home meds (4) CAD (coronary artery disease) Status: Chronic Problem Text: Stable continue home meds Plan/VTE VTE Prophylaxis Ordered?: Yes VS, I&O, 24H, Fishbone Vital Signs/I&O Vital Signs Date Time Temp Pulse Resp B/P (MAP) Pulse Ox O2 Delivery O2 Flow Rate FiO2 07/27/19 05:32 99.7 80 20 158/90 (112) 96 Room Air I&O- Last 24 Hours up to 6 AM 07/27/19 05:59 Intake Total 1600 ml Output Total 1750 ml Balance -150 ml Laboratory Data 24H LABS Laboratory Tests 2 07/27/19 06:38: Neutrophils (%) (Auto) , Nucleated Red Blood Cells % (auto) 0.0, Neutrophils 82H, Lymphocytes (Manual) 7L, Monocytes (Manual) 10H, Eosinophils (Manual) 1, Red Blood Cell Morphology NORMAL, Platelet Estimate NORMAL, Anion Gap 7L, Glomerular Filtration Rate > 60.0, Calcium Level 8.6, Total Bilirubin 1.3H, Aspartate Amino Transf (AST/SGOT) 13, Alanine Aminotransferase (ALT/SGPT) 27, Alkaline Phosphatase 89, Total Protein 6.1L, Albumin 2.6L, Albumin/Globulin Ratio 0.7 CBC/BMP Laboratory Tests 07/27/19 06:38 Microbiology Microbiology 07/26/19 Respiratory Virus Panel (PCR) ([facility]) - Final, Complete 07/24/19 Blood Culture - Preliminary, Resulted No Growth after 48 hours. All Specime... 07/24/19 Blood Culture - Preliminary, Resulted No Growth after 72 hours. All specime... ERMIAS ALAN MD Jul 27, 2019 10:23
[2019-07-27] MEDS: LR 1,000 ML IV SCH ×2 (10:35→14:16)
[2019-07-27 14:00] VITALS: BP 152/88
[2019-07-27] MEDS: PANTOPRAZOLE 40MG VIAL (C9113 PER 1) IV SCH (14:15)
[2019-07-27] MEDS: MORPHINE 4 MG/ML 1ML VIAL/SYRINGE (J2270) IV PRN (14:26)
[2019-07-27] MEDS ORDERED: fentaNYL 250 MCG/5 ML INJECTION (J3010) As Ordered ONE (14:54)
[2019-07-27] MEDS ORDERED: ONDANSETRON 4MG/2ML VIAL As Ordered ONE ×2 (14:54→20:02)
[2019-07-27] MEDS ORDERED: MIDAZOLAM INJ 2MG/2ML VIAL (J2250 PER 1MG) As Ordered ONE ×2 (14:54→20:02)
[2019-07-27] MEDS ORDERED: dexameTHASONE 4 MG/ML 1ML VIAL (J1100 PER 1MG) As Ordered ONE ×2 (14:54→20:02)
[2019-07-27] MEDS ORDERED: ePHEDrine SULFATE 25 MG/5 ML(5MG/ML) SYRINGE As Ordered ONE (14:55)
[2019-07-27] MEDS ORDERED: propofoL 200 MG/20 ML VIAL As Ordered ONE ×2 (14:55→20:02)
[2019-07-27] MEDS ORDERED: SUGAMMADEX SODIUM 500 MG/5 ML VIAL (BRIDION) As Ordered ONE ×2 (14:55→22:05)
[2019-07-27] MEDS ORDERED: ROCURONIUM BROMIDE 50 MG/5 ML VIAL As Ordered ONE ×4 (14:55→22:10)
[2019-07-27] MEDS ORDERED: PHENYLephrine HCL 500 MCG/5 ML (100MCG/ML) SYRINGE (J2370) As Ordered ONE (14:55)
[2019-07-27] MEDS ORDERED: LIDOCAINE 2% 100MG/5ML SDV (FOR ANES.) As Ordered ONE ×2 (14:55→20:02)
[2019-07-27] MEDS ORDERED: GLYCOPYRROLATE INJ 0.2 MG/ML 2 ML VIAL As Ordered ONE (15:10)
[2019-07-27] MEDS ORDERED: BUPIVACAINE HCL 0.25% 30ML VIAL As Ordered ONE (17:06)
[2019-07-27] MEDS ORDERED: HYDROmorphone HCL 2 MG/ML 1ML VIAL (J1170) As Ordered ONE (20:02)
[2019-07-27] MEDS ORDERED: KETOROLAC 60MG 2ML VIAL As Ordered ONE (20:02)
[2019-07-27] MEDS ORDERED: fentaNYL 100 MCG/2 ML INJECTION (J3010) As Ordered ONE (20:02)
[2019-07-27] MEDS ORDERED: ACETAMINOPHEN 1000MG 100ML IV BTL (OFIRMEV) (J0131 PER 10MG) As Ordered ONE (20:10)
[2019-07-27] MEDS: ASPIRIN 81 MG ENTERIC TAB PO SCH (21:00)
[2019-07-27] MEDS ORDERED: ZOSYN 3.375GM VIAL (J2543) As Ordered ONE (21:22)
[2019-07-27] MEDS ORDERED: LACRILUBE (AKWA TEARS) OPHTH OINT 3.5 GM As Ordered ONE (21:30)
[2019-07-28] VITALS (11 sets, daily range): BP systolic 147–172; BP diastolic 84–102
[2019-07-28] MEDS ORDERED: fentaNYL 100 MCG/2 ML INJECTION (J3010) As Ordered ONE ×2 (02:33→02:54)
[2019-07-28] MEDS ORDERED: PERCOCET 5MG/325MG TAB As Ordered ONE (02:54)
[2019-07-28] MEDS: fentaNYL 100 MCG/2 ML INJECTION (J3010) IV PRN ×3 (02:55→03:05)
[2019-07-28] MEDS: LR 1,000 ML IV SCH ×2 (03:00→13:00)
[2019-07-28] MEDS ORDERED: oxyCODONE 5MG TAB PO PRN (03:00)
[2019-07-28] MEDS ORDERED: MORPHINE 2 MG/ML 1ML VIAL (J2270) IV PRN (03:00)
[2019-07-28] MEDS ORDERED: ZOSYN 3.375GM VIAL (J2543) As Ordered ONE (03:10)
[2019-07-28] MEDS ORDERED: LR 1,000 ML IV SCH (03:15)
[2019-07-28] MEDS ORDERED: ONDANSETRON 4MG/2ML VIAL IV PRN (03:15)
[2019-07-28] MEDS ORDERED: PERCOCET 5MG/325MG TAB PO PRN (03:15)
[2019-07-28] MEDS ORDERED: METOCLOPRAMIDE INJ 10MG/2ML VIAL (J2765 PER 1) IV PRN (03:15)
[2019-07-28] MEDS: PIPERACILLIN/TAZOBACTAM SOD 3.375 GM in D5W MINI-BAG PLUS 50 ML IV SCH ×4 (03:19→22:16)
--- NOTE | 2019-07-28 07:22 | ECGEPIP ---
[facility] Test Date: 2019-07-27 Pat Name: JOHANN STOKES Department: Room: [place] [address] Gender: Male Gold Blower: : 1970 Requested By: Wali Fish Order Number: [id number] Reading MD: Kwan Rosales Measurements Intervals [place] Rate: 67 P: 54 PA: 148 QRS: 21 QRSD: 93 T: 18 QT: 433 QTc: 457 Interpretive Statements SINUS RHYTHM Low QRS complex voltage in the limb leads Similar to tracing done 08-04-17 Electronically Signed on 07-28-2019 7:21:53 EDT by Kwan Rosales
[2019-07-28] MEDS: ALVIMOPAN 12 MG CAPSULE (ENTEREG) PO SCH ×2 (08:22→19:54)
[2019-07-28] MEDS: KETOROLAC 30 MG/ML 1ML VIAL IV SCH ×3 (08:23→19:55)
[2019-07-28] MEDS ORDERED: POTASSIUM CHLORIDE 10 MEQ SR TABLET PO ONE (09:00)
[2019-07-28 10:05] LABS: HEMATOCRIT 40.4 % (42.0-52.0); HEMOGLOBIN 13.5 g/dl (13.5-17.5); MEAN CORPUSCULAR HEMOGLOBIN 29.2 pg (27.0-33.0); MEAN CORPUSCULAR HGB CONC 33.4 g/dl (32.0-36.5); MEAN CORPUSCULAR VOLUME 87.4 fl (80.0-96.0); PLATELET COUNT, AUTOMATED 258 10^3/uL (150-450); RED BLOOD COUNT 4.62 10^6/uL (4.30-6.10); WHITE BLOOD COUNT 14.1 10^3/uL (4.0-10.0)
[2019-07-28 10:28] LABS: ALBUMIN 2.7 GM/DL (3.2-5.2); ALT/SGPT 42 U/L (12-78); BILIRUBIN,TOTAL 0.8 MG/DL (0.2-1.0); BLOOD UREA NITROGEN 15 MG/DL (7-18); CALCIUM LEVEL 7.9 MG/DL (8.5-10.1); CARBON DIOXIDE LEVEL 29 MEQ/L (21-32); CHLORIDE LEVEL 104 MEQ/L (98-107); CREATININE FOR GFR 1.18 MG/DL (0.70-1.30); GLOMERULAR FILTRATION RATE > 60.0 (>56); GLUCOSE, FASTING 184 MG/DL (70-100); POTASSIUM SERUM 3.6 MEQ/L (3.5-5.1); SODIUM LEVEL 141 MEQ/L (136-145); TOTAL PROTEIN 5.8 GM/DL (6.4-8.2)
[2019-07-28 10:33] LABS: LYMPHOCYTES 7 % (16-44); MONOCYTES 6 % (0-5); NEUTROPHILS 86 % (28-66); PLATELET ESTIMATE NORMAL (NORMAL)
[2019-07-28 10:36] LABS: ANISOCYTOSIS 1+
--- NOTE | 2019-07-28 12:32 | IPNPDOC ---
Subjective Date Seen The patient was seen on 07/28/19. Subjective Chief Complaint/HPI Status post surgical resection of perforated bowel, drain in place Patient is still has no gets a BM so far, he is complaining of some pain at the site, but he can tolerate General: Denies: ROS Unobtainable, Chills, Night Sweats, Fatigue, Malaise, Normal Appetite, Other Symptoms Skin: Denies: Rash, Lesions, Jaundice, Bruising, Itching, Dry, Breakdown, Nail Changes, Other Pulmonary: Denies: Dyspnea, Cough, Pleuritic Chest Pain, Other Symptoms Gastrointestinal: Reports: Abdominal Pain Genitourinary: Denies: Dysuria, Frequency, Incontinence, Hematuria, Retention, Other Symptoms Musculoskeletal: Denies: Neck Pain, Back Pain, Shoulder Pain, Arm Pain, Hand Pain, Leg Pain, Foot Pain, Joint Pain, Muscle Pain, Spasms, Other Symptoms Neurological: Denies: Weakness, Numbness, Incoordination, Change in speech, Confusion, Seizures, Other Symptoms Objective Physical Examination General Exam: Positive: Alert, Cooperative, Mild Distress Chest Exam: Positive: Clear to auscultation, Normal air movement Heart Exam: Positive: Rate Normal, Normal S1, Normal S2 Abdomen Exam: Positive: Tenderness, Other (. Positive multiple incisions with dressing on abdomen with drain in place generalized tenderness on deep palpation but no rebound tenderness) Extremity Exam: Positive: Normal pulses Assessment /Plan Problems (1) Acute diverticulitis Status: Acute Problem Text: This is a 49-year-old male patient with underlying medical history of myocardial infarction ([place]) with stents, hyperlipidemia, Gerd, PTSD, anxiety, depression, chronic neck pain, history of herpes, migraine headaches, and sigmoid diverticulitis in 2018 presented to the hospital with Abdominal pain, nausea , vomiting and diarrhea with 2 blood streaked stools. His symptoms started 1 day ago. He was helping a friend move up from [place]. He had gone down there last week and was driving up from there when his symptoms started while he was passing through [place]. He went to an ER in [facility] where he was diagnosed with diverticulitis, without abscess or perforation. He got a dose of oral antibiotics in the ER there. He did not want to get admitted there. He continued to drive up here and immediately came to our ED after arrival here. Here complained of severe sharp pain all over the abdomen most in the left lower quadrants and hypogastrium. Moving was making the pain worse so he was laying down still in the bed. Pain was 8/[address] here showed acute sigmoid dirverticulitis with possible microperforations. Acute Sigmoid diverticulitis with microperforation and with sepsis Status post perforated colon resection with anastomosis and drain in place postop day #1 No bowel movements or gas discharge Patient is still nothing by mouth Pain management as per orders Early ambulation Further instruction as per surgery Continue IV antibiotics (2) Depression Status: Chronic Problem Text: Continue home meds (3) GERD (gastroesophageal reflux disease) Status: Chronic Problem Text: Continue home meds (4) CAD (coronary artery disease) Status: Chronic Problem Text: Stable continue home meds Plan/VTE VTE Prophylaxis Ordered?: Yes VS, I&O, 24H, Fishbone Vital Signs/I&O Vital Signs Date Time Temp Pulse Resp B/P (MAP) Pulse Ox O2 Delivery O2 Flow Rate FiO2 07/28/19 10:00 97.4 73 18 150/89 (109) 95 Nasal Cannula 2.0 I&O- Last 24 Hours up to 6 AM 07/28/19 06:00 Intake Total 2460 ml Output Total 960 ml Balance 1500 ml Laboratory Data 24H LABS Laboratory Tests 2 07/28/19 09:56: Neutrophils (%) (Auto) , Nucleated Red Blood Cells % (auto) 0.0, Neutrophils 86H, Band Neutrophils 1, Lymphocytes (Manual) 7L, Monocytes (Manual) 6H, Anisocytosis 1+, Platelet Estimate NORMAL, Anion Gap 8, Glomerular Filtration Rate > 60.0, Calcium Level 7.9L, Total Bilirubin 0.8, Aspartate Amino Transf (AST/SGOT) 65H, Alanine Aminotransferase (ALT/SGPT) 42, Alkaline Phosphatase 115 , Total Protein 5.8L, Albumin 2.7L, Albumin/Globulin Ratio 0.9 CBC/BMP Laboratory Tests 07/28/19 09:56 Microbiology Microbiology 07/26/19 Respiratory Virus Panel (PCR) ([facility]) - Final, Complete 07/24/19 Blood Culture - Preliminary, Resulted No Growth after 72 hours. All specime... 07/24/19 Blood Culture - Preliminary, Resulted No Growth after 72 hours. All specime... ERMIAS ALAN MD Jul 28, 2019 12:32
[2019-07-28] MEDS: PANTOPRAZOLE 40MG VIAL (C9113 PER 1) IV SCH (13:41)
[2019-07-28] MEDS: ASPIRIN 81 MG ENTERIC TAB PO SCH (19:55)
[2019-07-28] MEDS: CitaloPRAM (CeleXA) 20 MG TAB PO SCH (19:55)
--- NOTE | 2019-07-28 20:47 | IPNPDOC ---
Text Note Date of Service The patient was seen on 07/28/19. NOTE No acute events overnight. He is tolerating the clq diet. Denies nausea, emesis, fevers, or pain. He has not been out of bed yet. VSSAF NAD abd - soft, TTP appropriate, dressings c/d/i, drain is serosanguinous labs - below A) 49y/o male s/p RA sigmoidectomy with primary anastamosis for diverticulitis w/ abscess P)clq diet ambulate await return of bowel function Odilon Vigil DO VS,[place], I+O VS, Fishbone, I+O Laboratory Tests 07/28/19 09:56 Vital Signs Date Time Temp Pulse Resp B/P (MAP) Pulse Ox O2 Delivery O2 Flow Rate FiO2 07/28/19 18:00 99.6 78 18 162/96 (118) 97 Room Air 07/28/19 10:00 2.0 l I&O- Last 24 Hours up to 6 AM 07/28/19 06:00 Intake Total 2460 ml Output Total 960 ml Balance 1500 ml SARAH VIGIL DO Jul 28, 2019 20:47
[2019-07-28] MEDS ORDERED: amLODIPine 5 MG TAB PO ONE (22:00)
[2019-07-29 02:00] VITALS: BP 143/93
[2019-07-29] MEDS: KETOROLAC 30 MG/ML 1ML VIAL IV SCH ×3 (02:26→08:24)
[2019-07-29] MEDS: PIPERACILLIN/TAZOBACTAM SOD 3.375 GM in D5W MINI-BAG PLUS 50 ML IV SCH ×4 (04:23→21:31)
[2019-07-29 06:00] VITALS: BP 133/75
[2019-07-29 07:03] LABS: BASO # 0.1 10^3/uL (0.0-0.2); BASO % 0.5 % (0.0-1.0); EOS # 0.3 10^3/uL (0.0-0.5); EOS % 2.9 % (0.0-3.0); HEMATOCRIT 36.2 % (42.0-52.0); LYMPH # 1.2 10^3/uL (1.5-5.0); LYMPH % 12.4 % (24.0-44.0); MEAN CORPUSCULAR HEMOGLOBIN 29.1 pg (27.0-33.0); MEAN CORPUSCULAR HGB CONC 33.1 g/dl (32.0-36.5); MEAN CORPUSCULAR VOLUME 87.7 fl (80.0-96.0); MONO # 1.1 10^3/uL (0.0-0.8); MONO % 11.3 % (0.0-5.0); NEUTROPHILS # 6.7 10^3/uL (1.5-8.5); PLATELET COUNT, AUTOMATED 255 10^3/uL (150-450); RED BLOOD COUNT 4.13 10^6/uL (4.30-6.10); WHITE BLOOD COUNT 9.3 10^3/uL (4.0-10.0)
--- NOTE | 2019-07-29 07:04 | IPNPDOC ---
Text Note Date of Service The patient was seen on 07/29/19. NOTE No acute events overnight. He is tolerating the clq diet. Denies nausea, emesis, fevers, or pain. He has been walking in the halls and has had a few BMS. VSSAF NAD abd - soft, TTP appropriate, incision c/d/i, drain is serosanguinous labs - below A) 49y/o male s/p RA sigmoidectomy with primary anastamosis for diverticulitis w/ abscess P)reg diet ambulate await return of bowel function Odilon Vigil DO VS,[place], I+O VS, [place], I+O Laboratory Tests 07/28/19 09:56 Vital Signs Date Time Temp Pulse Resp B/P (MAP) Pulse Ox O2 Delivery O2 Flow Rate FiO2 07/29/19 06:00 98.1 76 20 133/75 (94) 93 Room Air 07/28/19 10:00 2.0 I&O- Last 24 Hours up to 6 AM 07/29/19 05:59 Intake Total 1320 ml Output Total 1200 ml Balance 120 ml SARAH VIGIL DO Jul 29, 2019 07:04
[2019-07-29 07:34] LABS: ALBUMIN 2.4 GM/DL (3.2-5.2); ALT/SGPT 48 U/L (12-78); BILIRUBIN,TOTAL 0.6 MG/DL (0.2-1.0); BLOOD UREA NITROGEN 11 MG/DL (7-18); CALCIUM LEVEL 7.9 MG/DL (8.5-10.1); CARBON DIOXIDE LEVEL 31 MEQ/L (21-32); CHLORIDE LEVEL 108 MEQ/L (98-107); CREATININE FOR GFR 0.86 MG/DL (0.70-1.30); GLOMERULAR FILTRATION RATE > 60.0 (>56); GLUCOSE, FASTING 119 MG/DL (70-100); POTASSIUM SERUM 3.4 MEQ/L (3.5-5.1); SODIUM LEVEL 146 MEQ/L (136-145); TOTAL PROTEIN 5.3 GM/DL (6.4-8.2)
[2019-07-29] MEDS: ALVIMOPAN 12 MG CAPSULE (ENTEREG) PO SCH ×2 (08:24→20:37)
[2019-07-29] MEDS ORDERED: POTASSIUM CHLORIDE 10 MEQ SR TABLET PO ONE (09:00)
--- NOTE | 2019-07-29 10:16 | IPNPDOC ---
Subjective Date Seen The patient was seen on 07/29/19. Subjective Chief Complaint/HPI Patient is feeling much better, decreased abdominal pain and has been passing gas General: Denies: ROS Unobtainable, Chills, Night Sweats, Fatigue, Malaise, Normal Appetite, Other Symptoms Constitutional: Denies: Chills, Fever, Malaise, Night Sweats, Weakness, Fatigue, Weight Loss, Lethargy, Other Skin: Denies: Rash, Lesions, Jaundice, Bruising, Itching, Dry, Breakdown, Nail Changes, Other Pulmonary: Denies: Dyspnea, Cough, Pleuritic Chest Pain, Other Symptoms Cardiovascular: Denies: Chest Pain, Palpitations, Orthopnea, Paroxysmal Noc. Dyspnea, Edema, Lt Headedness, Other Symptoms Gastrointestinal: Reports: Other Symptoms (mild generalized tenderness on palpation) Musculoskeletal: Denies: Neck Pain, Back Pain, Shoulder Pain, Arm Pain, Hand Pain, Leg Pain, Foot Pain, Joint Pain, Muscle Pain, Spasms, Other Symptoms Neurological: Denies: Weakness, Numbness, Incoordination, Change in speech, Confusion, Seizures, Other Symptoms Objective Physical Examination General Exam: Positive: Alert, Cooperative, Mild Distress Chest Exam: Positive: Clear to auscultation, Normal air movement Heart Exam: Positive: Rate Normal, Normal S1, Normal S2 Abdomen Exam: Positive: Tenderness, Other (, mild generalized tenderness on palpation) Extremity Exam: Positive: Normal pulses Assessment /Plan Problems (1) Acute diverticulitis Status: Acute Problem Text: This is a 49-year-old male patient with underlying medical history of myocardial infarction (VA) with stents, hyperlipidemia, Gerd, PTSD, anxiety, depression, chronic neck pain, history of herpes, migraine headaches, and sigmoid diverticulitis in 2018 presented to the hospital with Abdominal pain, nausea , vomiting and diarrhea with 2 blood streaked stools. His symptoms started 1 day ago. He was helping a friend move up from [place]. He had gone down there last week and was driving up from there when his symptoms started while he was passing through [place]. He went to an ER in [facility] where he was diagnosed with diverticulitis, without abscess or perforation. He got a dose of oral antibiotics in the ER there. He did not want to get admitted there. He continued to drive up here and immediately came to our ED after arrival here. Here complained of severe sharp pain all over the abdomen most in the left lower quadrants and hypogastrium. Moving was making the pain worse so he was laying down still in the bed. Pain was 8/[address] here showed acute sigmoid dirverticulitis with possible microperforations. Acute Sigmoid diverticulitis with microperforation and with sepsis S/P RA sigmoidectomy with primary anastamosis for diverticulitis w/ abscess, postop day #2 Patient is a passing gas today Diet as per surgery's recommendations Continue pain management Ambulate as possible Will continue IV antibiotic and is discharged home (2) Depression Status: Chronic Problem Text: Continue home meds (3) GERD (gastroesophageal reflux disease) Status: Chronic Problem Text: Continue home meds (4) CAD (coronary artery disease) Status: Chronic Problem Text: Stable continue home meds Plan/VTE VTE Prophylaxis Ordered?: Yes VS, I&O, 24H, Fishbone Vital Signs/I&O Vital Signs Date Time Temp Pulse Resp B/P (MAP) Pulse Ox O2 Delivery O2 Flow Rate FiO2 07/29/19 06:00 98.1 76 20 133/75 (94) 93 Room Air 07/28/19 10:00 2.0 I&O- Last 24 Hours up to 6 AM 07/29/19 06:00 Intake Total 1320 ml Output Total 1880 ml Balance -560 ml Laboratory Data 24H LABS Laboratory Tests 2 07/29/19 06:21: Immature Granulocyte % (Auto) 0.9, Neutrophils (%) (Auto) 72.0H, Lymphocytes (%) (Auto) 12.4L, Monocytes (%) (Auto) 11.3H, Eosinophils (%) (Auto) 2.9, Basophils (%) (Auto) 0.5, Neutrophils # (Auto) 6.7, Lymphocytes # (Auto) 1.2L, Monocytes # (Auto) 1.1H, Eosinophils # (Auto) 0.3, Basophils # (Auto) 0.1, Nucleated Red Blood Cells % (auto) 0.0, Anion Gap 7L, Glomerular Filtration Rate > 60.0, Calcium Level 7.9L, Total Bilirubin 0.6, Aspartate Amino Transf (AST/SGOT) 60H, Alanine Aminotransferase (ALT/SGPT) 48, Alkaline Phosphatase 117, Total Protein 5.3L, Albumin 2.4L, Albumin/Globulin Ratio 0.8 CBC/BMP Laboratory Tests 07/29/19 06:21 Microbiology Microbiology 07/26/19 Respiratory Virus Panel (PCR) ([facility]) - Final, Complete 07/24/19 Blood Culture - Preliminary, Resulted No Growth after 72 hours. All specime... 07/24/19 Blood Culture - Final, Complete NO GROWTH AFTER 5 DAYS ERMIAS ALAN MD Jul 29, 2019 10:16
[2019-07-29 10:26] VITALS: BP 138/79
[2019-07-29] MEDS: PANTOPRAZOLE 40MG VIAL (C9113 PER 1) IV SCH (12:21)
[2019-07-29 15:17] VITALS: BP 168/88
[2019-07-29 20:15] VITALS: BP 176/100
[2019-07-29] MEDS: ASPIRIN 81 MG ENTERIC TAB PO SCH (20:37)
[2019-07-29] MEDS: CitaloPRAM (CeleXA) 20 MG TAB PO SCH (20:37)
[2019-07-29] MEDS: ACETAMINOPHEN TAB 650MG DOSE (2X325MG) PO PRN (20:38)
[2019-07-29 21:00] VITALS: BP 160/88
[2019-07-30] VITALS (8 sets, daily range): BP systolic 158–178; BP diastolic 64–100
[2019-07-30] MEDS ORDERED: amLODIPine 5 MG TAB PO ONE (02:45)
[2019-07-30] MEDS: PIPERACILLIN/TAZOBACTAM SOD 3.375 GM in D5W MINI-BAG PLUS 50 ML IV SCH ×2 (03:58→09:47)
[2019-07-30] MEDS ORDERED: **hydrALAZINE HCL** 25 MG TAB PO ONE ×2 (05:00→06:30)
[2019-07-30 05:44] LABS: BASO # 0.1 10^3/uL (0.0-0.2); BASO % 0.7 % (0.0-1.0); EOS # 0.5 10^3/uL (0.0-0.5); EOS % 5.4 % (0.0-3.0); HEMATOCRIT 40.5 % (42.0-52.0); HEMOGLOBIN 13.3 g/dl (13.5-17.5); LYMPH # 1.2 10^3/uL (1.5-5.0); LYMPH % 13.5 % (24.0-44.0); MEAN CORPUSCULAR HEMOGLOBIN 28.9 pg (27.0-33.0); MEAN CORPUSCULAR HGB CONC 32.8 g/dl (32.0-36.5); MEAN CORPUSCULAR VOLUME 87.9 fl (80.0-96.0); MONO # 1.1 10^3/uL (0.0-0.8); MONO % 12.5 % (0.0-5.0); NEUTROPHILS # 5.9 10^3/uL (1.5-8.5); NEUTROPHILS % 66.5 % (36.0-66.0); PLATELET COUNT, AUTOMATED 317 10^3/uL (150-450); RED BLOOD COUNT 4.61 10^6/uL (4.30-6.10); WHITE BLOOD COUNT 8.9 10^3/uL (4.0-10.0)
[2019-07-30 06:22] LABS: ALBUMIN 2.6 GM/DL (3.2-5.2); ALT/SGPT 48 U/L (12-78); BILIRUBIN,TOTAL 0.8 MG/DL (0.2-1.0); BLOOD UREA NITROGEN 8 MG/DL (7-18); CARBON DIOXIDE LEVEL 28 MEQ/L (21-32); CHLORIDE LEVEL 104 MEQ/L (98-107); CREATININE FOR GFR 0.73 MG/DL (0.70-1.30); GLOMERULAR FILTRATION RATE > 60.0 (>56); GLUCOSE, FASTING 119 MG/DL (70-100); POTASSIUM SERUM 3.3 MEQ/L (3.5-5.1); SODIUM LEVEL 140 MEQ/L (136-145); TOTAL PROTEIN 6.6 GM/DL (6.4-8.2)
[2019-07-30] MEDS ORDERED: POTASSIUM CHLORIDE 10 MEQ SR TABLET PO ONE (09:00)
[2019-07-30] MEDS ORDERED: PANTOPRAZOLE 40MG TAB (PROTONIX) PO SCH (09:00)
[2019-07-30] MEDS ORDERED: amLODIPine 5 MG TAB PO SCH (09:00)
[2019-07-30] MEDS: ALVIMOPAN 12 MG CAPSULE (ENTEREG) PO SCH (09:47)
--- NOTE | 2019-07-30 11:35 | IPNPDOC ---
Subjective Date Seen The patient was seen on 07/30/19. Subjective Chief Complaint/HPI Patient's comfort level. Tolerating oral feeding very well, had a BM. Awaiting surgical follow-up General: Denies: ROS Unobtainable, Chills, Night Sweats, Fatigue, Malaise, Normal Appetite, Other Symptoms Constitutional: Denies: Chills, Fever, Malaise, Night Sweats, Weakness, Fatigue, Weight Loss, Lethargy, Other Pulmonary: Denies: Dyspnea, Cough, Pleuritic Chest Pain, Other Symptoms Cardiovascular: Denies: Chest Pain, Palpitations, Orthopnea, Paroxysmal Noc. Dyspnea, Edema, Lt Headedness, Other Symptoms Gastrointestinal: Reports: Other Symptoms (, mild pain at the abdomen) Genitourinary: Denies: Dysuria, Frequency, Incontinence, Hematuria, Retention, Other Symptoms Hematologic: Denies: Bruising, Bleeding Excessively, Petecchia, Purpura, Enlarged Lymph Nodes, Other Hematologic Endocrine: Denies: Polydipsia, Polyphagia, Polyuria, Heat Intolerance, Cold Intolerance, Other Endocrine Sx Musculoskeletal: Denies: Neck Pain, Back Pain, Shoulder Pain, Arm Pain, Hand Pain, Leg Pain, Foot Pain, Joint Pain, Muscle Pain, Spasms, Other Symptoms Neurological: Denies: Weakness, Numbness, Incoordination, Change in speech, C onfusion, Seizures, Other Symptoms Objective Physical Examination General Exam: Positive: Alert, Cooperative, Mild Distress Chest Exam: Positive: Clear to auscultation, Normal air movement Heart Exam: Positive: Rate Normal, Normal S1, Normal S2 Abdomen Exam: Positive: Tenderness, Other (, mild tenderness on palpation) Extremity Exam: Positive: Normal pulses Assessment /Plan Problems (1) Acute diverticulitis Status: Acute Problem Text: This is a 49-year-old male patient with underlying medical history of myocardial infarction (ME) with stents, hyperlipidemia, Gerd, PTSD, anxiety, depression, chronic neck pain, history of herpes, migraine headaches, and sigmoid diverticulitis in 2018 presented to the hospital with Abdominal pain, nausea , vomiting and diarrhea with 2 blood streaked stools. His symptoms started 1 day ago. He was helping a friend move up from [place]. He had gone down there last week and was driving up from there when his symptoms started while he was passing through [employer]. He went to an ER in [facility] where he was diagnosed with diverticulitis, without abscess or perforation. He got a dose of oral antibiotics in the ER there. He did not want to get admitted there. He continued to drive up here and immediately came to our ED after arrival here. Here complained of severe sharp pain all over the abdomen most in the left lower quadrants and hypogastrium. Moving was making the pain worse so he was laying down still in the bed. Pain was 8/[address] here showed acute sigmoid dirverticulitis with possible microperforations. Acute Sigmoid diverticulitis with microperforation and with sepsis S/P RA sigmoidectomy with primary anastamosis for diverticulitis w/ abscess, postop day #3 Patient is a tolerating oral feeding very well. Also had a BM Continue pain management Patient also is participating in ambulation Will continue IV antibiotic and is discharged home Patient will be discharged home once cleared from surgery (2) Depression Status: Chronic Problem Text: Continue home meds (3) GERD (gastroesophageal reflux disease) Status: Chronic Problem Text: Continue home meds (4) CAD (coronary artery disease) Status: Chronic Problem Text: Stable continue home meds Plan/VTE VTE Prophylaxis Ordered?: Yes VS, I&O, 24H, Fishbone Vital Signs/I&O Vital Signs Date Time Temp Pulse Resp B/P (MAP) Pulse Ox O2 Delivery O2 Flow Rate FiO2 07/30/19 10:43 72 160/97 07/30/19 05:42 98.9 17 95 Room Air 07/28/19 10:00 2.0 I&O- Last 24 Hours up to 6 AM 07/30/19 06:00 Intake Total 3040 ml Output Total 3370 ml Balance -330 ml Laboratory Data 24H LABS Laboratory Tests 2 07/30/19 05:23: Immature Granulocyte % (Auto) 1.4, Neutrophils (%) (Auto) 66.5H, Lymphocytes (%) (Auto) 13.5L, Monocytes (%) (Auto) 12.5H, Eosinophils (%) (Auto) 5.4H, Basophils (%) (Auto) 0.7, Neutrophils # (Auto) 5.9, Lymphocytes # (Auto) 1.2L, Monocytes # (Auto) 1.1H, Eosinophils # (Auto) 0.5, Basophils # (Auto) 0.1, Nucleated Red Blood Cells % (auto) 0.0, Anion Gap 8, Glomerular Filtration Rate > 60.0, Calcium Level 9.0, Total Bilirubin 0.8, Aspartate Amino Transf (AST/SGOT) 42H, Alanine Aminotransferase (ALT/SGPT) 48, Alkaline Phosphatase 160H, Total Protein 6.6#, Albumin 2.6L, Albumin/Globulin Ratio 0.7 CBC/BMP Laboratory Tests 07/30/19 05:23 Microbiology Microbiology 07/26/19 Respiratory Virus Panel (PCR) ([facility]) - Final, Complete 07/24/19 Blood Culture - Final, Complete NO GROWTH AFTER 5 DAYS 07/24/19 Blood Culture - Final, Complete NO GROWTH AFTER 5 DAYS ERMIAS ALAN MD Jul 30, 2019 11:35
[2019-07-30] MEDS ORDERED: OXYC-517 PO (15:50)
[2019-07-30] MEDS ORDERED: AMLO5TAB6 PO (15:50)
[2019-07-30] MEDS ORDERED: ALVI12CA PO (15:50)
--- NOTE | 2019-07-30 15:57 | DS.PDOC ---
Discharge Summary General Date of Admission Jul 24, 2019 at 11:23 Date of Discharge 07/30/19 Discharge Summary PROCEDURES PERFORMED DURING STAY: None. ADMITTING DIAGNOSES: 1. Acute diverticulitis. DISCHARGE DIAGNOSES: 1. Acute diverticulitis with microperforation, status post surgical resection, hyperlipidemia, CAD with stents, GERD, PTSD, anxiety, depression, chronic neck pain, migraines. COMPLICATIONS/CHIEF COMPLAINT: Acute Diverticulitis. HISTORY OF PRESENT ILLNESS: This is a 49-year-old male patient with underlying medical history of myocardial infarction (OR) with stents, hyperlipidemia, Gerd, PTSD, anxiety, depression, chronic neck pain, history of herpes, migraine headaches, and sigmoid diverticulitis in 2018 presented to the hospital with Abdominal pain, nausea , vomiting and diarrhea with 2 blood streaked stools. His symptoms started 1 day ago. He was helping a friend move up from [place]. He had gone down there last week and was driving up from there when his symptoms started while he was passing through [place]. He went to an ER in [facility] where he was diagnosed with diverticulitis, without abscess or perforation. He got a dose of oral antibiotics in the ER there. He did not want to get admitted there. He continued to drive up here and immediately came to our ED after arrival here. Here complained of severe sharp pain all over the abdomen most in the left lower quadrants and hypogastrium. Moving was making the pain worse so he was laying down still in the bed. Pain was 8/[address] here showed acute sigmoid dirverticulitis with possible microperforations.. HOSPITAL COURSE: This is a 49-year-old male patient with underlying medical history of myocardial infarction (OR) with stents, hyperlipidemia, Gerd, PTSD, anxiety, depression, chronic neck pain, history of herpes, migraine headaches, and sigmoid diverticulitis in 2018 presented to the hospital with Abdominal pain, nausea , vomiting and diarrhea with 2 blood streaked stools. His symptoms started 1 day ago. He was helping a friend move up from [place]. He had gone down there last week and was driving up from there when his symptoms started while he was passing through [employer]. He went to an ER in [facility] where he was diagnosed with diverticulitis, without abscess or perforation. He got a dose of oral antibiotics in the ER there. He did not want to get admitted there. He continued to drive up here and immediately came to our ED after arrival here. Here complained of severe sharp pain all over the abdomen most in the left lower quadrants and hypogastrium. Moving was making the pain worse so he was laying down still in the bed. Pain was 8/[address] here showed acute sigmoid dirverticulitis with possible microperforations. Acute Sigmoid diverticulitis with microperforation and with sepsis S/P RA sigmoidectomy with primary anastamosis for diverticulitis w/ abscess, postop day #3 Patient is a tolerating oral feeding very well. Also had a BM Tolerated. Pain management very well and will continue same as an outpatient Patient also is participating in ambulation Will DC patient's IV antibiotics on discharge home He'll be seen today by surgery for follow-up and was cleared from surgery. He will be discharged home today on all current medications Patient has been advised to follow with surgery in one week from discharge Dietary consult was also done at the bedside multiple times to prevent the recurrent diverticulitis . DISCHARGE MEDICATIONS: Please see below. ALLERGIES: Please see below. PHYSICAL EXAMINATION ON DISCHARGE: VITAL SIGNS: Please see below. GENERAL: Within normal limits HEENT: PERRLA. Extraocular muscles intact NECK: Supple. Negative JVD, negative lymphadenopathy CARDIOVASCULAR EXAMINATION: , S1, S2, regular RESPIRATORY EXAMINATION: Clear to A&P ABDOMINAL EXAMINATION: , Soft, nontender, bowel sound present. Dressing at the surgical areas EXTREMITIES: No clubbing, cyanosis or edema SKIN: Normal NEUROLOGICAL EXAMINATION: No motor or focal sensory deficit PSYCHIATRIC EXAMINATION: Normal LABORATORY DATA: Please see below. IMAGING: Repeat CT abdomen and pelvis:1. Findings described above are similar to prior examination and consistent with the given history of sigmoid diverticulitis with small contained microperforation. There is a new somewhat larger focus of gas in the right lower quadrant described above which may represent intraluminal gas in a very irregular distal cecal base or possibly enlarging extraluminal focal gas. Close clinical observation and follow-up is recommended. 2. Bibasilar atelectasis increased from prior examination. PROGNOSIS: Good ACTIVITY: As tolerated. DIET: As tolerated DISCHARGE PLAN: Home DISPOSITION: Home . DISCHARGE INSTRUCTIONS: 1. As per discharge instructions. ITEMS TO FOLLOWUP ON ON OUTPATIENT: 1. Follow with surgery in one week. DISCHARGE CONDITION: Stable. TIME SPENT ON DISCHARGE: 35 minutes. Vital Signs/I&Os Vital Signs Date Time Temp Pulse Resp B/P (MAP) Pulse Ox O2 Delivery O2 Flow Rate FiO2 07/30/19 10:43 72 160/97 07/30/19 05:42 98.9 17 95 Room Air 07/28/19 10:00 2.0 I&O- Last 24 Hours up to 6 AM 07/30/19 06:00 Intake Total 3040 ml Output Total 3370 ml Balance -330 ml Laboratory Data Labs 24H Laboratory Tests 2 07/30/19 05:23: Immature Granulocyte % (Auto) 1.4, Neutrophils (%) (Auto) 66.5H, Lymphocytes (%) (Auto) 13.5L, Monocytes (%) (Auto) 12.5H, Eosinophils (%) (Auto) 5.4H, Basophils (%) (Auto) 0.7, Neutrophils # (Auto) 5.9, Lymphocytes # (Auto) 1.2L, Monocytes # (Auto) 1.1H, Eosinophils # (Auto) 0.5, Basophils # (Auto) 0.1, Nucleated Red Blood Cells % (auto) 0.0, Anion Gap 8, Glomerular Filtration Rate > 60.0, Calc ium Level 9.0, Total Bilirubin 0.8, Aspartate Amino Transf (AST/SGOT) 42H, Alanine Aminotransferase (ALT/SGPT) 48, Alkaline Phosphatase 160H, Total Protein 6.6#, Albumin 2.6L, Albumin/Globulin Ratio 0.7 CBC/BMP Laboratory Tests 07/30/19 05:23 Microbiology Microbiology 07/26/19 Respiratory Virus Panel (PCR) ([facility]) - Final, Complete 07/24/19 Blood Culture - Final, Complete NO GROWTH AFTER 5 DAYS 07/24/19 Blood Culture - Final, Complete NO GROWTH AFTER 5 DAYS Discharge Medications Scheduled Alvimopan (Entereg) 12 Mg Capsule, 12 MG PO BID Amlodipine Besylate (Amlodipine Besylate) 5 Mg Tablet, 5 MG PO DAILY Aspirin (Aspirin EC) 81 Mg Tab, 81 MG PO QHS, (Reported) Citalopram Hydrobromide (Celexa) 40 Mg Tablet, 40 MG PO QHS, (Reported) Evolocumab (Repatha Sureclick) 140 Mg/1 Ml Pen.injctr, 140 MG SC Q2WK, (Reported) Pitavastatin Calcium (Livalo) 4 Mg Tab, 4 MG PO QHS, (Reported) Varenicline (Chantix) 1 Mg Tablet, 1 MG PO BID, (Reported) Scheduled PRN Flunisolide (Flunisolide) 25 Ml [place], 1 SPRAY NARES BID PRN for ALLERGIES, (Reported) Hydrocortisone (Hydrocortisone) 453.6 Gm Cream..g., 1 APLCT TOP BID PRN for RASH/ITCHING, (Reported) APPLIES TO HANDS Omeprazole (Omeprazole) 20 Mg Cap, 20 MG PO BID PRN for HEARTBURN, (Reported) Oxycodone HCl (Oxycodone HCl) 5 Mg Tablet, 5 MG PO Q4HP PRN for MODERATE/SEVERE PAIN (PS 5-10) Sildenafil Citrate (Sildenafil Citrate) 100 Mg Tablet, 100 MG PO ASDIRECTED PRN for ERECTILE DYSFUNCTION, (Reported) Valacyclovir HCl (Valtrex) 1,000 Mg Tablet, 1 GM PO DAILY PRN for HERPES OUTBREAK, (Reported) Allergies Coded Allergies: No Known Allergies (Unverified , 12/05/17) ERMIAS ALAN MD Jul 30, 2019 15:57
[2019-07-30] MEDS ORDERED: SULF1TAB23 PO (17:11)
[2019-07-30] MEDS ORDERED: METR-265 PO (17:11)
--- NOTE | 2019-08-01 00:26 | RO ---
DATE OF PROCEDURE: 07/27/2019 into 07/28/2019 PREOPERATIVE DIAGNOSIS: Perforated sigmoid diverticulitis with abscess. POSTOPERATIVE DIAGNOSIS: Perforated sigmoid diverticulitis with abscess. PROCEDURE PERFORMED: Robotic-assisted laparoscopic sigmoid colectomy with colorectostomy and drainage of abscess. SURGEON: Dr. Tung Garner LOOM FIXER HELPER: ANESTHESIA: General. INDICATIONS FOR PROCEDURE: The patient is a 49-year-old man who presented to the hospital on 07/24/2019 with severe lower abdominal pain. He has a history of an episode of severe diverticulitis back in 2018. His current CT showed diverticulitis of the sigmoid with a few small air bubble adjacent. He improved slowly with antibiotics but remained quite tender. A followup CT showed a developing abscess with increased free air in the abscess cavity in the lateral right lower quadrant. He is now for a robotic-assisted laparoscopic sigmoid colectomy with drainage of his abscess. DESCRIPTION OF PROCEDURE: The patient was brought to the operating room and placed on the table in a supine position. He was placed under general endotracheal anesthesia. Thromboembolism deterrents (TEDs) and sequentials were utilized. A Johnson catheter was inserted. The patient was moved into a low lithotomy position with the lower extremities in padded leg holders. The abdomen was prepped and draped in a sterile fashion. 0.25% Marcaine was infiltrated at the trocar sites as needed. A short supraumbilical midline incision was made and a Veress needle was inserted. After a positive hanging drop test, the abdomen was insufflated with carbon dioxide gas. An 8 mm robotic port was placed over a 5 mm scope and advanced through the abdominal wall without difficulty. Initial examination showed a normal appearing liver. Visualized portions of the small and large bowel appeared normal. There was some inflammation noted low in the right lower quadrant against the abdominal wall. An 8 mm port was placed in the left upper quadrant. A 12 mm port was placed in the right lower quadrant along the line with the two previously placed ports. Local anesthesia was injected low in the right lower quadrant, but the area of anticipated placement of this port was overlain by a portion of small bowel. The patient was tilted to a Trendelenburg position. Using a hand grasper, some inflammatory adhesions in the right lower quadrant were opened to allow the loop of small bowel to fall away from the abdominal wall. In so doing, the patient's known small abscess that was trapped lateral to the terminal ileum was opened. The suction trap puller was inserted, and the abscess was evacuated and this area was irrigated with saline. Once the small bowel had been peeled away from the abdominal wall, the fourth trocar, which was 8 mm, was placed in this site. The patient was then rolled approximately 10 degrees to the right along with the 17 degrees of Trendelenburg. The da Louie XI patient cart was brought into position. The endoscope port was docked to the supraumbilical site. The endoscope was inserted and targeting took place in the pelvis. The additional robotic arms were then docked. A Force bipolar was inserted in the left upper quadrant and cauterizing scissors and a Prograsp were inserted in the right lower quadrant. I then moved to the control console to begin the procedure. Initially, I probed along the sigmoid colon. There was a band of attachment of the sigmoid colon low in the left lower quadrant. This was just a thin band that attached to colon laterally, and this was divided with the scissors. Tracing the colon distally, he certainly had redundant sigmoid colon, which should readily allow for an anastomosis. The inflamed portion of the colon was in the right lower quadrant, and this was overlain by the loop of the terminal ileum that initially extended inferiorly from the cecum and then looped superiorly coming across the inflamed sigmoid colon. The abscess was inspected and using the suction trap puller, the lining debris from the abscess cavity was removed and irrigated. Additional inflammatory adhesions were broken apart to increase the mobility of the terminal ileum. I then moved to dissection of the distal descending and proximal sigmoid. The lateral attachments were divided and colon was mobilized medially to achieve adequate mobilization for delivery of the colon down into the pelvis for anastomosis. I selected a point in the proximal sigmoid colon that seemed to serve as an excellent point for division of the colon leaving length for an anastomosis. An opening was created through the mesentery using the vessel sealer. The bowel was then divided with a 45 mm endoscopic stapler with a green load. The vessel sealer was then used to divide the mesentery. As the patient's history was all consistent with an inflammatory process and not cancer, and there was significant distortion of the colon particularly on the right side as it lay against the retroperitoneum, dissection was carried out close to the bowel wall using the vessel sealer. In this manner, I dissected beginning proximally and working distally around the curve of the sigmoid where the inflammation was the worst. As we came to the area of the terminal ileum, some attachments were divided in this, which likely dated back to his prior episode of diverticulitis in 2018. Care was taken to avoid entering the retroperitoneum and putting the right ureter at risk. Once the area of inflammation and scarring had been passed, I continued dissection working down across the distal sigmoid mesentery extending down to the rectosigmoid junction. In this area, there was no significant inflammation. Dissection was carried up to the bowel wall at the level of the proximal rectum. Once the proximal rectum had been cleared of surrounding fibrofatty tissue, the rectum was divided with a load of the 45 mm stapler with a green load. A second load was required to complete the division and actually a third load was used to finish the final small band of the bowel wall. The specimen was set aside. A test showed that the remaining colon would readily reach down to the level of the rectum. Using the endoscopic scissors and fibrofatty tissue, was dissected along the staple line of the rectal stump to prevent this fibrofatty tissue from interfering with a stapled anastomosis. The right lower quadrant was irrigated and inspected for bleeding, and there was no significant bleeding identified. Likewise, the area of the sigmoid mesentery was inspected and there was no bleeding. The rectum was then inspected by digital rectal exam and EEA sizers all the way up to 33 mm sizer would readily extend up all the way to the rectal stump, which appeared to be at about 17 cm. I returned to the bedside. The patient was returned to a flat position. The supraumbilical site was extended to an approximately 7 cm incision. The fascia was opened through this length. An Philip retractor was inserted, and the specimen was delivered through the wound and sent for permanent pathology as the sigmoid colon. The end of the sigmoid for the anastomosis had been lost from its grasper and so it was necessary to temporarily close the fascia and reinflate the abdomen to grasp the end of the colon, and this was then also delivered through the supraumbilical incision. The staple line was excised and some fibrofatty tissue was dissected off the end of the colon. The vascularity appeared excellent. A pursestring suture of #2-0 Prolene was placed, and the anvil of a 29 mm EEA stapler was placed into the bowel and the pursestring tied down. A second pursestring was placed to perform a more secure approximation of the tissues around the post of the anvil. This was then irrigated and then reduced into the abdomen. The peritoneum was closed with a running suture of Vicryl, and the fascia was closed with interrupted simple sutures of #1 Vicryl. The abdomen was then reinflated. The patient was tilted back to an approximately 15 to 17 degree head down position. I returned to the control console briefly and grasped the anvil of the stapler, and the bowel and brought this down into the pelvis adjacent to the rectum. I then returned to the patient and inserted the EEA powered stapler, the 29 mm, into the rectum and advanced this to the end of the rectal stump. The post of the stapler was advanced, and I then had the dialysis chief equipment technician hold this in place. I returned to the control console of the robot. I used the robotic instrument to complete the advancement of the post through the end of the rectal stump. The anvil was then attached. I then moved back down to the patient's perineum and closed the stapler. With the indicator bar in the green, I fired the powered stapler and then loosened this and removed it. There were two excellent doughnuts of tissue within the stapler. I then went briefly back to the control console and placed a clamp across the distal sigmoid colon. I then inserted a colonoscope into the rectum and advanced this to the level of the anastomosis. The tissues all appeared well vascularized with no excessive bleeding at the staple line. The staple line was symmetrical. I had placed some saline into the pelvis at the time that the clamp was loosely applied to the sigmoid. Using the colonoscope to insufflate air, there was no evidence of any air leak noted at the level of the anastomosis. A photograph was obtained of the anastomosis with the colonoscope. The scope was removed, and the measurements would indicate that the staple line was at approximately 17 cm. I then returned to the control console. The irrigation was removed from the pelvis. Final inspection was performed for bleeding, and there was no evidence of any significant bleeding. There was no tension noted on the anastomosis. At this point, I returned to the patient bedside. The robotic instruments were removed. A #19-Sinhala Thierry drain was inserted through the lowest right lower quadrant trocar site. This was placed through the area of the abscess along the lateral right lower quadrant and then down into the pelvis adjacent to the anastomosis. The patient was returned to a flat position. The abdomen was deflated, and the remaining trocars were removed. The drain was sutured to the skin with a #2-0 silk. The 12 mm port site was inspected and a #2-0 Vicryl was used to close the anterior fascia overlying the rectus muscle in this area. The skin incisions were closed with buried #4-0 Vicryl. The midline incision was closed with a running subcuticular #4-0 Vicryl. Steri-Strips were applied. A CHG OpSite was placed on the drain site, and this was connected to a Jose Miguel-Garay bulb. Light dressings were applied. The patient's Johnson catheter was removed. He was awakened in the operating room, extubated and moved to the recovery room in stable condition.
--- NOTE | 2019-08-01 17:03 | IPN ---
DATE: 07/30/2019 HISTORY: The patient is now two and a half days postoperative from a robotic-assisted laparoscopic sigmoid colectomy with colorectostomy. He had a small abscess in his right lower quadrant which was drained at the time of his surgery and a drain was left in place. He has done well over the weekend and has been advanced back to a regular diet. He denies any nausea or vomiting and has little pain. Vital signs show that he has had a maximum temperature (T-max) of 100.5 at 08:15 on 07/29/2019 but he has been afebrile since. His pulse is in the 60s and low 70s and his blood pressure has been a little bit elevated but is improved now that his blood pressure medication has been resumed. Intake and output shows that yesterday he had 2600 in with 2700 out. He has had several bowel movements and he denies any blood. Physical examination shows that he is awake and alert and appears comfortable at rest. Heart examination shows a regular rhythm and the lungs are clear. The abdomen shows several small dressings at his operative sites and these are clean and dry. He has bowel sounds present and the abdomen is nondistended. His drain in the right lower quadrant has a minimal amount of serous fluid in the bulb. The drain site looks good. LABORATORY STUDIES: Show a white count of 9, hemoglobin 13, hematocrit of 40, and a platelet count of 317,000. Differential count shows 66% neutrophils, 14% lymphocytes, and 12% monocytes. Chemistry profile shows normal electrolytes except for a potassium at 3.3 and his BUN and creatinine are normal. Glucose is 119. Protein is up to 6.6 with an albumin of 2.6. Pathology is pending. IMPRESSION: The patient appears to be doing very well now two and a half days postoperative from a robotic-assisted laparoscopic sigmoid colectomy for diverticulitis with abscess. He has remained on Zosyn since surgery because of the abscess. PLAN: The patient will be discharged today. I removed his drain as this has been putting out only minimal serous fluid. He will be provided with prescriptions for Septra double-strength and Flagyl. He will take these both for five days to cover the contamination from his small abscess. He was provided a prescription by the hospitalist for some oxycodone for pain. He was also provided a prescription for amlodipine 5 mg by mouth daily for his blood pressure. He will followup on Tuesday08/06/2019 at 03:00 p.m. He will call for any fevers, chills, or wound problems. He was instructed regarding local wound care for his drain site and was advised to avoid any strenuous physical activity over the next month or so. We will review his pathology when that becomes available at the time of his office visit.
== END 2019-07-30 17:40 | disposition home or self-care (01) | DRG 331 ==
LOC: M ED 08:21 → M ED INP 11:23 → ENRESERV 12:01 → M MS5PR 12:45
PROVIDERS: ADMIT Internal Medicine Nephrology; ATTEND Internal Medicine
PROC: 0DBN4ZZ Excision of Sigmoid Colon, Percutaneous Endoscopic Approach (ICD-10-PCS; principal; 2019-07-29)
PROC: 8E0W4CZ Robotic Assisted Procedure of Trunk Region, Percutaneous Endoscopic Approach (ICD-10-PCS; 2019-07-29)
DX: K57.20 Diverticulitis of large intestine with perforation and abscess without bleeding (principal); E78.5 Hyperlipidemia, unspecified; I25.10 Atherosclerotic heart disease of native coronary artery without angina pectoris; Z95.2 Presence of prosthetic heart valve; K21.9 Gastro-esophageal reflux disease without esophagitis; F41.9 Anxiety disorder, unspecified; F32.9 Major depressive disorder, single episode, unspecified; M54.2 Cervicalgia; G43.909 Migraine, unspecified, not intractable, without status migrainosus; I25.2 Old myocardial infarction; Z79.899 Other long term (current) drug therapy; Z79.82 Long term (current) use of aspirin

== ENCOUNTER → 2020-07-08 | Outpatient (REF) | payer OTHER ==
[~2020-07-08] MED LIST changes: +ALVI12CA PO; +AMLO1TAB24 PO; +CELE40TA PO; +FLUN25SP NARES; +HYDR2.5C TOP; +METR-265 PO; +MONT10TA10 PO; -MONT10TA4 PO; +OXYC-517 PO; +REPA140I2 SC; +SILD100T PO; +SULF1TAB23 PO; +VALT1TAB PO; +VARE05TA PO; +VARE1TA PO; +ZOFR4TAB16 IV; +[UNRECOGNIZED DRUG - CODE] IV
[2020-07-09 08:09] LABS: LDL DIRECT 54 mg/dL (0-99)
== END ==
LOC: M LAB REF 12:22
PROVIDERS: ATTEND Internal Medicine
DX: E78.00 Pure hypercholesterolemia, unspecified (principal)

== ENCOUNTER → 2020-10-13 | Outpatient (CLI) | payer OTHER ==
[2020-10-13 10:04] LABS: BASO # 0.1 10^3/uL (0.0-0.2); BASO % 0.8 % (0.0-1.0); EOS # 0.2 10^3/uL (0.0-0.5); EOS % 2.6 % (0.0-3.0); HEMATOCRIT 54.1 % (42.0-52.0); HEMOGLOBIN 18.1 g/dl (13.5-17.5); LYMPH # 1.9 10^3/uL (1.5-5.0); LYMPH % 22.2 % (24.0-44.0); MEAN CORPUSCULAR HEMOGLOBIN 29.3 pg (27.0-33.0); MEAN CORPUSCULAR HGB CONC 33.5 g/dl (32.0-36.5); MEAN CORPUSCULAR VOLUME 87.7 fl (80.0-96.0); MONO # 0.9 10^3/uL (0.0-0.8); MONO % 10.2 % (2.0-8.0); NEUTROPHILS # 5.6 10^3/uL (1.5-8.5); NEUTROPHILS % 63.9 % (36.0-66.0); PLATELET COUNT, AUTOMATED 180 10^3/uL (150-450); RED BLOOD COUNT 6.17 10^6/uL (4.30-6.10); WHITE BLOOD COUNT 8.7 10^3/uL (4.0-10.0)
[2020-10-13 10:07] LABS: APPEARANCE, URINE CLEAR (CLEAR); BACTERIA, URINE AUTO NEGATIVE (NEGATIVE); BILIRUBIN, URINE AUTO NEGATIVE (NEGATIVE); BLOOD, URINE BLOOD NEGATIVE (NEGATIVE); COLOR, URINE YELLOW (YELLOW); GLUCOSE, URINE (UA) AUTO NEGATIVE (NEGATIVE); KETONE, URINE AUTO NEGATIVE (NEGATIVE); LEUKOCYTE ESTERASE, URINE AUTO NEGATIVE (NEGATIVE); MUCUS, URINE SMALL (NEGATIVE); NITRITE, URINE AUTO NEGATIVE (NEGATIVE); PROTEIN, URINE AUTO 2+ mg/dL (NEGATIVE); RBC, URINE AUTO 3 /HPF (0-3); SPECIFIC GRAVITY URINE AUTO 1.019 (1.002-1.035); SQUAMOUS EPITHELIAL CELL UR AU 0 /HPF (0-6); UROBILINOGEN, URINE AUTO 0.2 mg/dL (0.0-2.0); WBC, URINE AUTO 3 /HPF (0-3)
== END ==
LOC: M LAB 09:13
PROVIDERS: ATTEND Surgery
DX: R10.84 Generalized abdominal pain (principal)

== ENCOUNTER → 2021-04-23 | Outpatient (REF) | payer OTHER ==
[~2021-04-23] MED LIST changes: -MONT10TA10 PO; +MONT10TA97 PO
== END ==
LOC: M LAB REF 16:20
PROVIDERS: ATTEND Internal Medicine
DX: E78.00 Pure hypercholesterolemia, unspecified (principal)

== ENCOUNTER → 2021-05-27 | Outpatient (REF) | payer OTHER ==
[2021-05-28 08:10] LABS: LDL DIRECT 12 mg/dL (0-99)
== END ==
LOC: M LAB REF 12:35
PROVIDERS: ATTEND Internal Medicine
DX: E78.00 Pure hypercholesterolemia, unspecified (principal)

== ENCOUNTER → 2021-06-29 | Outpatient (REF) | payer OTHER ==
[~2021-06-29] MED LIST changes: +ASPI-596 PO; -EXCEDTAB PO
[2021-07-01 08:12] LABS: LDL DIRECT 42 mg/dL (0-99)
== END ==
LOC: M LAB REF 16:31
PROVIDERS: ATTEND Internal Medicine
DX: E78.00 Pure hypercholesterolemia, unspecified (principal)

== ENCOUNTER → 2021-08-06 | Outpatient (REF) | payer OTHER | LOC: M LAB REF 16:53 | PROVIDERS: ATTEND Internal Medicine | DX: E78.00 Pure hypercholesterolemia, unspecified (principal) ==

== ENCOUNTER → 2021-11-06 | Outpatient (REF) | payer OTHER | LOC: M LAB REF 12:07 | PROVIDERS: ATTEND Internal Medicine | DX: M19.90 Unspecified osteoarthritis, unspecified site (principal) ==

== ENCOUNTER → 2022-06-25 | Outpatient (REF) | payer OTHER ==
[~2022-06-25] MED LIST changes: +BUSP10TA PO; +CLOP75TA2 PO; +FLON1SPR NARES; +JARD1TAB PO; +METF-838 PO; +METO1TAB32 PO; +MONT-5 PO; +OMEG1CAP85 PO
[2022-06-28 10:08] LABS: LDL DIRECT 61 mg/dL (0-99)
== END ==
LOC: M LAB REF 16:21
PROVIDERS: ATTEND Internal Medicine
DX: E78.00 Pure hypercholesterolemia, unspecified (principal)

== ENCOUNTER 2022-08-04 11:05 | Day surgery (SDC) | payer OTHER ==
[~2022-08-04] VITALS: Ht 185.4 cm; Wt 93.4 kg
[~2022-08-04 11:05] MED LIST changes: +NS 1,000 ML IV ONE; +TRUL10IN SC
[2022-08-04] MEDS ORDERED: propofoL 200 MG/20 ML VIAL As Ordered ONE (12:48)
[2022-08-04] MEDS ORDERED: LIDOCAINE 2% 100MG/5ML SDV (FOR ANES.) As Ordered ONE (12:48)
[2022-08-04 13:18] VITALS: BP 145/79; O2SAT 97
== END 2022-08-04 13:22 | disposition home or self-care (01) ==
LOC: M OPP 11:05
PROVIDERS: ATTEND Surgery
DX: Z12.11 Encounter for screening for malignant neoplasm of colon (principal); Z86.010 Personal history of colon polyps; D12.6 Benign neoplasm of colon, unspecified; F17.200 Nicotine dependence, unspecified, uncomplicated; Z79.02 Long term (current) use of antithrombotics/antiplatelets; Z79.2 Long term (current) use of antibiotics; Z79.51 Long term (current) use of inhaled steroids; Z79.82 Long term (current) use of aspirin; Z79.84 Long term (current) use of oral hypoglycemic drugs; Z79.899 Other long term (current) drug therapy

== ENCOUNTER → 2022-12-29 | Outpatient (CLI) | payer OTHER ==
[~2022-12-29] MED LIST changes: -NS 1,000 ML IV ONE
== END ==
LOC: M RAD 12:14
PROVIDERS: ATTEND Internal Medicine
DX: Z12.2 Encounter for screening for malignant neoplasm of respiratory organs (principal); F17.210 Nicotine dependence, cigarettes, uncomplicated

== ENCOUNTER → 2023-09-07 | Outpatient (REF) | payer OTHER ==
[~2023-09-07] MED LIST changes: +OMEG-28 PO; -OMEG1CAP85 PO
== END ==
LOC: M LAB REF 16:23
PROVIDERS: ATTEND Internal Medicine
DX: E78.00 Pure hypercholesterolemia, unspecified (principal)

== ENCOUNTER → 2023-12-29 | Outpatient (REF) | payer OTHER ==
[2023-12-31 08:43] LABS: LDL DIRECT 62 mg/dL (<100)
== END ==
LOC: M LAB REF 16:32
PROVIDERS: ATTEND Internal Medicine
DX: E78.00 Pure hypercholesterolemia, unspecified (principal)